=== PATIENT | female | born 1950 | race Caucasian/White ===

== ENCOUNTER → 2018-05-08 | Outpatient (CLI) | payer MEDICARE ==
[~2018-05-08] MED LIST: AMOX1TAB12 PO; ASPI-586 PO; CHOL4PAC3 PO; MELA3TAB PO; NYST1000 PO; VANC125S PO
--- NOTE | 2018-05-08 14:19 | Diagnostic Imaging Report ---
INDICATION: Right leg claudication. FINDINGS: Right common femoral artery is patent and does show biphasic waveforms. There are monophasic waveforms throughout the remainder of the right lower extremity including the entire SFA and popliteal artery as well as the posterior tibial artery. The anterior tibial as well as the dorsalis pedis are not visualized. No significant velocity elevation or high-grade stenosis is seen. IMPRESSION: Abnormal right lower extremity arterial Doppler demonstrating primarily monophasic flow. Only single vessel flow at the ankle is identified via the posterior tibial artery. No definite femoropopliteal high-grade stenosis or occlusion is seen. Dictated by: Dictated on workstation # [id number]
--- NOTE | 2018-05-08 14:37 | Diagnostic Imaging Report ---
PROCEDURE: US carotid duplex, bilateral. TECHNIQUE: Multiple real-time grayscale images were obtained over the carotid arteries in various projections, bilaterally. Additional spectral analysis and color Doppler duplex images were also obtained. INDICATION: Right carotid bruit. FINDINGS: There is plaquing identified in the right carotid bifurcation as well as the proximal left ICA. There is very mild velocity elevation in the proximal right ICA of 130 cm/s. All other velocities are unremarkable. Both vertebral arteries show antegrade flow. IMPRESSION: Bilateral carotid plaque. There is very mild velocity elevation in the proximal right ICA. No hemodynamically significant stenosis is detected. Parameters based on the consensus panel Min-Scale and Doppler ultrasound criteria published January 2003, Radiology, Volume 229. DOPPLER (peak systolic velocity M/S Right Left CCA 0.75 0.66 ICA Proximal 1.3 0.83 ICA Mid 1.0 0.94 ICA Distal 1.1 0.97 RATIO 1.7 1.5 ECA 1.3 1.0 VERT 0.57 0.27 Dictated by: Dictated on workstation # [id number]
== END ==
LOC: RAD 12:38
PROVIDERS: ATTEND Physician Assistant
DX: I65.23 Occlusion and stenosis of bilateral carotid arteries (principal); I73.9 Peripheral vascular disease, unspecified
CPT/HCPCS: 93880; 93926

== ENCOUNTER 2019-03-07 08:57 | Emergency (ER) | payer MEDICARE ==
[~2019-03-07] VITALS: Ht 165.1 cm; Wt 67.3 kg
[2019-03-07] MEDS ORDERED: CLIN150C17 PO (09:28)
--- NOTE | 2019-03-07 09:28 | ED Integumentary General ---
General Chief Complaint: Skin/Wound Problems Stated Complaint: SCALP REDNESS/PAIN History of Present Illness Date Seen by Provider: Mar 07, 2019 Time Seen by Provider: 09:23 Initial Comments Patient presenting to emergency department for evaluation of rash on the top of her head and forehead that has been present for 2 days but has been a long- standing issue for which she has seen dermatology and had a biopsy done. She said this is exactly the same condition she had in December of last year when she was seen in this emergency department. Quoting the prior physical exam "the entire crown of the patient's had almost half of her scalp is without hair has taken lichenoid tissue and numerous areas of eschar and skin color changes, cannot be certain these are not squamous cell carcinoma or basal cell carcinoma. Slight erythema noted to the entire region with a progressing to involve the entire forehead and bilateral periorbital areas," currently she does not have any periorbital involvement as it is just being crown of her head and her forehead and does not involve the back of her head or neck. She says she feels chills but no measured fevers. The rash is painful and she is on some special Selsun shampoo currently. 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 She is in no obvious distress with normal vital signs. Allergies and Home Medications Allergies Coded Allergies: No Known Drug Allergies (Unverified , 02/16/18) Home Medications Aspirin 81 Mg Tablet.dr, 81 MG PO HS, (Reported) Cholestyramine/Aspartame 4 Gm Powd.pack, 4 GM PO ACHS PRN for DIARRHEA Prescribed by: LUBA BOYLE on 02/15/18 0901 Melatonin 3 Mg Tablet, 3 MG PO HS, (Reported) Nystatin 100,000 Unit/1 Ml Oral.susp, 5 ML PO Q6HR Prescribed by: LUBA BOYLE on 02/21/18 0956 Vancomycin HCl 125 Mg/2.5 Ml Syringe, 125 MG PO QID Prescribed by: LUBA BOYLE on 02/21/18 1001 Patient Home Medication List Home Medication List Reviewed: Yes Review of Systems Review of Systems Constitutional: chills EENTM: no symptoms reported Respiratory: no symptoms reported Cardiovascular: no symptoms reported Gastrointestinal: no symptoms reported Musculoskeletal: no symptoms reported Skin: dryness, pruritus, rash Psychiatric/Neurological: No Symptoms Reported All Other Systems Reviewed Negative Unless Noted: Yes Past Thgkzse-Rmytce-Etunxs Hx Patient Social History Type Used: Cigarettes Former Smoker, Quit: Feb 07, 2018 Recent Foreign Travel: No Recent Hopitalizations: Yes (DC'D 02/15/18) Immunizations Up To Date PED Vaccines UTD: No Seasonal Allergies Seasonal Allergies: No Past Medical History Surgeries: Yes (Stents x 1) Respiratory: Yes Pneumonia, COPD Currently Using CPAP: No Currently Using BIPAP: No Cardiac: Yes Heart Attack Neurological: No Female Reproductive Disorders: Denies Sexually Transmitted Disease: No HIV/AIDS: No Genitourinary: No Bladder Infection Gastrointestinal: No Musculoskeletal: No Endocrine: No HEENT: No Cancer: No Did You Recieve Any Treatments: No Psychosocial: No Integumentary: No Blood Disorders: No Family Medical History No Pertinent Family Hx Physical Exam Vital Signs Capillary Refill : General Appearance: WD/WN, no apparent distress Neck: supple Cardiovascular: regular rate, rhythm Respiratory: no respiratory distress Extremities: normal capillary refill Neurologic/Psychiatric: alert, oriented x 3 Skin: rash (erythematous warm and tender rash involving top of her head and forehead that appears more cytolytic in nature but there is dry scabbed areas on the top of her head as well but no induration or purulence noted.) Skin Problem Location: face, scalp Progress/Results/Core Measures Progress Progress Note : Progress Note According to patient she was put on an antibiotic and a completely resolved the rash within several days and looking at the record appears that she was put on clindamycin. I will place patient on clindamycin again and this is what has helped her in a told to follow with her primary care provider within 2 days to ensure improvement and come back to the emergency Department sooner with worsening pain fevers drainage or other general concerns. Patient aware and agreeable with plan for discharge and verbalized understanding of the above instructions. Departure Impression Primary Impression: Dermatitis Additional Impression: Cellulitis Qualified Codes: L03.811 - Cellulitis of head [any part, except face] Disposition: 01 HOME, SELF-CARE Condition: Stable Departure-Patient Inst. Referrals: SELF,BECCA BRITTON (PCP/Family) Primary Care Physician Patient Instructions: Cellulitis (Skin Infection), Adult (DC) Scripts Clindamycin HCl (Clindamycin HCl) 150 Mg Capsule 450 MG PO TID for 7 Days, CAP Prov: GRACE BARILLAS DO 03/07/19 GRACE BARILLAS DO Mar 07, 2019 09:28 POS
[2019-03-07 09:36] VITALS: BP 158/75
== END 2019-03-07 09:36 | disposition home or self-care (01) ==
LOC: EDUNIT# 08:57 → ER FS 08:59
DX: L30.9 Dermatitis, unspecified (principal); L03.811 Cellulitis of head [any part, except face]; J44.9 Chronic obstructive pulmonary disease, unspecified; I25.2 Old myocardial infarction; Z79.82 Long term (current) use of aspirin
CPT/HCPCS: 99282

== ENCOUNTER 2020-08-31 10:17 | Inpatient (IN) | payer MEDICARE ==
[~2020-08-31] VITALS: Ht 165 cm; Wt 62.8 kg
[~2020-08-31 10:17] MED LIST changes: +CLIN150C18 PO; -MELA3TAB PO; +MELA3TAB39 PO
[2020-08-31] MEDS ORDERED: ASPIRIN 81 MG CHEW (CHILDREN'S ASA) PO STA (10:33)
[2020-08-31] MEDS ORDERED: hydrALAZINE (APESOLINE) 20 MG/ML VIAL IV STA (10:34)
[2020-08-31 10:37] LABS: BASOPHILS # (AUTO) 0.1 10^3/uL (0.0-0.1); BASOPHILS % (AUTO) 1 % (0-10); EOSINOPHILS # (AUTO) 0.2 10^3/uL (0.0-0.3); EOSINOPHILS % (AUTO) 2 % (0-10); HEMATOCRIT 46 % (35-52); HEMOGLOBIN 15.5 G/DL (11.5-16.0); LYMPHOCYTES # (AUTO) 3.3 X 10^3 (1.0-4.0); LYMPHOCYTES % (AUTO) 42 % (12-44); MEAN CORPUSCULAR HEMOGLOBIN 32 PG (25-34); MEAN CORPUSCULAR HGB CONC 34 G/DL (32-36); MEAN CORPUSCULAR VOLUME 96 FL (80-99); MEAN PLATELET VOLUME 9.7 FL (7.4-10.4); MONOCYTES # (AUTO) 0.6 X 10^3 (0.0-1.0); MONOCYTES % (AUTO) 7 % (0-12); NEUTROPHILS # (AUTO) 3.7 X 10^3 (1.8-7.8); NEUTROPHILS % (AUTO) 72 % (42-75); PLATELET COUNT 418 10^3/uL (130-400); WHITE BLOOD COUNT 7.9 10^3/uL (4.3-11.0)
--- NOTE | 2020-08-31 10:41 | ED Chest Pain ---
General Chief Complaint: Chest Pain Stated Complaint: CHEST PAIN/BURNING | LEFT SIDE ARM WEAKNESS Source: patient, spouse History of Present Illness Date Seen by Provider: Aug 31, 2020 Time Seen by Provider: 10:19 Initial Comments 70 yo female presenting with complaints of diffuse chest burning and radiation into neck/throat. this has been going on since night after she had overexerted herself and mowed the lawn and did a lot outdoors. She has had intermittent chest pains since then. She states his pain feels similar to when she had heart attack in the past about 6 years ago. She was in [place] at the time she had heart attack. She also has had some dizzy and light headed sensation at times but been about a week ago. She had been feeling bad all weekend but did not seek medical care as she 'does not like to go to the doctor". She does not take prescription medicines. She is supposed to be taking a blood pressure medicine but again has not followed up had any refills of the medication for over a year. She states it was bothering her stomach so she stopped taking it. She did take an extra baby aspirin Tuesday night and thought it helps with her pain so she has been taking a baby aspirin at night and in the morning the last several days. She denies any nausea or vomiting. She has had shortness of breath and cough but is a smoker. Since her symptoms started she has cut back from a pack a day to 6 to 10 cigarettes a day. She denies any allergies to medications. On the way to the emergency department she was having pain and left arm was heavy and numb. On arrival to the ED the symptoms have resolved. Timing/Duration: intermittent, gone now, 3-4 days Severity/Quality: severe, burning Location: central (across upper chest and into throat/neck) Radiation: neck (/throat) Activities at Onset: activity (mowed the lawn and overexerted herself) Prior CP/Workup: angina, cardiac cath, heart attack (6 years ago with stent) Modifying Factors: improves with rest, improves with other (aspirin) ASA po EMPLOYMENT CONSULTANT: Yes (last night 81 mg) NTG SL EMPLOYMENT CONSULTANT: No Associated Symptoms: No abdominal pain, No back pain, No diaphoresis; dizziness; No edema; fatigue; No fever/chills, No headache; heartburn; No nausea /vomiting, No rash; shortness of breath; No swelling/lump in chest, No syncope; weakness (general) Allergies and Home Medications Allergies Coded Allergies: No Known Drug Allergies (Unverified , 02/16/18) Home Medications Aspirin 81 Mg Tablet.dr, 81 MG PO HS, (Reported) Last Action: Reviewed Melatonin 3 Mg Tablet, 3 MG PO HS, (Reported) Last Action: Reviewed Patient Home Medication List Home Medication List Reviewed: Yes Review of Systems Review of Systems Constitutional: No chills; dizziness; No fever EENTM: No Blurred Vision, No Double Vision Respiratory: Cough, Shortness of Air Cardiovascular: See HPI Gastrointestinal: Denies Nausea, Denies Vomiting Genitourinary: No Symptoms Reported Musculoskeletal: no symptoms reported Skin: No rash Psychiatric/Neurological: Denies Headache; Tingling (left arm with heaviness when she was on her way to the ED) Hematologic/Lymphatic: Denies Blood Clots Past Iilyklq-Rwchep-Jwavuf Hx Past Med/Social Hx: Reviewed Nursing Past Med/Soc Hx Patient Social History Type Used: Cigarettes Former Smoker, Quit: Feb 07, 2018 2nd Hand Smoke Exposure: No Recent Hopitalizations: Yes (DC'D 02/15/18) Immunizations Up To Date PED Vaccines UTD: No Seasonal Allergies Seasonal Allergies: No Past Medical History Surgeries: Yes (Stents x 1) Respiratory: Yes Pneumonia, COPD Currently Using CPAP: No Currently Using BIPAP: No Cardiac: Yes Heart Attack, High Cholesterol, Hypertension Neurological: No Female Reproductive Disorders: Denies 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 3.0oz. 66.903186ms; 24.00 BMI Method:Stated General Appearance: No Apparent Distress, WD/WN HEENT: PERRL/EOMI, Pharynx Normal Neck: Full Range of Motion, Normal Inspection, Non Tender, Supple; No Carotid Bruit Respiratory: Chest Non Tender, Lungs Clear, Normal Breath Sounds, No Accessory Muscle Use, No Respiratory Distress Cardiovascular: Regular Rate, Rhythm, No Murmur, Normal Peripheral Pulses Gastrointestinal: Normal Bowel Sounds, No Pulsatile Mass, Non Tender, Soft Rectal: Deferred Extremity: Normal Capillary Refill, Normal Inspection, Normal Range of Motion, Non Tender, No Calf Tenderness, No Pedal Edema Neurologic/Psychiatric: Alert, Oriented x3, No Motor/Sensory Deficits, 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 resolved on arrival to ED Critical Care Note Critical Care Total Time (minutes) 45 minutes Progress 45 minutes of critical care time was spent with the patient. This time excludes separately billable procedures. Time was spent in obtaining history from the patient and family, ordering test and reviewing results, ordering interventions and reviewing response, discussion with consultants, documentation in the chart. Due to the patient's chest pain and risk of cardiovascular compromise she required my constant and immediate presence and care. Progress/Results/Core Measures Results/Orders Lab Results Laboratory Tests Test 08/31/20 10:24 Range/Units White Blood Count 7.9 4.3-11.0 10^3/uL Red Blood Count 4.85 4.35-5.85 10^6/uL Hemoglobin 15.5 11.5-16.0 G/DL Hematocrit 46 35-52 % Mean Corpuscular Volume 96 80-99 FL Mean Corpuscular Hemoglobin 32 25-34 PG Mean Corpuscular Hemoglobin Concent 34 32-36 G/DL Red Cell Distribution Width 13.9 10.0-14.5 % Platelet Count 418 H 130-400 10^3/uL Mean Platelet Volume 9.7 7.4-10.4 FL Immature Granulocyte % (Auto) 0 % Neutrophils (%) (Auto) 72 42-75 % Lymphocytes (%) (Auto) 42 12-44 % Monocytes (%) (Auto) 7 0-12 % Eosinophils (%) (Auto) 2 0-10 % Basophils (%) (Auto) 1 0-10 % Neutrophils # (Auto) 3.7 1.8-7.8 X 10^3 Lymphocytes # (Auto) 3.3 1.0-4.0 X 10^3 Monocytes # (Auto) 0.6 0.0-1.0 X 10^3 Eosinophils # (Auto) 0.2 0.0-0.3 10^3/uL Basophils # (Auto) 0.1 0.0-0.1 10^3/uL Immature Granulocyte # (Auto) 0.0 0.0-0.1 10^3/uL Prothrombin Time 12.7 12.2-14.7 SEC INR Comment 0.9 0.8-1.4 Activated Partial Thromboplast Time 27 24-35 SEC Sodium Level 139 135-145 MMOL/L Potassium Level 4.4 3.6-5.0 MMOL/L Chloride Level 102 98-107 MMOL/L Carbon Dioxide Level 25 21-32 MMOL/L Anion Gap 12 5-14 MMOL/L Blood Urea Nitrogen 12 7-18 MG/DL Creatinine 0.76 0.60-1.30 MG/DL Estimat Glomerular Filtration Rate > 60 BUN/Creatinine Ratio 16 Glucose Level 102 70-105 MG/DL Calcium Level 10.0 8.5-10.1 MG/DL Corrected Calcium 8.5-10.1 MG/DL Magnesium Level 2.2 1.6-2.4 MG/DL Total Bilirubin 0.3 0.1-1.0 MG/DL Aspartate Amino Transf (AST/SGOT) 21 5-34 U/L Alanine Aminotransferase (ALT/SGPT) 14 0-55 U/L Alkaline Phosphatase 133 40-136 U/L Troponin I 1.58 *H <0.30 NG/ML Pro-B-Type Natriuretic Peptide 1366.0 H <75.0 PG/ML Total Protein 8.7 H 6.4-8.2 GM/DL Albumin 4.6 H 3.2-4.5 GM/DL Lipase 59 8-78 U/L My Orders Orders - EMMY CARSON MD Cbc With Automated Diff (08/31/20 10:33) Magnesium (08/31/20 10:33) Chest 1 View Ap/Pa Only (08/31/20 10:33) Ekg Tracing (08/31/20 10:33) Comprehensive Metabolic Panel (08/31/20 10:33) Protime With Inr (08/31/20 10:33) Partial Thromboplastin Time (08/31/20 10:33) O2 (08/31/20 10:33) Monitor-Rhythm Ecg Trace Only (08/31/20 10:33) Aspirin Chewable Tablet (Baby Aspirin Ch (08/31/20 10:33) Ed Iv/Invasive Line Start (08/31/20 10:33) Lipase (08/31/20 10:33) Troponin I Fs (08/31/20 10:33) Probnp Fs (08/31/20 10:33) Hydralazine Injection (Apresoline Inject (08/31/20 10:34) Ct Head Wo (08/31/20 10:34) Ekg Tracing (08/31/20 11:04) Nitroglycerin 0.4 Mg Btl 25's (Nitrostat (08/31/20 11:15) O2 (08/31/20 11:08) Heparin Drip 77038 Unit/500ml (Heparin (08/31/20 11:15) Heparin (Bolus Per Protocol) (Heparin (B (08/31/20 11:08) Clopidogrel Tablet (Plavix Tablet) (08/31/20 11:08) Morphine Injection (Morphine Injection (08/31/20 11:08) Medications Given in ED Current Medications Medications Dose Ordered Sig/Scottie Route Start Time Stop Time Status Last Admin Dose Admin Nitroglycerin 1 TAB Q 5 MIN X 3 NEEDED PRN SL 08/31/20 11:15 08/31/20 11:12 0.4 MG Vital Signs/I&O 08/31/20 08/31/20 10:20 10:20 Temp 36.7 Pulse 85 Resp 18 B/P (MAP) 211/92 (131) Pulse Ox 97 O2 Delivery Room Air Room Air Progress Progress Note #1: Progress Note obtain ECG, labs, CXR, CT head for dizzy/light headed Initial ECG shows possible ischemic changes with ST depression and flipped t waves in lateral leads. Give aspirin 243 mg since she had 81 mg already at home. For her hypertension will give a dose of hydralazine [address] head and obtaining labs with cardiac enzymes and chest xray. Use Hydralazine instead of beta cezar since she had heart rate in low 60s currently and did not want to further slow her rate. Differential diagnosis includes myocardial infarction in the last few days with staggering chest pain symptoms, acute myocardial infarction, stroke, hypertensive crisis, GERD with esophageal spasm, COPD, pneumonia, lung mass Progress Note #2: Time: 10:58 Progress Note Lab called with troponin of 1.58. Chest x-ray does not show acute process. CT head is also without acute process. When discussing results of elevated troponin with the patient she states that she was having chest pain at 6 or 7 out of 10 that started when she was moving in radiology. Will obtain a repeat electrocardiogram now that she is having chest pain. Counseled that I needed to get her transferred to facility that had cardiology and likely going to [facility]. She was agreeable to go to [facility] in [place]. Ordered nitroglycerin sublingual for her chest pain and in the process of ordering heparin when Dr. Ward with cardiology returned my page. [phone] he accepted the patient and recommended she go straight to [facility] with her having ST elevation and chest pain. He suggested no further nitroglycerin as it could drop her blood pressure. He prefer morphine for pain. Heparin 4000 unit bolus and approximately 1000 units/h after that. He also requested Plavix 300 mg p.o. When I went back to discuss these plans with the patient and family her blood pressure had come down so a fluid bolus was ordered. Also her pain had resolved with a single nitroglycerin 0.4 mg sublingual. Repeat ECG showed now that her lateral lead changes of ischemia with flipped t waves was flattened and now she has ST elevation of 1-2 mm in II, III, aVF. 1128 with IVF bolus infusing and having pt lay flat she has blood pressure improving from 75 systolic up to 99 systolic. Her mental status improved as well. EMS transporting her [facility] to [facility] to go to [facility]. Initial ECG Impression Date: Aug 31, 2020 Initial ECG Impression Time: 10:19 Initial ECG Rate: 67 Initial ECG Rhythm: Normal Sinus Initial ECG Comparisson: No Previous ECG Available Comment Normal sinus rhythm with a heart rate of 67 bpm. IA interval [address] elevation. Repolarization changes in the lateral leads suggesting ischemia with ST depression in 1, aVL, V5, V6. QT intervals 400 ms with a QTc interval 423 ms. There is no prior tracing available for comparison. EKG : EKG Time: 10:59 Rate: 64 Rhythm: Normal Sinus ECG Comparisson: Changed Comment Normal sinus rhythm with a heart rate of 64 bpm. IA interval 170 ms. QT interval 374 ms with a QTc interval 386 ms. Now she has findings for an inferior infarct with ST elevation greater than 1 mm in lead III and greater than was present in lead II. She has flattening of the flipped T waves that were present in the previous electrocardiogram. There is [address] elevation in leads II, III, aVF Diagnostic Imaging Diagonstic Imaging: Xray Plain Films/CT/US/NM/MRI: chest Comments [facility], [place] NAME: BALDO MASSEY [facility] REC#: [id number] PT STATUS: REG ER : 1950 PHYSICIAN: EMMY CARSON MD ADMIT DATE: 08/31/20/ER FS Draft Date of Exam:08/31/20 CHEST 1 VIEW AP/PA ONLY INDICATION: Cough, pain. COMPARISON: 02/13/2020 TECHNIQUE: Single radiograph of the chest dated 08/31/2020 FINDINGS: The cardiac silhouette is within normal limits in size. No significant pulmonary vascular congestion. The lungs are clear. No pleural effusion. No pneumothorax. No acute osseous abnormality. IMPRESSION: Similar-appearing examination without acute cardiopulmonary abnormality. Dictated on workstation # [id number] Dict: 08/31/20 1056 Trans: 08/31/20 1104 [id number] Interpreted by: JAVI LONGO MD Electronically signed by: Reviewed: Reviewed by Nh Diagonstic Imaging: CT Plain Films/CT/US/NM/MRI: head Comments [facility] [place] NAME: BALDO MASSEY [facility] REC#: [id number] PT STATUS: REG ER : 1950 PHYSICIAN: EMMY CARSON MD ADMIT DATE: 08/31/20/ER FS Draft Date of Exam:08/31/20 CT HEAD WO PROCEDURE: CT head without contrast. TECHNIQUE: Multiple contiguous axial images were obtained through the brain without the use of intravenous contrast. Auto Exposure Controls were utilized during the CT exam to meet ALARA standards for radiation dose reduction. INDICATION: Dizziness, lightheadedness, high blood pressure. COMPARISON: None available. FINDINGS: Mild atrophy. No intra-cranial hemorrhage. No intracranial mass, mass effect, midline shift, herniation, hydrocephalus, or extra-axial fluid collection. No definite CT evidence of an acute ischemic infarction. The orbits are unremarkable. The paranasal sinuses are clear. The calvarium and extracalvarial soft tissues are unremarkable. IMPRESSION: No acute intracranial abnormality with mild atrophy present. Should symptoms persist, consideration for an MRI could be made. Dictated on workstation # [id number] Dict: 08/31/20 1057 Trans: 08/31/20 1103 [id number] Interpreted by: JAVI LONGO MD Electronically signed by: Reviewed: Reviewed by Me CP/AMI: Aspirin, B-Cezar (held due to low heart rate), ECG, Nitrates, Transfer (going to laborer/key man in [facility]) Departure Communication (Admissions) Time/Spoke to Admitting Phy: 11:14 d/w Dr. Ward for cardiology and will give pt Plavix 300 mg po, Heparin 4000 unit bolus, then 12 units/kg/hr for ACS heparin protocol. He requested morphine if needed for further pain instead of nitroglycerin. She will go straight to laborer/key man. Impression Primary Impression: Acute myocardial infarction Qualified Codes: I21.3 - ST elevation (STEMI) myocardial infarction of unspecified site Additional Impressions: Chest pain Qualified Codes: R07.89 - Other chest pain Hypertension Qualified Codes: I10 - Essential (primary) hypertension Disposition: 30 STILL A PATIENT Condition: Critical Admissions Decision to Admit Reason: Admit from ER (General) Decision to Admit/Date: Aug 31, 2020 Time/Decision to Admit Time: 11:14 Departure-Patient Inst. Referrals: BECCA SIMON MD (PCP/Family) Primary Care Physician EMMY CARSON MD Aug 31, 2020 10:41
[2020-08-31 10:50] LABS: INR 0.9 (0.8-1.4); PROTHROMBIN TIME PATIENT 12.7 SEC (12.2-14.7)
[2020-08-31 10:51] LABS: ALANINE AMINOTRANSFERASE 14 U/L (0-55); ALBUMIN 4.6 GM/DL (3.2-4.5); ALKALINE PHOSPHATASE 133 U/L (40-136); BILIRUBIN,TOTAL 0.3 MG/DL (0.1-1.0); BUN/CREATININE RATIO 16; CARBON DIOXIDE 25 MMOL/L (21-32); CHLORIDE 102 MMOL/L (98-107); CREATININE SERUM 0.76 MG/DL (0.60-1.30); GFR ESTIMATED > 60; GLUCOSE 102 MG/DL (70-105); POTASSIUM 4.4 MMOL/L (3.6-5.0); SODIUM 139 MMOL/L (135-145); TOTAL PROTEIN 8.7 GM/DL (6.4-8.2)
[2020-08-31 10:58] LABS: MAGNESIUM 2.2 MG/DL (1.6-2.4)
[2020-08-31 11:04] LABS: LIPASE 59 U/L (8-78)
--- NOTE | 2020-08-31 11:04 | Diagnostic Imaging Report ---
PROCEDURE: CT head without contrast. TECHNIQUE: Multiple contiguous axial images were obtained through the brain without the use of intravenous contrast. Auto Exposure Controls were utilized during the CT exam to meet ALARA standards for radiation dose reduction. INDICATION: Dizziness, lightheadedness, high blood pressure. COMPARISON: None available. FINDINGS: Mild atrophy. No intra-cranial hemorrhage. No intracranial mass, mass effect, midline shift, herniation, hydrocephalus, or extra-axial fluid collection. No definite CT evidence of an acute ischemic infarction. The orbits are unremarkable. The paranasal sinuses are clear. The calvarium and extracalvarial soft tissues are unremarkable. IMPRESSION: No acute intracranial abnormality with mild atrophy present. Should symptoms persist, consideration for an MRI could be made. Dictated by: Dictated on workstation # [id number]
--- NOTE | 2020-08-31 11:04 | Diagnostic Imaging Report ---
INDICATION: Cough, pain. COMPARISON: 02/13/2020 TECHNIQUE: Single radiograph of the chest dated 08/31/2020 FINDINGS: The cardiac silhouette is within normal limits in size. No significant pulmonary vascular congestion. The lungs are clear. No pleural effusion. No pneumothorax. No acute osseous abnormality. IMPRESSION: Similar-appearing examination without acute cardiopulmonary abnormality. Dictated by: Dictated on workstation # [id number]
[2020-08-31] MEDS ORDERED: CLOPIDOGREL 300 MG (PLAVIX) TABLET PO STA (11:08)
[2020-08-31] MEDS ORDERED: HEParin 1000 UNIT/ML (10ML VIAL) FOR BOLUS IV ONE (11:08)
[2020-08-31] MEDS ORDERED: morphine INJ 10 MG/ML 1ML (SYR OR VIAL) IVP STA (11:08)
[2020-08-31] MEDS ORDERED: NITROGLYCERIN 0.4 MG SL TABS BTL 25'S SL PRN (11:15)
[2020-08-31] MEDS ORDERED: HEParin DRIP 25000 UNIT/500ML 500 ML IV ONE (11:15)
[2020-08-31] MEDS ORDERED: MIDAZOLAM 5 MG/5 ML (VERSED) VIAL ONE (11:25)
[2020-08-31] MEDS ORDERED: HEParin 1000 UNIT/ML (10ML VIAL) FOR BOLUS ONE (11:25)
[2020-08-31] MEDS ORDERED: NS IV 1000 ML 1,000 ML ONE ×2 (11:25→11:29)
[2020-08-31] MEDS ORDERED: NITRO DRIP 25000 MCG/D5W 250 ML IV ONE (11:25)
[2020-08-31] MEDS ORDERED: LIDOCAINE 1% INJ 20 ML 20 ML VIAL ONE ×3 (11:25→12:27)
[2020-08-31] MEDS ORDERED: HEParin (CATH LAB) 2,000 ML IV ONE (11:25)
[2020-08-31] MEDS ORDERED: fentaNYL INJ 100 MCG/2 ML AMP ONE (11:25)
[2020-08-31] MEDS ORDERED: NS IV 1000 ML 1,000 ML IV STA (11:27)
[2020-08-31] MEDS ORDERED: EPTIFIBATIDE BOLUS 20 ML IV ONE (12:43)
[2020-08-31] MEDS ORDERED: ATROPINE INJECTION 1 MG/10 ML SYR (ABBOTT) ONE (12:51)
[2020-08-31] MEDS ORDERED: CLOPIDOGREL 300 MG (PLAVIX) TABLET PO ONE (12:56)
[2020-08-31] MEDS ORDERED: PATIENT MAY USE OWN MEDS, ALL PO SCH (13:45)
--- NOTE | 2020-08-31 13:58 | Cardiology History & Physical ---
HPI-Cardiology Cardiology H&P Date of Admission 08/31/20 Primary Care Physician Javid Melgar MD Attending Physician Will Ward MD, MA FACP [facility] CCDS Consulting Physician JEAN-PIERRE CC: Chest discomfort HPI: 70 woman who presented to [facility] ER with one day of waxing and waning chest discomfort, worse today, mid sternal, radiating to shoulders, w/o any associated symptoms, mild to moderately severe, w/o aggravating or relieving factors, not experience before. Initially, ECG showed T wave changes and later there was mild ST elevation in inferior lead noted by the ER physician at [facility] who then called us and the patient was transferred to the laboratory coordinator here after her consent for card cath and possible ad hoc cor intervention. No n/v/d. Urgent card cath and cor intervention undertaken (see below) and she is currently feeling well. Review of Systems-Cardiology Review of Systems Constitutional: malaise, tiredness; No weight loss; weight gain Eyes: No vision change Ears/Nose/Throat: No ear discharge, No nasal drainage, No recent hearing loss, No ulcerations Respiratory: SOB with excertion (chronic, slowly progressive) Cardiovascular: As described under HPI Gastrointestinal: As described under HPI Genitourinary: No dysuria, No hematuria, No urine frequency changes Musculoskeletal: No back pain, No joint pain Skin: No rash, No ulcerations Psychiatric/Neurological: No seizure Hematologic: No bleeding abnormalities [id number] Hx Patient Social History Smoking Status: Current Everyday Smoker 2nd Hand Smoke Exposure: No Immunizations Up To Date Tetanus Booster (TDap): Unknown Past Medical History PMH As described under Assessment. Family Medical History Family Medical History: Mother had [place] at age 65 Father had CHF in his late 40s Allergies and Home Medications Allergies Coded Allergies: No Known Drug Allergies (Unverified , 02/16/18) Home Medications Aspirin 81 Mg Tablet.dr, 81 MG PO HS, (Reported) Last Action: Reviewed Melatonin 3 Mg Tablet, 3 MG PO HS, (Reported) Last Action: Reviewed Patient Home Medication List Home Medication List Reviewed: Yes Physical Exam-Cardiology Physical Exam Vital Signs/I&O 08/31/20 08/31/20 08/31/20 10:20 10:20 11:29 Temp 36.7 36.7 Pulse 85 Resp 18 B/P (MAP) 211/92 (131) Pulse Ox 97 O2 Delivery Room Air Room Air Capillary Refill : Less Than 3 Seconds Constitutional: AAO x 3, well-developed, well-nourished HEENT: EOMI, hearing is well preserved; No xanthelasmas are seen Neck: carotid pulses are 2 + bilaterally, with good upstrokes Respiratory: No accessory muscle use; other (Fair air entry, prolonged exp) Cardiovascular: regular rate-rhythm, S1 and S2, systolic murmur (soft NOE at card base) Gastrointestinal: No tender; soft; No guarding, No rebound; audible bowel sounds Extremities: No clubbing, No cyanosis, No significant edema Neurologic/Psychiatric: oriented x 3, other (moves all limbs equally) Skin: normal color, warm/dry; No rash on exposed areas, No ulcerations on expos ed areas Data Review Labs Laboratory Tests 08/31/20 10:24: White Blood Count 7.9, Red Blood Count 4.85, Hemoglobin 15.5, Hematocrit 46, Mean Corpuscular Volume 96, Mean Corpuscular Hemoglobin 32, Mean Corpuscular Hemoglobin Concent 34, Red Cell Distribution Width 13.9, Platelet Count 418H, Mean Platelet Volume 9.7, Immature Granulocyte % (Auto) 0, Neutrophils (%) (Auto) 72, Lymphocytes (%) (Auto) 42, Monocytes (%) (Auto) 7, Eosinophils (%) (Auto) 2, Basophils (%) (Auto) 1, Neutrophils # (Auto) 3.7, Lymphocytes # (Auto) 3.3, Monocytes # (Auto) 0.6, Eosinophils # (Auto) 0.2, Basophils # (Auto) 0.1, Immature Granulocyte # (Auto) 0.0, Prothrombin Time 12.7, INR Comment 0.9, Activated Partial Thromboplast Time 27, Sodium Level 139, Potassium Level 4.4, Chloride Level 102, Carbon Dioxide Level 25, Anion Gap 12, Blood Urea Nitrogen 12, Creatinine 0.76, Estimat Glomerular Filtration Rate > 60, BUN/Creatinine Ratio 16, Glucose Level 102, Calcium Level 10.0, Corrected Calcium , Magnesium Level 2.2, Total Bilirubin 0.3, Aspartate Amino Transf (AST/SGOT) 21, Alanine Aminotransferase (ALT/SGPT) 14, Alkaline Phosphatase 133, Troponin I 1.58*H, Pro-B-Type Natriuretic Peptide 1366.0H, Total Protein 8.7H, Albumin 4.6H, Lipase 59 A/P-Cardiology Assessment/Admission Diagnosis Ac inf wall STEMI, treated with primary PCI on 08/31/20 (see below) CAD - h/o cor stent in [place] several years ago (she does not know details) - card cath of 08/31/20: cor calcium present, 60-70% mid-LAD, patent stents in prox portion of a dominant RCA, distal occlusion of RCA treated with Zuri 2.75 x 18 stent on 08/31/20, posterobasal & diaphragmatic akinesis, LVEF 40% PAD of which she does not know any details - observations at time of card cath of 08/31/20: kissing stents of ostial common iliacs, stent in R common and sup femoral (prevented sheat insertion) Chronic tobacco use (1 ppd) Vague h/o COPD Admission Status: Inpatient Order (span 2 midnights) Reason for Inpatient Admission: Acute ST elevation [place] Discussion and Recomendations * BB * Statin * DAPT * CHRISTOPHE-inhib * Monitor labs * Advised to quit smoking immediately and completely Clinical Quality Measures AMI/AHF: ASA po Prior to arrival: Yes (last night 81 mg) WILL WARD MD FACP FACC CCDS Aug 31, 2020 13:58
[2020-08-31] MEDS ORDERED: ACETAMINOPHEN 325 MG TABLET PO PRN (14:00)
[2020-08-31] MEDS ORDERED: NS IV 500 ML 500 ML IV SCH (15:45)
[2020-08-31] MEDS ORDERED: HEParin DRIP 25000 UNIT/500ML 500 ML IV SCH (16:00)
[2020-08-31] MEDS ORDERED: HEParin 1000 UNIT/ML (10ML VIAL) FOR BOLUS IV PRN (16:00)
[2020-08-31 17:16] LABS: BASOPHILS # (AUTO) 0.1 10^3/uL (0.0-0.1); BASOPHILS % (AUTO) 1 % (0-10); EOSINOPHILS # (AUTO) 0.1 10^3/uL (0.0-0.3); EOSINOPHILS % (AUTO) 1 % (0-10); HEMATOCRIT 38 % (35-52); HEMOGLOBIN 12.6 g/dL (11.5-16.0); LYMPHOCYTES # (AUTO) 2.2 10^3/uL (1.0-4.0); LYMPHOCYTES % (AUTO) 27 % (12-44); MEAN CORPUSCULAR HEMOGLOBIN 32 pg (25-34); MEAN CORPUSCULAR HGB CONC 33 g/dL (32-36); MEAN CORPUSCULAR VOLUME 97 fL (80-99); MEAN PLATELET VOLUME 9.9 fL (9.0-12.2); MONOCYTES # (AUTO) 0.5 10^3/uL (0.0-1.0); MONOCYTES % (AUTO) 6 % (0-12); NEUTROPHILS # (AUTO) 5.3 10^3/uL (1.8-7.8); NEUTROPHILS % (AUTO) 66 % (42-75); PLATELET COUNT 308 10^3/uL (130-400); WHITE BLOOD COUNT 8.1 10^3/uL (4.3-11.0)
[2020-08-31 17:50] LABS: NEUTROPHILS % (MANUAL) 65 %
[2020-08-31 17:51] LABS: BAND NEUTROPHILS 1 %; BASOPHILS % (MANUAL) 1 %; BLAST CELLS 1 %; LYMPHOCYTES % (MANUAL) 27 %; METAMYELOCYTES % 1 %; MONOCYTES % (MANUAL) 4 %
[2020-08-31 17:52] LABS: ANISOCYTOSIS SLIGHT; HYPOCHROMASIA SLIGHT
[2020-08-31] MEDS: NS IV 1000 ML 1,000 ML IV SCH (18:12)
--- NOTE | 2020-08-31 18:20 | CARDIAC CATHETERIZATION ---
DATE OF SERVICE: 08/31/2020 CARDIAC CATHETERIZATION AND CORONARY INTERVENTION REPORT The patient is a 70-year-old lady who presented to the [place] [facility] with chest pain for more than 12 hours. Initial electrocardiogram did not show ST elevation. Subsequent electrocardiogram showed mild ST elevation in the inferior leads. She was transferred to this hospital for further evaluation and treatment. Informed consent for cardiac catheterization and ad hoc coronary intervention was obtained. DESCRIPTION OF PROCEDURE: She was brought to the cardiac catheterization laboratory. Right groin was prepared and draped in the usual sterile fashion. Lidocaine 1% was used for local anesthesia. We were able to advance a guidewire into the right femoral artery, but were not able to advance the sheath. This was because the patient has a femoral stent in place, which was not allowing passage of a sheath. Wire was removed and pressure was held, meanwhile, we used the left groin approach, which had been prepared and draped in the usual sterile fashion again, we used 1% lidocaine and we used a modified Seldinger technique to advance a 6-Georgian sheath into the right femoral artery. We then carried out right and left coronary angiography using 6-Georgian JL4 catheter for left coronary angiography and 6-Georgian JR4 catheter was used for right coronary angiography. We then carried out percutaneous intervention of the right coronary artery that is described below. Following the completion of the interventional procedure, we carried out left heart catheterization with a 6-Georgian pigtail catheter. Left ventricular angiography was performed and the pigtail was then pulled back and removed. The left groin sheath was sutured in place. There was good hemostasis at the site of attempted access in the right groin. Overall, the patient tolerated the procedure well. PERCUTANEOUS INTERVENTION OF THE RIGHT CORONARY ARTERY: The right coronary artery was found to be occluded in its distal portion, prior to the origin of the posterior descending branch. We used a 6-Georgian JR4 guide catheter to engage the right coronary artery and a ChoICE floppy wire to cross the lesion and the tip of the wire was placed in the distal, terminal portion of the right coronary artery. We carried out balloon angioplasty with a 2.0 x 30 mm balloon and then stented the lesion with a Zuri 2.75 x 18 mm stent that was deployed at 14 atmospheres. This stent slightly overlaps the distal end of a previously stented segment. The articulation was again ballooned with the stent balloon that was deployed at 20 atmospheres. Subsequent angiography revealed 0% residual stenosis at the previous site of 99% to 100% occlusion and flow throughout the vessel is KANDI 3. Prior to the procedure, flow in the distal vessel was KANDI 0-1. The very distal right coronary artery has a 50 to 60% stenoses that were not intervened on. HEMODYNAMICS: Left ventricular end-diastolic pressure following coronary angiography was 8 mmHg. There is no significant pressure gradient on pullback across the aortic valve. Ascending aortic pressure was 128/50 with a mean of 81 mmHg. CORONARY ANGIOGRAPHY: Coronary calcification is present. Left main coronary artery does not exhibit significant disease. Left anterior descending artery has a fairly long 60% to 70% stenosis in its mid portion. Left circumflex artery is nondominant and has mild plaques. Right coronary artery is stented in its proximal and mid portions and there was occluded in its distal portion. Following deployment of Zuri 2.75 x 18 mm stent in the distal right coronary, there is no significant residual stenosis and flow throughout the vessel has improved from KANDI 0 to KANDI 3. The very distal right coronary artery has 50% to 60% stenosis that were not intervened on. LEFT VENTRICULAR ANGIOGRAPHY: Left ventricular angiography was carried out in the right anterior oblique projection. There is posterobasal and diaphragmatic akinesis. Left ventricular ejection fraction approximately 40%. CONCLUSIONS: 1. Coronary artery disease consisting primarily of distal vessel occlusion of the right coronary to which successful stenting was carried out with Zuri 2.75 x 18 mm stent. The proximal and mid right coronary artery has patent stents. The distal right coronary artery has 50% to 60% stenosis that were not intervened on. The left anterior descending artery has long 60% to 70% stenosis in its mid portion that was not intervened on at this time. 2. Impairment of global left ventricular systolic function with ejection fraction of 40%. 3. Posterobasal and diaphragmatic akinesis. DISCUSSION AND RECOMMENDATIONS: We have advised her to quit smoking immediately and completely. Dual antiplatelet therapy has been initiated and is being continued. Beta michael therapy will be given as tolerated. CHRISTOPHE inhibitor therapy will be given as tolerated by blood pressure. Statin therapy is also being initiated. She remains hospitalized at the time of this dictation. Job ID: [id number] DocumentID: [id number] Dictated Date: 08/31/2020 13:30:[address] Date: 08/31/2020 18:19:58 Dictated By: MARCELLA SUBRAMANIAN MD, MA, FACP, FACC, MTDD
[2020-09-01 02:49] LABS: BASOPHILS # (AUTO) 0.1 10^3/uL (0.0-0.1); BASOPHILS % (AUTO) 1 % (0-10); EOSINOPHILS # (AUTO) 0.2 10^3/uL (0.0-0.3); EOSINOPHILS % (AUTO) 2 % (0-10); HEMATOCRIT 34 % (35-52); HEMOGLOBIN 11.2 g/dL (11.5-16.0); LYMPHOCYTES # (AUTO) 1.7 10^3/uL (1.0-4.0); LYMPHOCYTES % (AUTO) 24 % (12-44); MEAN CORPUSCULAR HEMOGLOBIN 31 pg (25-34); MEAN CORPUSCULAR HGB CONC 33 g/dL (32-36); MEAN CORPUSCULAR VOLUME 95 fL (80-99); MEAN PLATELET VOLUME 10.1 fL (9.0-12.2); MONOCYTES # (AUTO) 0.6 10^3/uL (0.0-1.0); MONOCYTES % (AUTO) 8 % (0-12); NEUTROPHILS # (AUTO) 4.7 10^3/uL (1.8-7.8); NEUTROPHILS % (AUTO) 65 % (42-75); PLATELET COUNT 299 10^3/uL (130-400); WHITE BLOOD COUNT 7.3 10^3/uL (4.3-11.0)
[2020-09-01 03:02] LABS: ALBUMIN 3.3 GM/DL (3.2-4.5); CHLORIDE 112 MMOL/L (98-107); POTASSIUM 3.9 MMOL/L (3.6-5.0); SODIUM 141 MMOL/L (135-145)
[2020-09-01 03:03] LABS: CALCIUM 8.6 MG/DL (8.5-10.1)
[2020-09-01 03:04] LABS: TRIGLYCERIDES 148 MG/DL (<150); VLDL CHOLESTEROL 30 MG/DL (5-40)
[2020-09-01 03:05] LABS: GLUCOSE 89 MG/DL (70-105); TOTAL PROTEIN 6.3 GM/DL (6.4-8.2)
[2020-09-01 03:06] LABS: BILIRUBIN,TOTAL 0.4 MG/DL (0.1-1.0); CARBON DIOXIDE 18 MMOL/L (21-32)
[2020-09-01 03:08] LABS: ALKALINE PHOSPHATASE 78 U/L (40-136); CREATININE SERUM 0.77 MG/DL (0.60-1.30); GFR ESTIMATED > 60; PHOSPHORUS 3.7 MG/DL (2.3-4.7)
[2020-09-01 03:09] LABS: BUN/CREATININE RATIO 17; CHOLESTEROL 232 MG/DL (< 200)
[2020-09-01 03:10] LABS: HDL CHOLESTEROL 44 MG/DL (40-60)
[2020-09-01 03:11] LABS: ALANINE AMINOTRANSFERASE 12 U/L (0-55)
--- NOTE | 2020-09-01 08:07 | Progress Note - Cardiology ---
Cardiology SOAP Progress Note Subjective: Sitting up in bed C/O right groin discomfort No c/o CP, palpitations or SOB States she feels much better this morning Objective: I&O/Vital Signs 08/31/20 08/31/20 08/31/20 09/01/20 22:00 23:00 23:30 00:00 Pulse 82 111 84 81 Resp 27 38 23 20 B/P (MAP) 171/74 (102) 182/88 (119) 148/54 (85) 118/55 (76) Pulse Ox 94 95 94 93 O2 Delivery Room Air Room Air Room Air Room Air 09/01/20 09/01/20 09/01/20 09/01/20 00:00 00:12 01:00 01:00 Temp 37.0 Pulse 86 86 Resp 14 B/P (MAP) 141/79 (99) Pulse Ox 95 O2 Delivery Room Air Room Air 09/01/20 09/01/20 09/01/20 09/01/20 02:00 03:00 04:00 04:02 Pulse 68 64 63 Resp 21 21 20 B/P (MAP) 137/62 (91) 141/62 (95) 118/56 (80) Pulse Ox 94 95 94 O2 Delivery Room Air Room Air Room Air Room Air 09/01/20 09/01/20 09/01/20 09/01/20 04:03 05:00 06:00 06:47 Temp 36.9 Pulse 61 64 79 Resp 9 23 B/P (MAP) 146/64 (94) 145/58 (86) Pulse Ox 96 96 O2 Delivery Room Air Room Air 09/01/20 09/01/20 09/01/20 09/01/20 07:00 07:59 08:00 08:27 Temp 36.9 Pulse 71 85 Resp 19 20 B/P (MAP) 128/56 (80) 138/68 (91) Pulse Ox 96 95 O2 Delivery Room Air Room Air Room Air 09/01/20 00:00 Intake Total 1600 ml Output Total 1000 ml Balance 600 ml Weight (Pounds): 146 Weight (Ounces): 3.0 Weight (Calculated Kilograms): 66.465319 Side: left (right groin with brusing into the thigh; DP/PT pulses palpable;w/d/p) Groin site without hematoma: Yes Condition: DP/PT pulses palpable, extremity w/d/p Bruising: mild bruising Constitutional: AAO x 3, well-developed, well-nourished Respiratory: No accessory muscle use; other (Fair air entry, prolonged exp) Cardiovascular: regular rate-rhythm, S1 and S2, systolic murmur (soft NOE at card base) Gastrointestional: No tender; soft; No guarding, No rebound; audible bowel sounds Extremities: No clubbing, No cyanosis, No significant edema Neurologic/Psychiatric: oriented x 3, other (moves all limbs equally) Skin: normal color, warm/dry; No rash on exposed areas, No ulcerations on exposed areas Results/Procedures: Labs Laboratory Tests 08/31/20 10:24: White Blood Count 7.9, Red Blood Count 4.85, Hemoglobin 15.5, Hematocrit 46, Mean Corpuscular Volume 96, Mean Corpuscular Hemoglobin 32, Mean Corpuscular Hemoglobin Concent 34, Red Cell Distribution Width 13.9, Platelet Count 418H, Mean Platelet Volume 9.7, Immature Granulocyte % (Auto) 0, Neutrophils (%) (Auto) 72, Lymphocytes (%) (Auto) 42, Monocytes (%) (Auto) 7, Eosinophils (%) (Auto) 2, Basophils (%) (Auto) 1, Neutrophils # (Auto) 3.7, Lymphocytes # (Auto) 3.3, Monocytes # (Auto) 0.6, Eosinophils # (Auto) 0.2, Basophils # (Auto) 0.1, Immature Granulocyte # (Auto) 0.0, Prothrombin Time 12.7, INR Comment 0.9, Activated Partial Thromboplast Time 27, Sodium Level 139, Potassium Level 4.4, Chloride Level 102, Carbon Dioxide Level 25, Anion Gap 12, Blood Urea Nitrogen 12, Creatinine 0.76, Estimat Glomerular Filtration Rate > 60, BUN/Creatinine Ratio 16, Glucose Level 102, Calcium Level 10.0, Corrected Calcium , Magnesium Level 2.2, Total Bilirubin 0.3, Aspartate Amino Transf (AST/SGOT) 21, Alanine Aminotransferase (ALT/SGPT) 14, Alkaline Phosphatase 133, Troponin I 1.58*H, Pro-B-Type Natriuretic Peptide 1366.0H, Total Protein 8.7H, Albumin 4.6H, Lipase 59 08/31/20 16:22: White Blood Count 8.1, Red Blood Count 3.98, Hemoglobin 12.6, Hematocrit 38, Mean Corpuscular Volume 97, Mean Corpuscular Hemoglobin 32, Mean Corpuscular Hemoglobin Concent 33, Red Cell Distribution Width 14.1, Platelet Count 308, Mean Platelet Volume 9.9, Immature Granulocyte % (Auto) 0, Neutrophils (%) (Auto) 66, Lymphocytes (%) (Auto) 27, Monocytes (%) (Auto) 6, Eosinophils (%) (Auto) 1, Basophils (%) (Auto) 1, Neutrophils # (Auto) 5.3, Lymphocytes # (Auto) 2.2, Monocytes # (Auto) 0.5, Eosinophils # (Auto) 0.1, Basophils # (Auto) 0.1, Immature Granulocyte # (Auto) 0.0, Neutrophils % (Manual) 65, Lymphocytes % (Manual) 27, Monocytes % (Manual) 4, Eosinophils % (Manual) , Basophils % (Manual) 1, Metamyelocytes % 1, Band Neutrophils 1, Blast Cells 1, Hypochromasia SLIGHT, Anisocytosis SLIGHT 09/01/20 02:25: White Blood Count 7.3, Red Blood Count 3.58L, Hemoglobin 11.2L, Hematocrit 34L, Mean Corpuscular Volume 95, Mean Corpuscular Hemoglobin 31, Mean Corpuscular Hemoglobin Concent 33, Red Cell Distribution Width 14.1, Platelet Count 299, Mean Platelet Volume 10.1, Immature Granulocyte % (Auto) 0, Neutrophils (%) (Auto) 65, Lymphocytes (%) (Auto) 24, Monocytes (%) (Auto) 8, Eosinophils (%) (Auto) 2, Basophils (%) (Auto) 1, Neutrophils # (Auto) 4.7, Lymphocytes # (Auto) 1.7, Monocytes # (Auto) 0.6, Eosinophils # (Auto) 0.2, Basophils # (Auto) 0.1, Immature Granulocyte # (Auto) 0.0, Sodium Level 141, Potassium Level 3.9, Chloride Level 112#H, Carbon Dioxide Level 18L, Anion Gap 11, Blood Urea Nitrogen 13, Creatinine 0.77, Estimat Glomerular Filtration Rate > 60, BUN/Creatinine Ratio 17, Glucose Level 89, Calcium Level 8.6, Corrected Calcium 9.2, Magnesium Level 2.0, Total Bilirubin 0.4, Aspartate Amino Transf (AST/SGOT) 19, Alanine Aminotransferase (ALT/SGPT) 12, Alkaline Phosphatase 78, Total Protein 6.3L, Albumin 3.3, Phosphorus Level 3.7, Triglycerides Level 148, Cholesterol Level 232H, LDL Cholesterol Direct 178H, VLDL Cholesterol 30, HDL Cholesterol 44, Thyroid Stimulating Hormone (TSH) 3.93 Laboratory Tests 08/31/20 10:24 08/31/20 16:22 09/01/20 02:25 A/P: Assessment: Ac inf wall STEMI, treated with primary PCI on 08/31/20 (see below) CAD - h/o cor stent in [place] several years ago (she does not know details) - card cath of 08/31/20: cor calcium present, 60-70% mid-LAD, patent stents in prox portion of a dominant RCA, distal occlusion of RCA treated with Zuri 2.75 x 18 stent on 08/31/20, posterobasal & diaphragmatic akinesis, LVEF 40% PAD of which she does not know any details - observations at time of card cath of 08/31/20: kissing stents of ostial common iliacs, stent in R common and sup femoral (prevented sheath insertion) Chronic tobacco use (1 ppd) Vague h/o COPD Plan: * BB * Statin * DAPT * CHRISTOPHE-inhib * Monitor labs * Advised to quit smoking immediately and completely * Ambulate in halls today Clinical Quality Measures AMI/AHF: ASA po Prior to arrival: Yes (last night 81 mg) CHARLES SINGH Sep 01, 2020 08:07
[2020-09-01] MEDS: lisINopril 5 MG (PRINIVIL) TABLET PO SCH (08:21)
[2020-09-01] MEDS: CLOPIDOGREL 75 MG (PLAVIX) TABLET PO SCH (08:21)
[2020-09-01] MEDS: ASPIRIN 81 MG CHEW (CHILDREN'S ASA) PO SCH (08:21)
[2020-09-01] MEDS ORDERED: ATOR40TA PO (09:10)
[2020-09-01] MEDS ORDERED: MTP25TSR PO (09:10)
[2020-09-01] MEDS ORDERED: ASPI81TA64 PO (09:10)
[2020-09-01] MEDS ORDERED: LISI-729 PO (09:10)
[2020-09-01] MEDS ORDERED: CLOP75TA28 PO (09:10)
[2020-09-01] MEDS: NS IV 1000 ML 1,000 ML IV SCH (11:34)
--- NOTE | 2020-09-01 12:48 | Progress Note - Cardiology ---
Cardiology SOAP Progress Note Subjective: No cp or palp or syncope or leg discomfort Chronic, exertional shortness of breath, unchanged No focal weakness No n/v/d No swelling Objective: I&O/Vital Signs 09/01/20 09/01/20 09/01/20 09/01/20 01:00 01:00 02:00 03:00 Pulse 86 86 68 64 Resp 14 21 21 B/P (MAP) 141/79 (99) 137/62 (91) 141/62 (95) Pulse Ox 95 94 95 O2 Delivery Room Air Room Air Room Air 09/01/20 09/01/20 09/01/20 09/01/20 04:00 04:02 04:03 05:00 Temp 36.9 Pulse 63 61 Resp 20 9 B/P (MAP) 118/56 (80) 146/64 (94) Pulse Ox 94 96 O2 Delivery Room Air Room Air Room Air 09/01/20 09/01/20 09/01/20 09/01/20 06:00 06:47 07:00 07:59 Temp 36.9 Pulse 64 79 71 Resp 23 19 B/P (MAP) 145/58 (86) 128/56 (80) Pulse Ox 96 96 O2 Delivery Room Air Room Air 09/01/20 09/01/20 09/01/20 09/01/20 08:00 08:27 09:00 10:00 Pulse 85 85 82 Resp 20 11 24 B/P (MAP) 138/68 (91) 137/104 (115) 141/64 (89) Pulse Ox 95 97 O2 Delivery Room Air Room Air Room Air Room Air 09/01/20 09/01/20 12:00 12:18 Pulse 80 65 Resp 23 B/P (MAP) 131/46 (74) 131/46 (74) Pulse Ox 95 O2 Delivery Room Air Room Air 09/01/20 00:00 Intake Total 1600 ml Output Total 1000 ml Balance 600 ml Weight (Pounds): 146 Weight (Ounces): 3.0 Weight (Calculated Kilograms): 66.653110 Side: left (right groin with brusing into the thigh; DP/PT pulses palpable;w/d/p) Groin site without hematoma: Yes Condition: DP/PT pulses palpable, extremity w/d/p Bruising: mild bruising, moderated bruising (There is moderate bruisnt and swelling int he R groin, nothing significant on the right) Constitutional: AAO x 3, well-developed, well-nourished Respiratory: No accessory muscle use; other (Fair air entry, prolonged exp) Cardiovascular: regular rate-rhythm, S1 and S2, systolic murmur (soft NOE at card base) Gastrointestional: No tender; soft; No guarding, No rebound; audible bowel sounds Extremities: No clubbing, No cyanosis, No significant edema Neurologic/Psychiatric: oriented x 3, other (moves all limbs equally) Skin: normal color, warm/dry; No rash on exposed areas, No ulcerations on exposed areas Results/Procedures: Labs Laboratory Tests 08/31/20 16:22: White Blood Count 8.1, Red Blood Count 3.98, Hemoglobin 12.6, Hematocrit 38, Mean Corpuscular Volume 97, Mean Corpuscular Hemoglobin 32, Mean Corpuscular Hemoglobin Concent 33, Red Cell Distribution Width 14.1, Platelet Count 308, Mean Platelet Volume 9.9, Immature Granulocyte % (Auto) 0, Neutrophils (%) (Auto) 66, Lymphocytes (%) (Auto) 27, Monocytes (%) (Auto) 6, Eosinophils (%) (Auto) 1, Basophils (%) (Auto) 1, Neutrophils # (Auto) 5.3, Lymphocytes # (Auto) 2.2, Monocytes # (Auto) 0.5, Eosinophils # (Auto) 0.1, Basophils # (Auto) 0.1, Immature Granulocyte # (Auto) 0.0, Neutrophils % (Manual) 65, Lymphocytes % (Manual) 27, Monocytes % (Manual) 4, Eosinophils % (Manual) , Basophils % (Manual) 1, Metamyelocytes % 1, Band Neutrophils 1, Blast Cells 1, Hypochromasia SLIGHT, Anisocytosis SLIGHT 09/01/20 02:25: White Blood Count 7.3, Red Blood Count 3.58L, Hemoglobin 11.2L, Hematocrit 34L, Mean Corpuscular Volume 95, Mean Corpuscular Hemoglobin 31, Mean Corpuscular Hemoglobin Concent 33, Red Cell Distribution Width 14.1, Platelet Count 299, Mean Platelet Volume 10.1, Immature Granulocyte % (Auto) 0, Neutrophils (%) (Auto) 65, Lymphocytes (%) (Auto) 24, Monocytes (%) (Auto) 8, Eosinophils (%) (Auto) 2, Basophils (%) (Auto) 1, Neutrophils # (Auto) 4.7, Lymphocytes # (Auto) 1.7, Monocytes # (Auto) 0.6, Eosinophils # (Auto) 0.2, Basophils # (Auto) 0.1, Immature Granulocyte # (Auto) 0.0, Sodium Level 141, Potassium Level 3.9, Chloride Level 112#H, Carbon Dioxide Level 18L, Anion Gap 11, Blood Urea Nitrogen 13, Creatinine 0.77, Estimat Glomerular Filtration Rate > 60, BUN/Creatinine Ratio 17, Glucose Level 89, Calcium Level 8.6, Corrected Calcium 9.2, Phosphorus Level 3.7, Magnesium Level 2.0, Total Bilirubin 0.4, Aspartate Amino Transf (AST/SGOT) 19, Alanine Aminotransferase (ALT/SGPT) 12, Alkaline Phosphatase 78, Total Protein 6.3L, Albumin 3.3, Triglycerides Level 148, Cholesterol Level 232H, LDL Cholesterol Direct 178H, VLDL Cholesterol 30, HDL Cholesterol 44, Thyroid Stimulating Hormone (TSH) 3.93 Laboratory Tests 08/31/20 10:24 08/31/20 16:22 09/01/20 02:25 A/P: Assessment: R groin hematoma after failed sheath attempt on 08/31/20 Ac inf wall STEMI, treated with primary PCI on 08/31/20 (see below) CAD - h/o cor stent in [place] several years ago (she does not know details) - card cath of 08/31/20: cor calcium present, 60-70% mid-LAD, patent stents in prox portion of a dominant RCA, distal occlusion of RCA treated with Zuri 2.75 x 18 stent on 08/31/20, posterobasal & diaphragmatic akinesis, LVEF 40% PAD of which she does not know any details - observations at time of card cath of 08/31/20: kissing stents of ostial common iliacs, stent in R common and sup femoral (prevented sheath insertion) Chronic tobacco use (1 ppd) Vague h/o COPD Plan: * BB * Statin * DAPT * CHRISTOPHE-inhib * Monitor labs * Advised to quit smoking immediately and completely * Ambulate in halls today * Echo Clinical Quality Measures AMI/AHF: ASA po Prior to arrival: Yes (last night 81 mg) MARCELLA SUBRAMANIAN MD FACP FAC CCDS Sep 01, 2020 12:48
[2020-09-01] MEDS ORDERED: LORazepam 0.5 MG (ATIVAN) TABLET PO ONE (21:00)
[2020-09-02 04:50] LABS: BASOPHILS # (AUTO) 0.1 10^3/uL (0.0-0.1); BASOPHILS % (AUTO) 1 % (0-10); EOSINOPHILS # (AUTO) 0.3 10^3/uL (0.0-0.3); EOSINOPHILS % (AUTO) 4 % (0-10); HEMATOCRIT 30 % (35-52); HEMOGLOBIN 10.2 g/dL (11.5-16.0); LYMPHOCYTES % (AUTO) 28 % (12-44); MEAN CORPUSCULAR HEMOGLOBIN 32 pg (25-34); MEAN CORPUSCULAR HGB CONC 34 g/dL (32-36); MEAN CORPUSCULAR VOLUME 95 fL (80-99); MEAN PLATELET VOLUME 9.9 fL (9.0-12.2); MONOCYTES # (AUTO) 0.6 10^3/uL (0.0-1.0); MONOCYTES % (AUTO) 8 % (0-12); NEUTROPHILS # (AUTO) 4.2 10^3/uL (1.8-7.8); NEUTROPHILS % (AUTO) 60 % (42-75); PLATELET COUNT 260 10^3/uL (130-400); WHITE BLOOD COUNT 7.1 10^3/uL (4.3-11.0)
[2020-09-02 05:19] LABS: BUN/CREATININE RATIO 16; CALCIUM 8.6 MG/DL (8.5-10.1); CARBON DIOXIDE 21 MMOL/L (21-32); CHLORIDE 111 MMOL/L (98-107); CREATININE SERUM 0.76 MG/DL (0.60-1.30); GFR ESTIMATED > 60; GLUCOSE 86 MG/DL (70-105); PHOSPHORUS 3.4 MG/DL (2.3-4.7); POTASSIUM 3.7 MMOL/L (3.6-5.0); SODIUM 141 MMOL/L (135-145)
--- NOTE | 2020-09-02 08:23 | Progress Note - Cardiology ---
Cardiology SOAP Progress Note Subjective: Sitting up in bed eating morning meal States she feels back to normal today C/O mild to mod groin tenderness with ambulation, but states it is better No c/o CP, SOB, palpitations Objective: I&O/Vital Signs 09/01/20 09/01/20 09/02/20 09/02/20 21:00 23:50 01:00 04:36 Temp 37.0 37.0 Pulse 74 67 65 Resp 16 16 B/P (MAP) 143/73 (96) 136/65 (88) Pulse Ox 96 96 O2 Delivery Room Air Room Air Room Air 09/02/20 09/02/20 06:42 07:55 Temp 36.9 Pulse 70 84 Resp 16 B/P (MAP) 132/69 (90) Pulse Ox 98 O2 Delivery Room Air 09/02/20 00:00 Intake Total 490 ml Output Total 300 ml Balance 190 ml Weight (Pounds): 146 Weight (Ounces): 3.0 Weight (Calculated Kilograms): 66.411270 Side: left (right groin with brusing into the thigh; DP/PT pulses pa lpable;w/d/p) Groin site without hematoma: Yes Condition: DP/PT pulses palpable, extremity w/d/p Bruising: mild bruising, moderated bruising (There is moderate bruisnt and swelling int he R groin, nothing significant on the right) Constitutional: AAO x 3, well-developed, well-nourished Respiratory: No accessory muscle use; other (Fair air entry, prolonged exp) Cardiovascular: regular rate-rhythm, S1 and S2, systolic murmur (soft NOE at card base) Gastrointestional: No tender; soft; No guarding, No rebound; audible bowel sounds Extremities: No clubbing, No cyanosis, No significant edema Neurologic/Psychiatric: oriented x 3, other (moves all limbs equally) Skin: normal color, warm/dry; No rash on exposed areas, No ulcerations on exposed areas Results/Procedures: Labs Laboratory Tests 09/02/20 04:21: White Blood Count 7.1, Red Blood Count 3.21L, Hemoglobin 10.2L, Hematocrit 30L, Mean Corpuscular Volume 95, Mean Corpuscular Hemoglobin 32, Mean Corpuscular Hemoglobin Concent 34, Red Cell Distribution Width 13.9, Platelet Count 260, Mean Platelet Volume 9.9, Immature Granulocyte % (Auto) 0, Neutrophils (%) (Auto) 60, Lymphocytes (%) (Auto) 28, Monocytes (%) (Auto) 8, Eosinophils (%) (Auto) 4, Basophils (%) (Auto) 1, Neutrophils # (Auto) 4.2, Lymphocytes # (Auto) 2.0, Monocytes # (Auto) 0.6, Eosinophils # (Auto) 0.3, Basophils # (Auto) 0.1, Immature Granulocyte # (Auto) 0.0, Sodium Level 141, Potassium Level 3.7, Chloride Level 111H, Carbon Dioxide Level 21, Anion Gap 9, Blood Urea Nitrogen 12, Creatinine 0.76, Estimat Glomerular Filtration Rate > 60, BUN/Creatinine Ratio 16, Glucose Level 86, Calcium Level 8.6, Phosphorus Level 3.4, Magnesium Level 2.0 Microbiology 08/31/20 MRSA Screen - Final, Complete MRSA not isolated Laboratory Tests 08/31/20 10:24 08/31/20 16:22 09/01/20 02:25 09/02/20 04:21 A/P: Assessment: R groin hematoma after failed sheath attempt on 08/31/20 - resolved Ac inf wall STEMI, treated with primary PCI on 08/31/20 (see below) CAD - h/o cor stent in [place] several years ago (she does not know details) - card cath of 08/31/20: cor calcium present, 60-70% mid-LAD, patent stents in prox portion of a dominant RCA, distal occlusion of RCA treated with Zuri 2.75 x 18 stent on 08/31/20, posterobasal & diaphragmatic akinesis, LVEF 40% PAD of which she does not know any details - observations at time of card cath of 08/31/20: kissing stents of ostial common iliacs, stent in R common and sup femoral (prevented sheath insertion) Chronic tobacco use (1 ppd) Vague h/o COPD Plan: * Continue current dose of BB, Statin, DAPT, CHRISTOPHE-inhib * Monitor labs * Advised to quit smoking immediately and completely * Has been ambulating without difficulty * Echo - pending * Probable d/c home today with out pt f/u in 1-2 weeks Clinical Quality Measures AMI/AHF: ASA po Prior to arrival: Yes (last night 81 mg) BAIMA,CHARLES L WASHING MACHINE ASSEMBLER Sep 02, 2020 08:23
--- NOTE | 2020-09-02 08:24 | Discharge Inst-Cardiology ---
Discharge Inst-Cardiac Discharge Medications New Medications: Aspirin (Children's Aspirin) 81 Mg Tab.chew 81 MG PO DAILY, #60 TAB 3 Refills Atorvastatin Calcium (Lipitor) 40 Mg Tablet 40 MG PO HS, #90 TAB 3 Refills Clopidogrel Bisulfate (Clopidogrel) 75 Mg Tablet 75 MG PO DAILY, #90 TAB 3 Refills Lisinopril (Lisinopril) 5 Mg Tablet 5 MG PO DAILY, #90 TAB 3 Refills Metoprolol Succinate (Metoprolol Succinate) 25 Mg Tab.er.24h 25 MG PO DAILY, #90 TAB 3 Refills Continued Medications: Melatonin (Melatonin) 3 Mg Tablet 3 MG PO HS, TAB Discontinued Medications: Aspirin (Aspir 81) 81 Mg Tablet. 81 MG PO HS, TAB New, Converted or Re-Newed RX: Transmitted to Pharmacy Patient Instructions Patient Instructions: Martin schedule follow up appointment to see Dr. Ward in 1-2 weeks CHARLES SINGH Sep 02, 2020 08:24
[2020-09-02] MEDS: lisINopril 5 MG (PRINIVIL) TABLET PO SCH (08:51)
[2020-09-02] MEDS: ASPIRIN 81 MG CHEW (CHILDREN'S ASA) PO SCH (08:51)
[2020-09-02] MEDS: CLOPIDOGREL 75 MG (PLAVIX) TABLET PO SCH (08:51)
[2020-09-02 11:31] VITALS: BP 132/69
--- NOTE | 2020-09-02 11:31 | Progress Note - Cardiology ---
Cardiology SOAP Progress Note Subjective: No cp or palp or syncope or shortness of breath No leg or groin discomfort No difficulty walking No n/v/d Objective: I&O/Vital Signs 09/01/20 09/02/20 09/02/20 09/02/20 23:50 01:00 04:36 06:42 Temp 37.0 37.0 Pulse 74 67 65 70 Resp 16 16 B/P (MAP) 143/73 (96) 136/65 (88) Pulse Ox 96 96 O2 Delivery Room Air Room Air 09/02/20 09/02/20 07:55 09:14 Temp 36.9 Pulse 84 Resp 16 B/P (MAP) 132/69 (90) Pulse Ox 98 O2 Delivery Room Air Room Air 09/02/20 00:00 Intake Total 490 ml Output Total 300 ml Balance 190 ml Weight (Pounds): 146 Weight (Ounces): 3.0 Weight (Calculated Kilograms): 66.602732 Side: left (right groin with brusing into the thigh; DP/PT pulses palpable;w/d/p) Groin site without hematoma: Yes Condition: DP/PT pulses palpable, extremity w/d/p Bruising: moderated bruising (There is moderate bruisnt and swelling int he R groin, nothing significant on the right) Constitutional: AAO x 3, well-developed, well-nourished Respiratory: No accessory muscle use; other (Fair air entry, prolonged exp) Cardiovascular: regular rate-rhythm, S1 and S2, systolic murmur (soft NOE at card base) Gastrointestional: No tender; soft; No guarding, No rebound; audible bowel sounds Extremities: No clubbing, No cyanosis, No significant edema Neurologic/Psychiatric: oriented x 3, other (moves all limbs equally) Skin: normal color, warm/dry; No rash on exposed areas, No ulcerations on exposed areas Results/Procedures: Labs Laboratory Tests 09/02/20 04:21: White Blood Count 7.1, Red Blood Count 3.21L, Hemoglobin 10.2L, Hematocrit 30L, Mean Corpuscular Volume 95, Mean Corpuscular Hemoglobin 32, Mean Corpuscular Hemoglobin Concent 34, Red Cell Distribution Width 13.9, Platelet Count 260, Mean Platelet Volume 9.9, Immature Granulocyte % (Auto) 0, Neutrophils (%) (Auto) 60, Lymphocytes (%) (Auto) 28, Monocytes (%) (Auto) 8, Eosinophils (%) (Auto) 4, Basophils (%) (Auto) 1, Neutrophils # (Auto) 4.2, Lymphocytes # (Auto) 2.0, Monocytes # (Auto) 0.6, Eosinophils # (Auto) 0.3, Basophils # (Auto) 0.1, Immature Granulocyte # (Auto) 0.0, Sodium Level 141, Potassium Level 3.7, Chloride Level 111H, Carbon Dioxide Level 21, Anion Gap 9, Blood Urea Nitrogen 12, Creatinine 0.76, Estimat Glomerular Filtration Rate > 60, BUN/Creatinine Ratio 16, Glucose Level 86, Calcium Level 8.6, Phosphorus Level 3.4, Magnesium Level 2.0 Microbiology 08/31/20 MRSA Screen - Final, Complete MRSA not isolated Laboratory Tests 08/31/20 16:22 09/01/20 02:25 09/02/20 04:21 A/P: Assessment: R groin hematoma after failed sheath attempt on 08/31/20 - resolved Ac inf wall STEMI, treated with primary PCI on 08/31/20 (see below) CAD - h/o cor stent in [place] several years ago (she does not know details) - card cath of 08/31/20: cor calcium present, 60-70% mid-LAD, patent stents in prox portion of a dominant RCA, distal occlusion of RCA treated with Zuri 2.75 x 18 stent on 08/31/20, posterobasal & diaphragmatic akinesis, LVEF 40% - echo of 09/01/20 (to f/u on ischemic cardiomyopathy seen at card cath): LVEF 50- 55%, improved motion of inf wall, PASP 20-25% PAD of which she does not know any details - observations at time of card cath of 08/31/20: kissing stents of ostial common iliacs, stent in R common and sup femoral (prevented sheath insertion) Chronic tobacco use (1 ppd) Vague h/o COPD Plan: * Continue current dose of BB, Statin, DAPT, CHRISTOPHE-inhib * Advised compliance with meds, in particular her antiplatelet therapy * Advised to quit smoking immediately and completely * Has been ambulating without difficulty * Echo - pending * Probable d/c home today with out pt f/u in 1-2 weeks Clinical Quality Measures AMI/AHF: ASA po Prior to arrival: Yes (last night 81 mg) MARCELLA SUBRAMANIAN MD FACP FAC CCDS Sep 02, 2020 11:31
--- NOTE | 2020-09-02 11:32 | Cardiology Discharge Summary ---
Diagnosis/Chief Complaint Date of Admission Aug 31, 2020 at 13:41 Date of Discharge Admission Diagnosis 09/02/20 Final/Discharge Diagnosis R groin hematoma after failed sheath attempt on 08/31/20 - resolved Ac inf wall STEMI, treated with primary PCI on 08/31/20 (see below) CAD - h/o cor stent in [place] several years ago (she does not know details) - card cath of 08/31/20: cor calcium present, 60-70% mid-LAD, patent stents in prox portion of a dominant RCA, distal occlusion of RCA treated with Zuri 2.75 x 18 stent on 08/31/20, posterobasal & diaphragmatic akinesis, LVEF 40% - echo of 09/01/20 (to f/u on ischemic cardiomyopathy seen at card cath): LVEF 50- 55%, improved motion of inf wall, PASP 20-25% PAD of which she does not know any details - observations at time of card cath of 08/31/20: kissing stents of ostial common iliacs, stent in R common and sup femoral (prevented sheath insertion) Chronic tobacco use (1 ppd) Vague h/o COPD Chief Complaint/HPI Chief Complaint/HPI CC: Chest discomfort HPI: 70 woman who presented to [facility] ER with one day of waxing and waning chest discomfort, worse today, mid sternal, radiating to shoulders, w/o any associated symptoms, mild to moderately severe, w/o aggravating or relieving factors, not experience before. Initially, ECG showed T wave changes and later there was mild ST elevation in inferior lead noted by the ER physician at [facility] who then called us and the patient was transferred to the label folder here after her consent for card cath and possible ad hoc cor intervention. No n/v/d. Urgent card cath and cor intervention undertaken (see below) and she is currently feeling well. For condition at discharge, please today's progress note. Discharge Summary Hospital Course Pending Labs Laboratory Tests 09/02/20 04:21: White Blood Count 7.1, Red Blood Count 3.21, Hemoglobin 10.2, Hematocrit 30, Mean Corpuscular Volume 95, Mean Corpuscular Hemoglobin 32, Mean Corpuscular Hemoglobin Concent 34, Red Cell Distribution Width 13.9, Platelet Count 260, Mean Platelet Volume 9.9, Immature Granulocyte % (Auto) 0, Neutrophils (%) (Auto) 60, Lymphocytes (%) (Auto) 28, Monocytes (%) (Auto) 8, Eosinophils (%) (Auto) 4, Basophils (%) (Auto) 1, Neutrophils # (Auto) 4.2, Lymphocytes # (Auto) 2.0, Monocytes # (Auto) 0.6, Eosinophils # (Auto) 0.3, Basophils # (Auto) 0.1, Immature Granulocyte # (Auto) 0.0, Sodium Level 141, Potassium Level 3.7, Chloride Level 111, Carbon Dioxide Level 21, Anion Gap 9, Blood Urea Nitrogen 12, Creatinine 0.76, Estimat Glomerular Filtration Rate > 60, BUN/Creatinine Ratio 16, Glucose Level 86, Calcium Level 8.6, Phosphorus Level 3.4, Magnesium Level 2.0 Discussion & Recommendations Home Medications Reviewed patient Home Medication Reconciliation performed by pharmacy medication reconciliations missile and missile checkout technician and/or nursing. Patients Allergies have been reviewed. Discharge Home Medications: Reviewed and agree with Discharge Medication list on patient's Discharge Instruction sheet Clinical Quality Measures AMI/AHF: ASA po Prior to arrival: Yes (last night 81 mg) MARCELLA SUBRAMANIAN MD FACP FACC CCDS Sep 02, 2020 11:32
--- NOTE | 2020-09-02 14:12 | Physician Query Clarification ---
Physician Query-General Query to Physician: The medical record reflects the following clinical evidence: Clinical Indicators: Pro BNP 1366, Echo report showing Grade I diastolic dysfunction, with "normal" systolic function Risk Factor(s): HTN, CAD Treatment: Heart cath with Stent placement, Lisinopril, NTG, Metoprolol 1. Acute diastolic (congestive) heart failure 2. Unspecified diastolic (congestive) heart failure 3. Other explanation of clinical findings 4. Unable to determine (no explanation for clinical findings) Please clarify and document your clinical opinion in the progress notes and discharge summary including the definitive and/or presumptive diagnosis, (suspected or probable), related to the above clinical findings. Please include clinical findings supporting your diagnosis. Josseline Gonzalez MSN, RN [phone] [email or web address] PHYSICIAN RESPONSE: Based on the clinical findings in the record, please respond to the query above on this document as an addendum. Physician Response: Physician Response Acute systolic and diastolic CHF. LVEF 40% at time of card cath and cor intervention, improved subsequently If you have questions please contact: Orthotist: Ext: Thank you for your time and cooperation. Clinical Abrasive Wheel Molder/Orthotist This is a permanent part of the medical record JOSSELINE GONZALEZ Sep 02, 2020 14:12 MARCELLA SUBRAMANIAN MD [facility] Sep 05, 2020 16:15
== END 2020-09-02 11:30 | disposition home or self-care (01) | DRG 246 ==
LOC: EDUNIT# 10:17 → ER FS 10:19 → CATH 11:29 → ICU 13:41 → OBSVTOIN 13:41 → CSD 09-01 16:18
PROVIDERS: ADMIT Internal Medicine Cardiovascular Disease; ATTEND Internal Medicine Cardiovascular Disease
PROC: 027034Z Dilation of Coronary Artery, One Artery with Drug-eluting Intraluminal Device, Percutaneous Approach (ICD-10-PCS; principal; 2020-08-31)
PROC: 4A023N7 Measurement of Cardiac Sampling and Pressure, Left Heart, Percutaneous Approach (ICD-10-PCS; 2020-08-31)
PROC: B2111ZZ Fluoroscopy of Multiple Coronary Arteries using Low Osmolar Contrast (ICD-10-PCS; 2020-08-31)
PROC: B2151ZZ Fluoroscopy of Left Heart using Low Osmolar Contrast (ICD-10-PCS; 2020-08-31)
DX: I21.19 ST elevation (STEMI) myocardial infarction involving other coronary artery of inferior wall (principal); I50.41 Acute combined systolic (congestive) and diastolic (congestive) heart failure; I97.630 Postprocedural hematoma of a circulatory system organ or structure following a cardiac catheterization; I11.0 Hypertensive heart disease with heart failure; I25.10 Atherosclerotic heart disease of native coronary artery without angina pectoris; J44.9 Chronic obstructive pulmonary disease, unspecified; F17.210 Nicotine dependence, cigarettes, uncomplicated; E78.00 Pure hypercholesterolemia, unspecified; I73.9 Peripheral vascular disease, unspecified; I25.2 Old myocardial infarction; Z95.820 Peripheral vascular angioplasty status with implants and grafts; Z95.5 Presence of coronary angioplasty implant and graft; Z87.01 Personal history of pneumonia (recurrent); Z79.82 Long term (current) use of aspirin
CPT/HCPCS: 36415; 70450; 71045; 80048; 80053; 80061; 83690; 83735; 83880; 84100; 84443; 84484; 85007; 85025; 85027; 85610; 85730; 86850; 86900; 86901; 86920; 87081; 93005; 93041; 93306; 93458

== ENCOUNTER 2020-09-23 08:00 | Day surgery (SDC) | payer MEDICARE ==
[~2020-09-23] VITALS: Ht 165 cm; Wt 62.0 kg
[2020-09-23] VITALS (11 sets, daily range): BP systolic 109–172; BP diastolic 50–71
[2020-09-23 07:48] LABS: HEMATOCRIT 39 % (35-52); HEMOGLOBIN 12.7 g/dL (11.5-16.0); MEAN CORPUSCULAR HEMOGLOBIN 32 pg (25-34); MEAN CORPUSCULAR HGB CONC 33 g/dL (32-36); MEAN CORPUSCULAR VOLUME 99 fL (80-99); MEAN PLATELET VOLUME 9.7 fL (9.0-12.2); PLATELET COUNT 379 10^3/uL (130-400); WHITE BLOOD COUNT 7.1 10^3/uL (4.3-11.0)
[~2020-09-23 08:00] MED LIST changes: +ASPI81TA64 PO; +ATOR40TA PO; +CLOP75TA28 PO; +LISI-729 PO; +MTP25TSR PO; +NS IV 1000 ML 1,000 ML IV SCH
[2020-09-23] MEDS ORDERED: fentaNYL INJ 100 MCG/2 ML AMP ONE (08:05)
[2020-09-23] MEDS ORDERED: MIDAZOLAM 5 MG/5 ML (VERSED) VIAL ONE (08:05)
[2020-09-23 08:07] LABS: INR 1.1 (0.8-1.4); PROTHROMBIN TIME PATIENT 14.2 SEC (12.2-14.7)
[2020-09-23 08:12] LABS: BILIRUBIN,TOTAL 0.5 MG/DL (0.1-1.0); BUN/CREATININE RATIO 14; CALCIUM 9.5 MG/DL (8.5-10.1); CARBON DIOXIDE 23 MMOL/L (21-32); CHLORIDE 107 MMOL/L (98-107); CREATININE SERUM 0.84 MG/DL (0.60-1.30); GFR ESTIMATED > 60; GLUCOSE 87 MG/DL (70-105); POTASSIUM 4.2 MMOL/L (3.6-5.0); SODIUM 140 MMOL/L (135-145)
[2020-09-23 08:13] LABS: ALANINE AMINOTRANSFERASE 18 U/L (0-55); ALKALINE PHOSPHATASE 121 U/L (40-136); CHOLESTEROL 209 MG/DL (< 200); HDL CHOLESTEROL 48 MG/DL (40-60); TOTAL PROTEIN 7.7 GM/DL (6.4-8.2); TRIGLYCERIDES 150 MG/DL (<150); VLDL CHOLESTEROL 30 MG/DL (5-40)
[2020-09-23] MEDS ORDERED: HEParin 1000 UNIT/ML (10ML VIAL) FOR BOLUS ONE (09:06)
[2020-09-23] MEDS ORDERED: CLOPIDOGREL 300 MG (PLAVIX) TABLET PO ONE (09:44)
--- NOTE | 2020-09-23 10:30 | Cardiac Procedure Note-CS/ASA ---
Pre-Procedure Note Pre-Op Procedure Note H&P Reviewed The H&P was reviewed, patient examined and no changes noted. Date H&P Reviewed: Sep 23, 2020 Time H&P Reviewed: 08:45 Conscious Sedation Pre-Proced Time 08:45 ASA Score 3 For ASA 3 and 4: Consider anesthesia and medical clearance. Also, for patients with a history of failed moderate sedation consider anesthesia. Airway Lungs Heart ASA score ASA 1: a normal healthy patient ASA 2: a patient with a mild systemic disease (mid diabetes, controlled hypertension, obesity ASA 3: a patient with a severe systemic disease that limits activity (angina, COPD, prior Myocardial infarction) ASA 4: a patient with an incapacitating disease that is a constant threat to life (CHF, renal failure) ASA 5: a moribund patient not expected to survive 24 hrs. (ruptured aneurysm) ASA 6: a declared brain- patient whose organs are being harvested. For emergent operations, add the letter E after the classification Mallampati Classification Grade 1 Sedation Plan Analgesia, Amnesia, Plan communicated to team members, Discussed options with patient/fam, Discussed risks with patient/fam The patient is an appropriate candidate to undergo the planned procedure, sedation, and anesthesia. The patient immediately re-assessed prior to indication. MARCELLA SUBRAMANIAN MD FACP FAC CCDS Sep 23, 2020 10:29
--- NOTE | 2020-09-23 10:36 | Discharge Inst-Cardiology ---
Discharge Inst-Cardiac Discharge Medications Continued Medications: Aspirin (Children's Aspirin) 81 Mg Tab.chew 81 MG PO DAILY, #60 TAB 3 Refills Atorvastatin Calcium (Lipitor) 40 Mg Tablet 40 MG PO HS, #90 TAB 3 Refills Clopidogrel Bisulfate (Clopidogrel) 75 Mg Tablet 75 MG PO DAILY, #90 TAB 3 Refills Lisinopril (Lisinopril) 5 Mg Tablet 5 MG PO DAILY, #90 TAB 3 Refills Melatonin (Melatonin) 3 Mg Tablet 3 MG PO HS, TAB Metoprolol Succinate (Metoprolol Succinate) 25 Mg Tab.er.24h 25 MG PO DAILY, #90 TAB 3 Refills MARCELLA SUBRAMANIAN MD FACP [facility]S Sep 23, 2020 10:36
--- NOTE | 2020-09-23 10:37 | Discharge Inst-Post CATH ---
Discharge Inst-CATH/EP Post Cardiac Cath/EP D/C Inst Follow Up/[facility] F/u with Dr Ward in 3-4 weeks No smoking Please be compliant with all medications ACTIVITY * Go Home directly and rest. * Limit activity of the leg (or wrist if it was used) for 7 days including aerobics, swimming, jogging, bicycling, etc. * Restrict stair-climbing for 7 days if possible, if not, climb up with your non-cath leg, then bring together on the same step. * Avoid lifting, pushing, pulling or excessive movement of the affected extremity for 7 days. * Customary sexual activity may be resumed after 2 days-use caution not to use a position that strains or causes pain to the affected extremity. * No driving for 24 hours. * NO SMOKING. * Avoid straining for bowel movements for 7 days. * Gentle walking on level ground is allowed. * Returning to work will depend on the type of procedure and the results. Your doctor will discuss this with you. CALL YOUR DOCTOR FOR ANY OF THE FOLLOWING: *If bleeding from the puncture site occurs- Apply gentle pressure to site with clean cloth and call your doctor or EMS. * If a knot or lump forms under the skin, increases in size, or causes pain. * If bruising appears to be worsening or moving further down your leg instead of disappearing. * Temperature above 101 F. CARE OF YOUR GROIN INCISION; * Bruising or purple discoloration of the skin near the puncture site is common. * You may shower only, no bathtub bathing for 5 days. Be careful to avoid slipping as your leg may feel stiff. * If a closure device was used on your femoral artery, please see the attached guide regarding care of the device and your leg. * Leave dressing on FOR 24 hours. CARE OF YOUR WRIST INCISION; * Bruising or purple discoloration of the skin near the puncture site is common. * You may shower. * DO NOT submerge wrist. * Leave dressing on FOR 24 hours. MARCELLA WARD MD [facility] CCDS Sep 23, 2020 10:37
[2020-09-23] MEDS ORDERED: NS IV 1000 ML 1,000 ML IV SCH (10:45)
[2020-09-23] MEDS ORDERED: PATIENT MAY USE OWN MEDS, ALL PO SCH (10:45)
--- NOTE | 2020-09-23 13:44 | OPERATIVE REPORT ---
DATE OF SERVICE: PERIPHERAL ANGIOGRAPHY The patient is a 70-year-old lady who is known to have peripheral vascular disease and has previously had stenting of the common iliac arteries on both sides and stenting of the right superficial femoral artery by Dr. Qureshi at the [facility] in [place], [place]. She has recently been experiencing claudication of the right leg. Informed consent was obtained for peripheral angiography and possible ad hoc intervention. DESCRIPTION OF PROCEDURE: She was brought to the cardiac catheterization laboratory. The left groin was prepared and draped in the usual sterile fashion. Lidocaine 1% was used as local anesthesia. Modified Seldinger technique was used to advance a 5-Azerbaijani sheath in right femoral artery. A 5-Azerbaijani pigtail catheter was used to carry out abdominal aortic angiography with the catheter placed at the level of L1. The pigtail catheter was then pulled back to the level just above aortoiliac bifurcation and bilateral leg artery angiography was performed with runoff down to the level of the ankles. Subsequently, we also performed selective angiography of the right common femoral artery. We used a crossover catheter to advance a Storq wire into the right common femoral artery and then exchanged the catheter for a straight catheter and angiography was performed. We tried various wires to try and get across the complete occlusion in the right superficial femoral artery (which extends from the ostium down to the distal part of this vessel). We were not able to cross the complete occlusion. The wires were removed and the catheter was also removed. We performed angiography of the left femoral artery through the sheath and Mynx was used to achieve hemostasis. She tolerated the procedure well. ABDOMINAL AORTIC ANGIOGRAPHY: Abdominal aortic angiography indicated considerable atherosclerotic disease of the infrarenal abdominal aorta with stenosis of up to approximately 50%. There is considerable plaque formation. There does not appear to be any aneurysm. Renal arteries identified and no significant stenosis seen. BILATERAL LEG ARTERY ANGIOGRAPHY: There are patent kissing stents in the common iliac arteries on both sides. The right iliofemoral system exhibits moderate plaque. The right superficial femoral artery is occluded at its ostium. A stent is seen in the right superficial femoral artery extending from the ostium to the mid vessel but is occluded. The occlusion extends beyond the distal edge of the stent. The distal part of the right superficial femoral artery reconstitutes via collaterals from the deep femoral system. There appears to be a 3-vessel runoff. On the left side, there appears to be a 70% stenosis in the left external iliac artery. The left common femoral, superficial femoral, deep femoral are intact. There is a 3-vessel runoff in the left leg. CONCLUSIONS: 1. Moderate atherosclerosis and stenosis of the infrarenal abdominal aorta. 2. Patent kissing stents in the common iliac arteries. 3. 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 3. A 70% stenosis of the left external iliac artery. DISCUSSION AND RECOMMENDATIONS: We attempted intervention to the occlusion in the right superficial femoral artery, but we were unsuccessful. We are making a referral to Dr. Oscar Qureshi of cardiovascular surgery at [place], [place] for further evaluation and treatment. We advised the patient to quit smoking immediately and completely and to be compliant with medications, including antiplatelet therapy. Job ID: [id number] DocumentID: [id number] Dictated Date: 09/23/2020 11:14:04 Cardiac Cath Lab Technologist Date: 09/23/2020 13:43:37 Dictated By: MARCELLA SUBRAMANIAN MD, MA, FACP, FACC, MTDD
== END 2020-09-23 13:35 | disposition home or self-care (01) ==
LOC: CATH 08:00
PROVIDERS: ATTEND Internal Medicine Cardiovascular Disease
DX: I70.211 Atherosclerosis of native arteries of extremities with intermittent claudication, right leg (principal); I70.0 Atherosclerosis of aorta; I25.10 Atherosclerotic heart disease of native coronary artery without angina pectoris; I25.2 Old myocardial infarction; J44.9 Chronic obstructive pulmonary disease, unspecified; E78.2 Mixed hyperlipidemia; F17.210 Nicotine dependence, cigarettes, uncomplicated; Z95.820 Peripheral vascular angioplasty status with implants and grafts; Z79.82 Long term (current) use of aspirin; Z79.899 Other long term (current) drug therapy; Z79.02 Long term (current) use of antithrombotics/antiplatelets
CPT/HCPCS: 36247; 75625; 75716; 80053; 80061; 85027; 85610; 85730; 87081; C1760; C1769 ×4; C1887 ×3; C1894; 36415

== ENCOUNTER 2021-03-10 10:57 | Observation (INO) | payer MEDICARE ==
[~2021-03-10] VITALS: Ht 165.1 cm; Wt 36.3 kg
[~2021-03-10 10:57] MED LIST changes: -CLIN150C18 PO; +CLIN150C20 PO; -LISI-729 PO; +LISI5TAB20 PO; -NS IV 1000 ML 1,000 ML IV SCH
--- NOTE | 2021-03-10 11:20 | ED Chest Pain ---
General Stated Complaint: CP, Source: patient Exam Limitations: no limitations History of Present Illness Date Seen by Provider: Mar 10, 2021 Time Seen by Provider: 11:06 Initial Comments This is a well-appearing 71-year-old female who presented to the ER via POV with complaints of intermittent burning chest pain for the past week. States that she was seen at [facility] yesterday and kept overnight due to inability of hospital to secure transfer. States that while she was there she was given aspirin, Nitropaste which did relieve her symptoms. However, she was "tired of waiting" for facility to secure transfer and decided to drive POV to this emergency department. She does have significant cardiac history which includes coronary artery disease, hypertension, and prior [place]. In August 2020 she had a coronary stent placed by Dr. Ward to her distal right coronary artery, proximal and mid right coronary artery had patent stents. Her left anterior descending artery has 60-70% stenosis in its mid portion that was not intervened at that time. States that [facility] removed her nitro paste prior to her leaving AGAINST MEDICAL ADVICE. She currently denies any pain at this time. Denies fever, chills, cough, shortness of breath, nausea, vomiting, abdominal pain. Did not receive COVID vaccine. Allergies and Home Medications Allergies Coded Allergies: No Known Drug Allergies (Unverified , 02/16/18) Patient Home Medication List Home Medication List Reviewed: Yes Aspirin (Children's Aspirin) 81 Mg Tab.chew, 81 MG PO DAILY Prescribed by: CHARLES SINGH on 09/01/20909 Atorvastatin Calcium (Lipitor) 40 Mg Tablet, 40 MG PO HS Prescribed by: CHARLES SINGH on 09/01/20909 Clopidogrel Bisulfate (Clopidogrel) 75 Mg Tablet, 75 MG PO DAILY Prescribed by: CHARLES SINGH on 09/01/20909 Lisinopril (Lisinopril) 5 Mg Tablet, 5 MG PO DAILY Prescribed by: CHARLES SINGH on 09/01/20909 Melatonin (Melatonin) 3 Mg Tablet, 3 MG PO HS, (Reported) Entered as Reported by: YESI MCGREGOR on 02/13/18 0855 Metoprolol Succinate (Metoprolol Succinate) 25 Mg Tab.er.24h, 25 MG PO DAILY Prescribed by: CHARLES SINGH on 09/01/20909 Review of Systems Review of Systems Constitutional: no symptoms reported EENTM: No Symptoms Reported Respiratory: No Symptoms Reported Cardiovascular: See HPI Gastrointestinal: No Symptoms Reported Genitourinary: No Symptoms Reported Musculoskeletal: no symptoms reported Skin: no symptoms reported Psychiatric/Neurological: No Symptoms Reported Endocrine: No Symptoms Reported Hematologic/Lymphatic: No Symptoms Reported Past Npzgzsh-Bycmdp-Rgmkin Hx Immunizations Up To Date Tetanus Booster (TDap): Unknown PED Vaccines UTD: No Seasonal Allergies Seasonal Allergies: No Past Medical History Surgeries: Yes (Stents x 1) Coronary Stent Respiratory: Yes Pneumonia, COPD Currently Using CPAP: No Currently Using BIPAP: No Cardiac: Yes Heart Attack, High Cholesterol, Hypertension Neurological: No Female Reproductive Disorders: Denies [employer]OUND [employer] History: Menopausal Sexually Transmitted Disease: No HIV/AIDS: No Genitourinary: No Bladder Infection Gastrointestinal: No Musculoskeletal: No Endocrine: No HEENT: No Cancer: No Did You Recieve Any Treatments: No Psychosocial: No Integumentary: Yes (Compulsive skin picking, cellulitis) Blood Disorders: No Family Medical History No Pertinent Family Hx Physical Exam Vital Signs Vital Signs - First Documented 03/10/21 11:02 Pulse 60 Resp 19 B/P (MAP) 157/73 (101) Pulse Ox 96 O2 Delivery Room Air Capillary Refill : Height, Weight, BMI Height: 5'6.00" Weight: 146lbs. 3.0oz. 66.320509cr; 22.77 BMI Method:Stated General Appearance: No Apparent Distress, WD/WN HEENT: TMs Normal, Pharynx Normal, Moist Mucous Membranes Neck: Full Range of Motion, Normal Inspection, Non Tender, Supple Respiratory: Lungs Clear, Normal Breath Sounds, No Accessory Muscle Use, No Respiratory Distress Cardiovascular: Regular Rate, Rhythm, No Edema, No Murmur Gastrointestinal: Normal Bowel Sounds, No Organomegaly, Non Tender, Soft Rectal: Deferred Extremity: Normal Inspection, Normal Range of Motion Neurologic/Psychiatric: Alert, Oriented x3, No Motor/Sensory Deficits, Normal Mood/Affect Skin: Normal Color, Warm/Dry Progress/Results/Core Measures Results/Orders Lab Results Laboratory Tests Test 03/10/21 11:12 Range/Units White Blood Count 7.9 4.3-11.0 10^3/uL Red Blood Count 3.94 3.80-5.11 10^6/uL Hemoglobin 12.4 11.5-16.0 g/dL Hematocrit 38 35-52 % Mean Corpuscular Volume 96 80-99 fL Mean Corpuscular Hemoglobin 32 25-34 pg Mean Corpuscular Hemoglobin Concent 33 32-36 g/dL Red Cell Distribution Width 13.7 10.0-14.5 % Platelet Count 383 130-400 10^3/uL Mean Platelet Volume 9.9 9.0-12.2 fL Immature Granulocyte % (Auto) 0 % Neutrophils (%) (Auto) 60 42-75 % Lymphocytes (%) (Auto) 29 12-44 % Monocytes (%) (Auto) 6 0-12 % Eosinophils (%) (Auto) 3 0-10 % Basophils (%) (Auto) 1 0-10 % Neutrophils # (Auto) 4.8 1.8-7.8 10^3/uL Lymphocytes # (Auto) 2.3 1.0-4.0 10^3/uL Monocytes # (Auto) 0.5 0.0-1.0 10^3/uL Eosinophils # (Auto) 0.2 0.0-0.3 10^3/uL Basophils # (Auto) 0.1 0.0-0.1 10^3/uL Immature Granulocyte # (Auto) 0.0 0.0-0.1 10^3/uL Prothrombin Time 14.4 12.2-14.7 SEC INR Comment 1.1 0.8-1.4 Activated Partial Thromboplast Time 42 H 24-35 SEC D-Dimer 1.49 H 0.00-0.49 UG/ML Sodium Level 141 135-145 MMOL/L Potassium Level 3.6 3.6-5.0 MMOL/L Chloride Level 107 98-107 MMOL/L Carbon Dioxide Level 25 21-32 MMOL/L Anion Gap 9 5-14 MMOL/L Blood Urea Nitrogen 15 7-18 MG/DL Creatinine 0.98 0.60-1.30 MG/DL Estimat Glomerular Filtration Rate 56 BUN/Creatinine Ratio 15 Glucose Level 103 70-105 MG/DL Calcium Level 9.4 8.5-10.1 MG/DL Corrected Calcium 9.5 8.5-10.1 MG/DL Magnesium Level 2.2 1.6-2.4 MG/DL Total Bilirubin 0.6 0.1-1.0 MG/DL Aspartate Amino Transf (AST/SGOT) 17 5-34 U/L Alanine Aminotransferase (ALT/SGPT) 17 0-55 U/L Alkaline Phosphatase 134 40-136 U/L Creatine Kinase MB 3.4 <6.6 NG/ML Myoglobin 58.1 10.0-92.0 NG/ML Troponin I 0.169 H <0.028 NG/ML B-Type Natriuretic Peptide 254.1 H <100.0 PG/ML Total Protein 7.3 6.4-8.2 GM/DL Albumin 3.9 3.2-4.5 GM/DL Lipase 55 8-78 U/L My Orders Orders - USHA HENLEY GRAPPLE SKIDDER OPERATOR Cbc With Automated Diff (03/10/21 11:14) Magnesium (03/10/21 11:14) Chest 1 View, Ap/Pa Only (03/10/21 11:14) Ekg Tracing (03/10/21 11:14) Comprehensive Metabolic Panel (03/10/21 11:14) Myoglobin Serum (03/10/21 11:14) Protime With Inr (03/10/21 11:14) Partial Thromboplastin Time (03/10/21 11:14) O2 (03/10/21 11:14) Monitor-Rhythm Ecg Trace Only (03/10/21 11:14) Ed Iv/Invasive Line Start (03/10/21 11:14) Creatine Kinase Mb (03/10/21 11:14) Lipase (03/10/21 11:14) Bnp Hussein (03/10/21 11:14) Fibrin Degradation Products (03/10/21 11:14) Troponin I [place] (03/10/21 11:14) Vital Signs/I&O 03/10/21 11:02 Pulse 60 Resp 19 B/P (MAP) 157/73 (101) Pulse Ox 96 O2 Delivery Room Air Progress Progress Note #1: Progress Note Patient examined and in no acute distress. Initiated cardiac work-up. 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 Ward after obtaining labs and imaging. Progress Note #2: Time: 12:07 Progress Note Reviewed case with Dr. Ward, requested patient be admitted to hospitalist with cardiology consult. Would like patient to continue home medications. Plan of care discussed with patient and spouse they are agreeable with plan. Continues to have no chest pain at this time. Initial ECG Impression Date: Mar 10, 2021 Initial ECG Impression Time: 11:15 Initial ECG Rate: 51 Initial ECG Rhythm: S.Mendez Initial ECG Intervals: Normal Initial ECG Impression: Nonspecific Changes Diagnostic Imaging Diagonstic Imaging: Xray Plain Films/CT/US/NM/MRI: chest Comments [facility] [place] NAME: BALDO MASSEY [facility] REC#: [id number] PT STATUS: REG ER : 1950 PHYSICIAN: USHA HENLEY GRAPPLE SKIDDER OPERATOR ADMIT DATE: 03/10/21/ER Draft Date of Exam:03/10/21 CHEST 1 VIEW, AP/PA ONLY INDICATION: Chest pain. Reported diagnosed with NST BRYN yesterday. COMPARISON: 08/31/2020. Portable chest. The lungs are well-aerated. There is no infiltrate or air-trapping. There is cardiomegaly. Aorta is atherosclerotic without aneurysm. No pneumothorax or pleural effusion. IMPRESSION: Cardiomegaly with no acute changes. Dictated on workstation # [id number] Dict: 03/10/21 1138 Trans: 03/10/21 1147 [id number] Interpreted by: JAYJAY LAGUNAS MD Electronically signed by: Departure Communication (Admissions) Time/Spoke to Admitting Phy: 12:58 Dr. Wood Time/Spoke to Consulting Phy: 12:[address] Ward at this time. Impression Primary Impression: Chest pain Disposition: ADMITTED INPATIENT Condition: Stable Admissions Decision to Admit Reason: Admit from ER (General) Decision to Admit/Date: Mar 10, 2021 Time/Decision to Admit Time: 12:00 Departure-Patient Inst. Referrals: BECCA SIMON MD (PCP/Family) Primary Care Physician USHA HENLEY GRAPPLE SKIDDER OPERATOR Mar 10, 2021 11:20
[2021-03-10 11:22] LABS: BASOPHILS # (AUTO) 0.1 10^3/uL (0.0-0.1); BASOPHILS % (AUTO) 1 % (0-10); EOSINOPHILS # (AUTO) 0.2 10^3/uL (0.0-0.3); EOSINOPHILS % (AUTO) 3 % (0-10); HEMATOCRIT 38 % (35-52); HEMOGLOBIN 12.4 g/dL (11.5-16.0); LYMPHOCYTES # (AUTO) 2.3 10^3/uL (1.0-4.0); LYMPHOCYTES % (AUTO) 29 % (12-44); MEAN CORPUSCULAR HEMOGLOBIN 32 pg (25-34); MEAN CORPUSCULAR HGB CONC 33 g/dL (32-36); MEAN CORPUSCULAR VOLUME 96 fL (80-99); MEAN PLATELET VOLUME 9.9 fL (9.0-12.2); MONOCYTES # (AUTO) 0.5 10^3/uL (0.0-1.0); MONOCYTES % (AUTO) 6 % (0-12); NEUTROPHILS # (AUTO) 4.8 10^3/uL (1.8-7.8); NEUTROPHILS % (AUTO) 60 % (42-75); PLATELET COUNT 383 10^3/uL (130-400); WHITE BLOOD COUNT 7.9 10^3/uL (4.3-11.0)
[2021-03-10 11:36] LABS: INR 1.1 (0.8-1.4); PROTHROMBIN TIME PATIENT 14.4 SEC (12.2-14.7)
--- NOTE | 2021-03-10 11:47 | Diagnostic Imaging Report ---
INDICATION: Chest pain. Reported diagnosed with NST BRYN yesterday. COMPARISON: 08/31/2020. Portable chest. The lungs are well-aerated. There is no infiltrate or air-trapping. There is cardiomegaly. Aorta is atherosclerotic without aneurysm. No pneumothorax or pleural effusion. IMPRESSION: Cardiomegaly with no acute changes. Dictated by: Dictated on workstation # [id number]
[2021-03-10 11:52] LABS: ALBUMIN 3.9 GM/DL (3.2-4.5); BILIRUBIN,TOTAL 0.6 MG/DL (0.1-1.0); CALCIUM 9.4 MG/DL (8.5-10.1); CREATINE KINASE MB 3.4 NG/ML (<6.6); CREATININE SERUM 0.98 MG/DL (0.60-1.30); MAGNESIUM 2.2 MG/DL (1.6-2.4); POTASSIUM 3.6 MMOL/L (3.6-5.0); TOTAL PROTEIN 7.3 GM/DL (6.4-8.2)
--- NOTE | 2021-03-10 13:09 | Consultation-Cardiology ---
HPI-Cardiology Cardiology Consultation: Date of Consultation 03/10/21 Time Seen by a Provider: 13:40 Date of Admission 03-10-21 Attending Physician Admitting Physician Javid Melgar MD Consulting Physician Will Ward MD HPI: Chief Complaint: Chest pain Ms. Ohara is a 71yr old female admitted to [facility] from the ED with c/o chest discomfort. She reports approx a week ago she began to have heartburn, pressure which radiates up into her neck with any exertional activity. She reports she felt it was heartburn so she bought an OTC heartburn medicine which did help somewhat, but did not completely resolve her symptoms. She states the discomfort is brought on with exertion, but has woken her up from sleep at night. It can last from several minutes to hours. She reports the discomfort has been progressively worse and more frequent limiting her ability to carry out daily activities. She reports occ palpitations with the chest discomfort. She reports mild exertional SOB. Last episode of chest discomfort was last night while she was in the ED in [place]. She had gotten out of bed to ambulate to the bathroom when she developed chest pressure which she describes as mod to severe. She reports she required help back to bed at that time. No c/o LE swelling. No syncope or near syncope. She reports she had a recent right leg bypass procedure in December by Dr. Qureshi at [facility] in [place], [place]. She continues to smoke cigs. She herself is concerned that her symptoms are d/t a coronary artery blockage. Review of Systems-Cardiology Review of Systems Constitutional: No chills; malaise Eyes: No vision change Ears/Nose/Throat: No epistaxis, No recent hearing loss Respiratory: As described under HPI Cardiovascular: As described under HPI Gastrointestinal: No constipation, No diarrhea, No nausea, No vomiting Genitourinary: No dysuria, No hematuria Musculoskeletal: no symptoms reported Skin: No rash on exposed areas, No ulcerations on exposed areas Psychiatric/Neurological: No anxiety, No depression, No seizure, No focal weakness, No syncope Hematologic: No bleeding abnormalities JAJ-Wlucdp-Hkatro Hx Patient Social History Smoking Status: Current Everyday Smoker 2nd Hand Smoke Exposure: No Have you traveled recently?: No Alcohol Use?: No Pt feels they are or have been: No Tobacco type used: Cigarettes Immunizations Up To Date Tetanus Booster (TDap): Unknown Past Medical History PMH As described under Assessment. Family Medical History Family Medical History: Mother had UT at age 65 Father had CHF in his late 40s Allergies and Home Medications Allergies Coded Allergies: No Known Drug Allergies (Unverified , 02/16/18) Patient Home Medication List Aspirin (Children's Aspirin) 81 Mg Tab.chew, 81 MG PO DAILY Prescribed by: CHARLES SINGH on 09/01/20909 Atorvastatin Calcium (Lipitor) 40 Mg Tablet, 40 MG PO HS Prescribed by: CHARLES SINGH on 09/01/20909 Clopidogrel Bisulfate (Clopidogrel) 75 Mg Tablet, 75 MG PO DAILY Prescribed by: CHARLES SINGH on 09/01/20 09 Lisinopril (Lisinopril) 5 Mg Tablet, 5 MG PO DAILY Prescribed by: CHARLES SINGH on 09/01/20909 Melatonin (Melatonin) 3 Mg Tablet, 3 MG PO HS, (Reported) Entered as Reported by: YESI MCGREGOR on 02/13/18 0855 Metoprolol Succinate (Metoprolol Succinate) 25 Mg Tab.er.24h, 25 MG PO DAILY Prescribed by: CHARLES SINGH on 09/01/20 0910 Physical Exam-Cardiology Physical Exam Vital Signs/I&O 03/10/21 03/10/21 03/10/21 03/10/21 21:00 22:00 23:00 23:11 Temp 37.1 Pulse 52 70 74 84 Resp 15 8 16 15 B/P (MAP) 175/69 175/63 170/58 170/58 Pulse Ox 95 96 96 92 O2 Delivery Room Air Room Air Room Air Room Air 03/11/21 03/11/21 03/11/21 03/11/21 01:00 04:01 07:36 08:18 Temp 36.8 36.2 Pulse 76 60 73 Resp 12 16 B/P (MAP) 147/49 151/65 Pulse Ox 95 96 95 O2 Delivery Room Air Room Air Room Air 03/11/21 08:22 O2 Delivery Room Air 03/11/21 00:00 Intake Total 150 ml Output Total 500 ml Balance -350 ml Capillary Refill : Less Than 3 Seconds Constitutional: AAO x 3, well-developed, well-nourished HEENT: PERRL, hearing is well preserved, oral hygience is good Neck: carotid pulses are 2 + bilaterally Respiratory: No accessory muscle use, No respiratory distress; chest expansion is symmetric, chest is bilaterally symmetric, other (prolonged exp phase) Cardiovascular: regular rate-rhythm; No JVD; S1 and S2 Gastrointestinal: No tender; soft, round, audible bowel sounds Extremities: no lower extremity edema bilateral Neurologic/Psychiatric: grossly intact (moves all extremities) Skin: No rash on exposed areas, No ulcerations on exposed areas Data Review Labs Laboratory Tests 03/10/21 11:12: White Blood Count 7.9, Red Blood Count 3.94, Hemoglobin 12.4, Hematocrit 38, Mean Corpuscular Volume 96, Mean Corpuscular Hemoglobin 32, Mean Corpuscular Hemoglobin Concent 33, Red Cell Distribution Width 13.7, Platelet Count 383, Mean Platelet Volume 9.9, Immature Granulocyte % (Auto) 0, Neutrophils (%) (Auto) 60, Lymphocytes (%) (Auto) 29, Monocytes (%) (Auto) 6, Eosinophils (%) (Auto) 3, Basophils (%) (Auto) 1, Neutrophils # (Auto) 4.8, Lymphocytes # (Auto) 2.3, Monocytes # (Auto) 0.5, Eosinophils # (Auto) 0.2, Basophils # (Auto) 0.1, Immature Granulocyte # (Auto) 0.0, Prothrombin Time 14.4, INR Comment 1.1, Activated Partial Thromboplast Time 42H, D-Dimer 1.49H, Sodium Level 141, Potassium Level 3.6, Chloride Level 107, Carbon Dioxide Level 25, Anion Gap 9, Blood Urea Nitrogen 15, Creatinine 0.98, Estimat Glomerular Filtration Rate 56, BUN/Creatinine Ratio 15, Glucose Level 103, Calcium Level 9.4, Corrected Calcium 9.5, Magnesium Level 2.2, Total Bilirubin 0.6, Aspartate Amino Transf (AST/SGOT) 17, Alanine Aminotransferase (ALT/SGPT) 17, Alkaline Phosphatase 134, Creatine Kinase MB 3.4, Myoglobin 58.1, Troponin I 0.169H, B-Type Natriuretic Peptide 254.1H, Total Protein 7.3, Albumin 3.9, Lipase 55 03/10/21 17:15: Troponin I 0.151H 03/10/21 22:59: Troponin I 0.200H 03/11/21 04:37: White Blood Count 7.5, Red Blood Count 3.43L, Hemoglobin 10.6L, Hematocrit 33L, Mean Corpuscular Volume 97, Mean Corpuscular Hemoglobin 31, Mean Corpuscular Hemoglobin Concent 32, Red Cell Distribution Width 13.7, Platelet Count 333, Mean Platelet Volume 10.3, Immature Granulocyte % (Auto) 0, Neutrophils (%) (Auto) 62, Lymphocytes (%) (Auto) 26, Monocytes (%) (Auto) 8, Eosinophils (%) (Auto) 3, Basophils (%) (Auto) 1, Neutrophils # (Auto) 4.6, Lymphocytes # (Auto) 1.9, Monocytes # (Auto) 0.6, Eosinophils # (Auto) 0.3, Basophils # (Auto) 0.1, Immature Granulocyte # (Auto) 0.0, Sodium Level 141, Potassium Level 3.8, Chloride Level 110H, Carbon Dioxide Level 20L, Anion Gap 11, Blood Urea Nitrogen 15, Creatinine 0.80, Estimat Glomerular Filtration Rate 71, BUN/Creatinine Ratio 19, Glucose Level 99, Calcium Level 8.7, Triglycerides Level 146, Cholesterol Level 141, LDL Cholesterol Direct 87, VLDL Cholesterol 29, HDL Cholesterol 36L Radiology NAME: BALDO OHARA [facility] REC#: [id number] PT STATUS: REG ER : 1950 PHYSICIAN: USHA HENLEY APRN ADMIT DATE: 03/10/21/ER Draft Date of Exam:03/10/21 CHEST 1 VIEW, AP/PA ONLY INDICATION: Chest pain. Reported diagnosed with NST BRYN yesterday. COMPARISON: 08/31/2020. Portable chest. The lungs are well-aerated. There is no infiltrate or air-trapping. There is cardiomegaly. Aorta is atherosclerotic without aneurysm. No pneumothorax or pleural effusion. IMPRESSION: Cardiomegaly with no acute changes. Dictated on workstation # [id number] Dict: 03/10/21 1138 Trans: 03/10/21 1147 [id number] Interpreted by: JAYJAY LAGUNAS MD Electronically signed by: ECG Impression ECG Initial ECG Rhythm: Normal Sinus A/P-Cardiology Assessment/Admission Diagnosis NSTEMI - with angina H/O Ac inf wall STEMI, treated with primary PCI on 08/31/20 (see below) CAD - h/o cor stent in [place] several years ago (she does not know details) - card cath of 08/31/20: cor calcium present, 60-70% mid-LAD, patent stents in prox portion of a dominant RCA, distal occlusion of RCA treated with Zuri 2.75 x 18 stent on 08/31/20, posterobasal & diaphragmatic akinesis, LVEF 40% - echo of 09/01/20 (to f/u on ischemic cardiomyopathy seen at card cath): LVEF 50- 55%, improved motion of inf wall, PASP 20-25% PAD of which she does not know any details - observations at time of card cath of 08/31/20: kissing stents of ostial common iliacs, stent in R common and sup femoral (prevented sheath insertion) - right fem-pop in Dec [address] Qureshi at [facility] in [place], [place] Chronic tobacco use (1 ppd) Vague h/o COPD Discussion and Recomendations Based on continuing chest discomfort, h/o, risk factors and her own concern that her symptoms are d/t coronary artery blockage we advise cardiac cath. We have discussed the procedure, risks, benefits and potential complications of cardiac cath with possible ad hoc coronary intervention. She provides informed consent. Continue ASA and Plavix Montior lab Further recs will be based on her hospital course Request records from [facility] Clinical Quality Measures AMI/AHF: ASA po Prior to arrival: Yes CHARLES SINGH Mar 10, 2021 13:09
[2021-03-10] MEDS ORDERED: LIDOCAINE 1% INJ 20 ML 20 ML VIAL ONE (14:20)
[2021-03-10] MEDS ORDERED: NS IV 1000 ML 1,000 ML ONE (14:20)
[2021-03-10] MEDS ORDERED: HEParin (CATH LAB) 2,000 ML IV ONE (14:20)
[2021-03-10 14:21] VITALS: BP 156/78
[2021-03-10] MEDS ORDERED: fentaNYL INJ 100 MCG/2 ML AMP ONE ×2 (14:22→19:05)
[2021-03-10] MEDS ORDERED: MIDAZOLAM 5 MG/5 ML (VERSED) VIAL ONE (14:22)
[2021-03-10] MEDS ORDERED: NS IV 1000 ML 1,000 ML IV SCH (14:30)
[2021-03-10] MEDS ORDERED: ENOXAPARIN 60 MG/0.6 ML (LOVENOX) SYR SC SCH ×2 (15:00→21:00)
[2021-03-10] MEDS ORDERED: ACETAMINOPHEN 325 MG TABLET PO PRN (15:00)
[2021-03-10] MEDS ORDERED: ONDANSETRON 4 MG/2 ML (SDV) Z0FRAN IVP PRN (15:00)
[2021-03-10] MEDS ORDERED: NITROGLYCERIN 0.4 MG SL TABS BTL 25'S SL PRN (15:00)
[2021-03-10] MEDS ORDERED: CATHETER FLUSH 10 ML SYR IV PRN (15:00)
[2021-03-10] MEDS ORDERED: morphine INJ 4 MG/ML 1 ML (VIAL/SYRINGE) IV PRN (15:00)
[2021-03-10] MEDS ORDERED: HEParin 1000 UNIT/ML (10ML VIAL) FOR BOLUS ONE (15:12)
[2021-03-10] MEDS ORDERED: EPTIFIBATIDE BOLUS 20 ML IV ONE (15:13)
[2021-03-10] MEDS ORDERED: NITRO DRIP 25000 MCG/D5W 250 ML IV ONE (15:13)
[2021-03-10] MEDS ORDERED: CLOPIDOGREL 75 MG (PLAVIX) TABLET ONE (15:46)
[2021-03-10] MEDS ORDERED: ASPIRIN 81 MG CHEW (CHILDREN'S ASA) ONE (15:46)
[2021-03-10 16:02] VITALS: BP 157/73
--- NOTE | 2021-03-10 16:06 | Consultation-Cardiology ---
HPI-Cardiology Cardiology Consultation: Date of Consultation 03/10/21 Time Seen by a Provider: 15:00 Date of Admission Attending Physician Miriam Wood MD Admitting Physician Javid Melgar MD Consulting Physician MARCELLA SUBRAMANIAN MD, MA, FACP, FACC, FSCAI, CCDS HPI: Chief Complaint: Chest pain Ms. Ohara is a 71yr old female admitted to [facility] from the ED with c/o chest discomfort. She reports approx a week ago she began to have heartburn, pressure which radiates up into her neck with any exertional activity. She reports she felt it was heartburn so she bought an OTC heartburn medicine which did help somewhat, but did not completely resolve her symptoms. She states the discomfort is brought on with exertion, but has woken her up from sleep at night. It can last from several minutes to hours. She reports the discomfort has been progressively worse and more frequent limiting her ability to carry out daily activities. She reports occ palpitations with the chest discomfort. She reports mild exertional SOB. Last episode of chest discomfort was last night while she was in the ED in [place]. She had gotten out of bed to ambulate to the bathroom when she developed chest pressure which she describes as mod to severe. She reports she required help back to bed at that time. No c/o LE swelling. No syncope or near syncope. She reports she had a recent right leg bypass procedure in December by Dr. Qureshi at [facility] in [place], [place]. She continues to smoke cigs. She herself is concerned that her symptoms are d/t a coronary artery blockage. Review of Systems-Cardiology Review of Systems Constitutional: No chills; malaise Eyes: No vision change Ears/Nose/Throat: No epistaxis, No recent hearing loss Respiratory: As described under HPI Cardiovascular: As described under HPI Gastrointestinal: No constipation, No diarrhea, No nausea, No vomiting Genitourinary: No dysuria, No hematuria Musculoskeletal: no symptoms reported Skin: No rash on exposed areas, No ulcerations on exposed areas Psychiatric/Neurological: No anxiety, No depression, No seizure, No focal weakness, No syncope Hematologic: No bleeding abnormalities ZCI-[id number]-Kqsyio Hx Patient Social History Smoking Status: Current Everyday Smoker 2nd Hand Smoke Exposure: No Have you traveled recently?: No Alcohol Use?: No Pt feels they are or have been: No Tobacco type used: Cigarettes Immunizations Up To Date Tetanus Booster (TDap): Unknown Past Medical History PMH As described under Assessment. Family Medical History Family Medical History: Mother had MS at age 65 Father had CHF in his late 40s Allergies and Home Medications Allergies Coded Allergies: No Known Drug Allergies (Unverified , 02/16/18) Patient Home Medication List Home Medication List Reviewed: Yes Aspirin (Children's Aspirin) 81 Mg Tab.chew, 81 MG PO DAILY Prescribed by: CHARLES SINGH on 09/01/20 09 Atorvastatin Calcium (Lipitor) 40 Mg Tablet, 40 MG PO HS Prescribed by: CHARLES SINGH on 09/01/20 0910 Clopidogrel Bisulfate (Clopidogrel) 75 Mg Tablet, 75 MG PO DAILY Prescribed by: CHARLES SINGH on 09/01/20 09 Lisinopril (Lisinopril) 5 Mg Tablet, 5 MG PO DAILY Prescribed by: CHARLES SINGH on 09/01/20 09 Melatonin (Melatonin) 3 Mg Tablet, 3 MG PO HS, (Reported) Entered as Reported by: YESI MCGREGOR on 02/13/18 0855 Metoprolol Succinate (Metoprolol Succinate) 25 Mg Tab.er.24h, 25 MG PO DAILY Prescribed by: CHARLES SINGH on 09/01/20 0910 Physical Exam-Cardiology Physical Exam Vital Signs/I&O 03/10/21 03/10/21 03/10/21 11:02 13:51 14:21 Temp 36.8 Pulse 60 58 62 Resp 19 19 15 B/P (MAP) 157/73 (101) 150/56 156/78 (104) Pulse Ox 96 98 97 O2 Delivery Room Air Room Air Room Air Capillary Refill : Less Than 3 Seconds Constitutional: AAO x 3, well-developed, well-nourished HEENT: PERRL, hearing is well preserved, oral hygience is good Neck: carotid pulses are 2 + bilaterally Respiratory: No accessory muscle use, No respiratory distress; chest expansion is symmetric, chest is bilaterally symmetric, other (prolonged exp phase) Cardiovascular: regular rate-rhythm; No JVD; S1 and S2 Gastrointestinal: No tender; soft, round, audible bowel sounds Extremities: no lower extremity edema bilateral Neurologic/Psychiatric: grossly intact (moves all extremities) Skin: No rash on exposed areas, No ulcerations on exposed areas Data Review Labs Laboratory Tests 03/10/21 11:12: White Blood Count 7.9, Red Blood Count 3.94, Hemoglobin 12.4, Hematocrit 38, Mean Corpuscular Volume 96, Mean Corpuscular Hemoglobin 32, Mean Corpuscular Hemoglobin Concent 33, Red Cell Distribution Width 13.7, Platelet Count 383, Mean Platelet Volume 9.9, Immature Granulocyte % (Auto) 0, Neutrophils (%) (Auto) 60, Lymphocytes (%) (Auto) 29, Monocytes (%) (Auto) 6, Eosinophils (%) (Auto) 3, Basophils (%) (Auto) 1, Neutrophils # (Auto) 4.8, Lymphocytes # (Auto) 2.3, Monocytes # (Auto) 0.5, Eosinophils # (Auto) 0.2, Basophils # (Auto) 0.1, Immature Granulocyte # (Auto) 0.0, Prothrombin Time 14.4, INR Comment 1.1, Activated Partial Thromboplast Time 42H, D-Dimer 1.49H, Sodium Level 141, Potassium Level 3.6, Chloride Level 107, Carbon Dioxide Level 25, Anion Gap 9, Blood Urea Nitrogen 15, Creatinine 0.98, Estimat Glomerular Filtration Rate 56, BUN/Creatinine Ratio 15, Glucose Level 103, Calcium Level 9.4, Corrected Calcium 9.5, Magnesium Level 2.2, Total Bilirubin 0.6, Aspartate Amino Transf (AST/SGOT) 17, Alanine Aminotransferase (ALT/SGPT) 17, Alkaline Phosphatase 134, Creatine Kinase MB 3.4, Myoglobin 58.1, Troponin I 0.169H, B-Type Natriuretic Peptide 254.1H, Total Protein 7.3, Albumin 3.9, Lipase 55 A/P-Cardiology Assessment/Admission Diagnosis NSTEMI and unstable angina - treated with PCI to distal RCA today (see under CAD below) CAD - h/o cor stent in [place] several years ago (she does not know details) - h/o ac inf wall STEMI, treated with primary PCI on 08/31/20 (see below) - card cath of 08/31/20: cor calcium present, 60-70% mid-LAD, patent stents in prox portion of a dominant RCA, distal occlusion of RCA treated with Zuri 2.75 x 18 stent on 08/31/20, posterobasal & diaphragmatic akinesis, LVEF 40% - echo of 09/01/20 (to f/u on ischemic cardiomyopathy seen at card cath): LVEF 50- 55%, improved motion of inf wall, PASP 20-25% - card cath on 03/10/21: 60% mid LAD, mild to mod LCX, 99% RCA just distal to the distal edge of mid RCA stent (treated with 2.5x18 Skypoint stent, post- dilated with NC 3.0 x12 at the overlap with previous stent), distal RCA has 70% stenosis but vessel is of small caliber, LVEDP 10 mmHg, LVEF 55-60% PAD - observations at time of card cath of 08/31/20: kissing stents of ostial common iliacs, stent in R common and sup femoral (prevented sheath insertion) - right fem-pop in Dec [address] Qureshi at [facility] in [place], [place] Chronic tobacco use (1 ppd) Vague h/o COPD Discussion and Recomendations We discussed the procedure, risks, benefits and potential complications of cardiac cath with possible ad hoc coronary intervention. She provided informed consent. Continue ASA and Plavix Monitor labs Advised to quit smoking immediately and completely Further recs will be based on her hospital course Request records from [facility] (PAD intervention) Clinical Quality Measures AMI/AHF: ASA po Prior to arrival: Yes MARCELLA SUBRAMANIAN MD FACP FAC CCDS Mar 10, 2021 16:06
[2021-03-10] MEDS ORDERED: TEMAZEPAM 7.5 MG CAP (RESTORIL) PO PRN (16:30)
[2021-03-10] MEDS ORDERED: PATIENT MAY USE OWN MEDS, ALL PO SCH (16:30)
[2021-03-10] MEDS ORDERED: RT-ALBUTEROL/IPRATROPIUM 3 ML (DUONEB) VIAL INH PRN (17:00)
[2021-03-10] MEDS: NS IV 1000 ML 1,000 ML IV SCH (18:25)
[2021-03-10] MEDS ORDERED: ATROPINE INJECTION 1 MG/10 ML SYR (ABBOTT) ONE (19:05)
[2021-03-10] MEDS: RT-ALBUTEROL/IPRATROPIUM 3 ML (DUONEB) VIAL INH SCH (20:17)
[2021-03-10] MEDS ORDERED: MELATONIN 10 MG TABLET PO SCH (21:00)
--- NOTE | 2021-03-10 21:25 | CARDIAC CATHETERIZATION ---
DATE OF SERVICE: 03/10/2021 CARDIAC CATHETERIZATION AND CORONARY INTERVENTION REPORT The patient is a 71-year-old lady, who is known to have coronary artery disease. Several years ago, she had stenting done in [place], the details of which are not known. In 08/2020, she presented with acute inferior wall myocardial infarction and underwent a cardiac catheterization at this hospital and was found to have occlusion of the mid right coronary artery past patent stents in the proximal portion. This was successfully stented with Zuri 2.75 x 18 mm stent. She now presents with acute non-ST elevation myocardial infarction and unstable angina. Cardiac catheterization was recommended. Informed consent was obtained for cardiac catheterization and possible ad hoc coronary intervention. DESCRIPTION OF PROCEDURE: She was brought to the cardiac catheterization laboratory. The left groin was prepared and draped in the usual sterile fashion. Lidocaine 1% was used for local anesthesia. Modified Seldinger technique was used to advance a 5-Ivorian sheath into the left femoral artery. We used 5-Ivorian JL4 catheter for left coronary angiography and 5-Ivorian JR4 catheter was used for right coronary angiography. We used a 5-Ivorian pigtail catheter for left heart catheterization and left ventricular angiography. Subsequently, percutaneous intervention was carried out to the right coronary artery that is described below. PERCUTANEOUS INTERVENTION TO THE RIGHT CORONARY ARTERY: We exchanged the sheath over a wire for a 6-Ivorian sheath. We gave 4000 units of intravenous heparin and double bolus of Integrilin. We used a 6-Ivorian JR4 guide catheter to engage the right coronary artery. We advanced. We advanced a BMW wire across the 99% stenosis in the distal right coronary artery, just distal to the distal edge of the mid vessel stent. The tip of the wire was placed in the terminal posterolateral. We carried out balloon angioplasty with a 2.0 x 20 mm balloon. This reduced the stenosis from 90% to about 70%. We then advanced a Skypoint 2.5 x 18 mm stent. This was carefully positioned to cover the lesion. It slightly overlaps the previous stent. The stent was deployed at 14 atmospheres. Subsequently, we carried out balloon angioplasty at the site of overlap with a 3.0 x 12 mm noncompliant balloon. Subsequent angiography reveals no significant residual stenosis and flow throughout the vessel is normal. There is distal stenosis in the right coronary, just proximal to the terminal posterolateral branch, but the vessel here is of a small caliber and does not appear amenable to intervention. The patient tolerated the procedure well. The sheath was sutured in place and the patient was transferred to the floor for manual sheath removal. HEMODYNAMICS: Left ventricular end-diastolic pressure following coronary angiography was 10 mmHg. There was no significant pressure gradient on pullback across the aortic valve. LEFT VENTRICULAR ANGIOGRAPHY: Left ventricular angiography was carried out in the right anterior oblique projection. Global left ventricular systolic function is well preserved. Left ventricular ejection fraction is approximately 55% to 60%. CORONARY ANGIOGRAPHY: Left main coronary artery is free of significant disease. Left anterior descending artery had approximately 60% proximal to mid vessel stenosis. Also, there is a 50% to 60% stenosis in the mid to distal left anterior descending. The rest of the left anterior descending has diffuse mild to moderate disease. The left circumflex artery has mild to moderate disease. Right coronary artery is dominant. It was exhibiting a 99% stenosis just distal to the distal edge of the stented proximal and mid right coronary artery. This lesion was successfully treated with balloon angioplasty followed by stenting with Alpine Xience 2.5 x 18 mm stent and the overlapping portion of the stent with the previous stent was postdilated with a 3.0 x 12 mm balloon. Subsequently, there is no significant residual stenosis. There is very distal stenosis in the right coronary where the vessel does not appear amenable to intervention. CONCLUSIONS: 1. The culprit lesion was a 99% stenosis in the distal right coronary artery, just distal to the distal edge of the standard segment of the right coronary. This was treated successfully stenting with Skypoint 2.5 x 18 mm stent and the overlap of the stent with the previous stent was postdilated with a 3.0 x 12 mm balloon. The very distal right coronary artery has 70% stenosis, but is of small caliber and is not amenable to intervention and does not appear amenable to intervention. The left anterior descending artery has a 50% to 60% proximal to mid vessel and 50% to 60% mid to distal vessel stenoses. The left circumflex artery has diffuse mild to moderate disease. 2. Normal global left ventricular systolic function with ejection fraction of 55% to 60%. 3. Normal left ventricular end-diastolic pressure (10 mmHg). DISCUSSION AND RECOMMENDATIONS: She is being treated with dual-antiplatelet therapy, beta-blockers, statins. She has been advised to quit smoking immediately and completely. Job ID: [id number] DocumentID: [id number] Dictated Date: 03/10/2021 16:47:36 Sleeping Bag Filler Date: 03/10/2021 21:24:49 Dictated By: MARCELLA SUBRAMANIAN MD, MA, FACP, FACC,
[2021-03-10] MEDS: CATHETER FLUSH 10 ML SYR IV SCH (22:04)
[2021-03-11] MEDS: NS IV 1000 ML 1,000 ML IV SCH (02:38)
[2021-03-11 05:00] LABS: BASOPHILS # (AUTO) 0.1 10^3/uL (0.0-0.1); BASOPHILS % (AUTO) 1 % (0-10); EOSINOPHILS # (AUTO) 0.3 10^3/uL (0.0-0.3); EOSINOPHILS % (AUTO) 3 % (0-10); HEMATOCRIT 33 % (35-52); HEMOGLOBIN 10.6 g/dL (11.5-16.0); LYMPHOCYTES # (AUTO) 1.9 10^3/uL (1.0-4.0); LYMPHOCYTES % (AUTO) 26 % (12-44); MEAN CORPUSCULAR HEMOGLOBIN 31 pg (25-34); MEAN CORPUSCULAR HGB CONC 32 g/dL (32-36); MEAN CORPUSCULAR VOLUME 97 fL (80-99); MEAN PLATELET VOLUME 10.3 fL (9.0-12.2); MONOCYTES # (AUTO) 0.6 10^3/uL (0.0-1.0); MONOCYTES % (AUTO) 8 % (0-12); NEUTROPHILS # (AUTO) 4.6 10^3/uL (1.8-7.8); NEUTROPHILS % (AUTO) 62 % (42-75); PLATELET COUNT 333 10^3/uL (130-400); WHITE BLOOD COUNT 7.5 10^3/uL (4.3-11.0)
[2021-03-11] MEDS: CATHETER FLUSH 10 ML SYR IV SCH (05:12)
[2021-03-11 05:18] LABS: POTASSIUM 3.8 MMOL/L (3.6-5.0)
[2021-03-11 05:20] LABS: CALCIUM 8.7 MG/DL (8.5-10.1)
[2021-03-11 05:24] LABS: CREATININE SERUM 0.8 MG/DL (0.60-1.30)
[2021-03-11] MEDS: RT-ALBUTEROL/IPRATROPIUM 3 ML (DUONEB) VIAL INH SCH (07:35)
--- NOTE | 2021-03-11 07:57 | Discharge Inst-Cardiology ---
Discharge Inst-Cardiac Discharge Medications Continued Medications: Aspirin (Children's Aspirin) 81 Mg Tab.chew 81 MG PO DAILY, #60 TAB 3 Refills Atorvastatin Calcium (Lipitor) 40 Mg Tablet 40 MG PO HS, #90 TAB 3 Refills Clopidogrel Bisulfate (Clopidogrel) 75 Mg Tablet 75 MG PO DAILY, #90 TAB 3 Refills Lisinopril (Lisinopril) 5 Mg Tablet 5 MG PO DAILY, #90 TAB 3 Refills Melatonin (Melatonin) 3 Mg Tablet 3 MG PO HS, TAB Metoprolol Succinate (Metoprolol Succinate) 25 Mg Tab.er.24h 25 MG PO DAILY, #90 TAB 3 Refills Patient Instructions Patient Instructions: Please schedule follow up appointment to see Dr. Ward in one week CHARLES SINGH Mar 11, 2021 07:57
--- NOTE | 2021-03-11 08:36 | Progress Note - Cardiology ---
Cardiology SOAP Progress Note Subjective: Lying in bed States she feels great this morning No c/o CP, SOB, palpitations or heartburn Objective: I&O/Vital Signs 03/10/21 03/10/21 03/10/21 03/10/21 21:00 22:00 23:00 23:11 Temp 37.1 Pulse 52 70 74 84 Resp 15 8 16 15 B/P (MAP) 175/69 175/63 170/58 170/58 Pulse Ox 95 96 96 92 O2 Delivery Room Air Room Air Room Air Room Air 03/11/21 03/11/21 03/11/21 03/11/21 01:00 04:01 07:36 08:18 Temp 36.8 36.2 Pulse 76 60 73 Resp 12 16 B/P (MAP) 147/49 151/65 Pulse Ox 95 96 95 O2 Delivery Room Air Room Air Room Air 03/11/21 08:22 O2 Delivery Room Air 03/11/21 00:00 Intake Total 150 ml Output Total 500 ml Balance -350 ml Weight (Pounds): 146 Weight (Ounces): 3.0 Weight (Calculated Kilograms): 66.813097 Side: left Groin site without hematoma: Yes Condition: DP/PT pulses palpable Bruising: mild bruising Constitutional: AAO x 3, well-developed, well-nourished Respiratory: No accessory muscle use, No respiratory distress; chest expansion is symmetric, chest is bilaterally symmetric, other (prolonged exp phase) Cardiovascular: regular rate-rhythm; No JVD; S1 and S2 Gastrointestional: No tender; soft, round, audible bowel sounds Extremities: no lower extremity edema bilateral Neurologic/Psychiatric: grossly intact (moves all extremities) Skin: No rash on exposed areas, No ulcerations on exposed areas Results/Procedures: Labs Laboratory Tests 03/10/21 11:12: White Blood Count 7.9, Red Blood Count 3.94, Hemoglobin 12.4, Hematocrit 38, Mean Corpuscular Volume 96, Mean Corpuscular Hemoglobin 32, Mean Corpuscular Hemoglobin Concent 33, Red Cell Distribution Width 13.7, Platelet Count 383, Mean Platelet Volume 9.9, Immature Granulocyte % (Auto) 0, Neutrophils (%) (Auto) 60, Lymphocytes (%) (Auto) 29, Monocytes (%) (Auto) 6, Eosinophils (%) (Auto) 3, Basophils (%) (Auto) 1, Neutrophils # (Auto) 4.8, Lymphocytes # (Auto) 2.3, Monocytes # (Auto) 0.5, Eosinophils # (Auto) 0.2, Basophils # (Auto) 0.1, Immature Granulocyte # (Auto) 0.0, Prothrombin Time 14.4, INR Comment 1.1, Activated Partial Thromboplast Time 42H, D-Dimer 1.49H, Sodium Level 141, Potassium Level 3.6, Chloride Level 107, Carbon Dioxide Level 25, Anion Gap 9, Blood Urea Nitrogen 15, Creatinine 0.98, Estimat Glomerular Filtration Rate 56, BUN/Creatinine Ratio 15, Glucose Level 103, Calcium Level 9.4, Corrected Calcium 9.5, Magnesium Level 2.2, Total Bilirubin 0.6, Aspartate Amino Transf (AST/SGOT) 17, Alanine Aminotransferase (ALT/SGPT) 17, Alkaline Phosphatase 134, Creatine Kinase MB 3.4, Myoglobin 58.1, Troponin I 0.169H, B-Type Natriuretic Peptide 254.1H, Total Protein 7.3, Albumin 3.9, Lipase 55 03/10/21 17:15: Troponin I 0.151H 03/10/21 22:59: Troponin I 0.200H 03/11/21 04:37: White Blood Count 7.5, Red Blood Count 3.43L, Hemoglobin 10.6L, Hematocrit 33L, Mean Corpuscular Volume 97, Mean Corpuscular Hemoglobin 31, Mean Corpuscular Hemoglobin Concent 32, Red Cell Distribution Width 13.7, Platelet Count 333, Mean Platelet Volume 10.3, Immature Granulocyte % (Auto) 0, Neutrophils (%) (Auto) 62, Lymphocytes (%) (Auto) 26, Monocytes (%) (Auto) 8, Eosinophils (%) (Auto) 3, Basophils (%) (Auto) 1, Neutrophils # (Auto) 4.6, Lymphocytes # (Auto) 1.9, Monocytes # (Auto) 0.6, Eosinophils # (Auto) 0.3, Basophils # (Auto) 0.1, Immature Granulocyte # (Auto) 0.0, Sodium Level 141, Potassium Level 3.8, Chloride Level 110H, Carbon Dioxide Level 20L, Anion Gap 11, Blood Urea Nitrogen 15, Creatinine 0.80, Estimat Glomerular Filtration Rate 71, BUN/Creatinine Ratio 19, Glucose Level 99, Calcium Level 8.7, Triglycerides Level 146, Cholesterol Level 141, LDL Cholesterol Direct 87, VLDL Cholesterol 29, HDL Cholesterol 36L Laboratory Tests 03/10/21 11:12 03/11/21 04:37 Procedures S/P cardiac cath with successful coronary intervention on 03-10-21 A/P: Assessment: NSTEMI and unstable angina - treated with PCI to distal RCA today (see under CAD below) CAD - h/o cor stent in [place] several years ago (she does not know details) - h/o ac inf wall STEMI, treated with primary PCI on 08/31/20 (see below) - card cath of 08/31/20: cor calcium present, 60-70% mid-LAD, patent stents in pr ox portion of a dominant RCA, distal occlusion of RCA treated with Zuri 2.75 x 18 stent on 08/31/20, posterobasal & diaphragmatic akinesis, LVEF 40% - echo of 09/01/20 (to f/u on ischemic cardiomyopathy seen at card cath): LVEF 50- 55%, improved motion of inf wall, PASP 20-25% - card cath on 03/10/21: 60% mid LAD, mild to mod LCX, 99% RCA just distal to the distal edge of mid RCA stent (treated with 2.5x18 Skypoint stent, post- dilated with NC 3.0 x12 at the overlap with previous stent), distal RCA has 70% stenosis but vessel is of small caliber, LVEDP 10 mmHg, LVEF 55-60% PAD - observations at time of card cath of 08/31/20: kissing stents of ostial common iliacs, stent in R common and sup femoral (prevented sheath insertion) - right fem-pop in Dec [address] Qureshi at [facility] in [place], [place] Chronic tobacco use (1 ppd) Vague h/o COPD Plan: S/P cardiac cath with successful coronary intervention on 03-10-21 Continue DAPT, statin and BB Monitor labs Again advised to quit smoking immediately and completely Ambulate in the halls this morning Clinical Quality Measures AMI/AHF: ASA po Prior to arrival: Yes CHARLES SINGH Mar 11, 2021 08:36
[2021-03-11] MEDS ORDERED: ASPIRIN E.C. 81 MG (ECOTRIN) TAB PO SCH (09:00)
[2021-03-11] MEDS ORDERED: CLOPIDOGREL 75 MG (PLAVIX) TABLET PO SCH (09:00)
--- NOTE | 2021-03-11 09:12 | Short Stay Summary ---
History of Present Illness History of Present Illness Reason for visit/HPI Went to [place] [facility] due to chest pain, she thought it was indigestion had been going on for a week, but that day was the worst, she was there through the night because they were having trouble finding a place to send her for cardiac cath. She ended up leaving the ER against medical advice, and came here to our ER. Found to have troponin elevated and has history of CAD with stenting in the p ast. Date of Admission Mar 10, 2021 at 12:15 Date of Discharge Mar 11, 2021 Time Seen by Provider: 09:09 Attending Physician Israel,Nikki Mason MD Admitting Physician Javid Melgar MD Consult Allergies and Home Medications Allergies Coded Allergies: No Known Drug Allergies (Unverified , 02/16/18) Patient Home Medication List Home Medication List Reviewed: Yes Aspirin (Children's Aspirin) 81 Mg Tab.chew, 81 MG PO DAILY Prescribed by: CHARLES SINGH on 09/01/20 0910 Last Action: Reviewed Atorvastatin Calcium (Lipitor) 40 Mg Tablet, 40 MG PO HS Prescribed by: NIKKI BONILLA on 03/11/21912 Clopidogrel Bisulfate (Clopidogrel) 75 Mg Tablet, 75 MG PO DAILY Prescribed by: NIKKI BONILLA on 03/11/21912 Lisinopril (Lisinopril) 5 Mg Tablet, 5 MG PO DAILY Prescribed by: NIKKI BONILLA on 03/11/21912 Melatonin (Melatonin) 3 Mg Tablet, 3 MG PO HS, (Reported) Entered as Reported by: YESI MCGREGOR on 02/13/18 0855 Last Action: Reviewed Metoprolol Succinate (Metoprolol Succinate) 25 Mg Tab.er.24h, 25 MG PO DAILY Prescribed by: NIKKI BONILLA on 03/11/21 09 Past Eikuroo-Vypesa-Xarefv Hx Patient Social History Smoking Status: Current Everyday Smoker Former Smoker, Quit: Feb 07, 2018 2nd Hand Smoke Exposure: No Recent Hopitalizations: No Have you traveled recently?: No Alcohol Use?: No Pt feels they are or have been: No Tobacco type used: Cigarettes Immunizations Up To Date Tetanus Booster (TDap): Unknown Pediatric: No Seasonal Allergies Seasonal Allergies: No Surgeries Yes (Stents x 1) Coronary Stent, Vascular Surgery (stents in legs) Respiratory Yes Currently Using CPAP: No Currently Using BIPAP: No Cardiovascular Yes Heart Attack, High Cholesterol, Hypertension Neurological No Reproductive System Sexually Transmitted Disease: No HIV/AIDS: No Female Reproductive Disorders: 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 Genitourinary No Gastrointestinal No Musculoskeletal No Endocrine History of Endocrine Disorders: No HEENT History of HEENT Disorders: No Cancer No Did You Recieve Any Treatments: No Psychosocial History of Psychiatric Problem: No Integumentary History of Skin or Integumenta: Yes (Compulsive skin picking, cellulitis) Blood Transfusions History of Blood Disorders: No Family Medical History Significant Family History: No Pertinent Family Hx Review of Systems Constitutional: No fever EENTM: nose congestion (cold symtpoms for about a month, reports negative covid testing); No throat pain Respiratory: cough (attributes to smoking), short of breath (chronic) Gastrointestinal: No abdominal pain, No constipation; diarrhea (chronic); No nausea, No vomiting Genitourinary: No dysuria Musculoskeletal: No joint pain, No muscle pain Skin: No rash Psychiatric/Neurological: Denies Anxiety, Denies Depressed Physical Exam Vital Signs Vital Signs - First Documented 03/10/21 03/10/21 03/10/21 11:02 14:21 16:02 Temp 36.8 Pulse 60 Resp 19 B/P (MAP) 157/73 (101) Pulse Ox 96 O2 Delivery Room Air FiO2 21 Capillary Refill : Less Than 3 Seconds Height, Weight, BMI Height: 5'6.00" Weight: 146lbs. 3.0oz. [id number]; 22.78 BMI Method:Stated General Appearance: No Apparent Distress, WD/WN Respiratory: Lungs Clear, Normal Breath Sounds Cardiovascular: Regular Rate, Rhythm, No Murmur Gastrointestinal: Normal Bowel Sounds, Non Tender, Soft Extremity: No Pedal Edema Neurologic/Psychiatric: Alert, Normal Mood/Affect Skin: Normal Color, Warm/Dry Clinical Quality Measures AMI/AHF: ASA po Prior to arrival: Yes Short Stay Diagnosis Discharge Diagnosis-Short Stay Admission Diagnosis: Chest pain NSTEMI Coronary artery disease Tobacco use Hypertension Hyperlipidemia Final Discharge Diagnosis: Chest pain NSTEMI requiring stenting to distal RCA Coronary artery disease Tobacco use Hypertension Hyperlipidemia Conclusion Labs Laboratory Tests 03/10/21 11:12: White Blood Count 7.9, Red Blood Count 3.94, Hemoglobin 12.4, Hematocrit 38, Mean Corpuscular Volume 96, Mean Corpuscular Hemoglobin 32, Mean Corpuscular Hemoglobin Concent 33, Red Cell Distribution Width 13.7, Platelet Count 383, Mean Platelet Volume 9.9, Immature Granulocyte % (Auto) 0, Neutrophils (%) (Auto) 60, Lymphocytes (%) (Auto) 29, Monocytes (%) (Auto) 6, Eosinophils (%) (Auto) 3, Basophils (%) (Auto) 1, Neutrophils # (Auto) 4.8, Lymphocytes # (Auto) 2.3, Monocytes # (Auto) 0.5, Eosinophils # (Auto) 0.2, Basophils # (Auto) 0.1, Immature Granulocyte # (Auto) 0.0, Prothrombin Time 14.4, INR Comment 1.1, Activated Partial Thromboplast Time 42H, D-Dimer 1.49H, Sodium Level 141, Potassium Level 3.6, Chloride Level 107, Carbon Dioxide Level 25, Anion Gap 9, Blood Urea Nitrogen 15, Creatinine 0.98, Estimat Glomerular Filtration Rate 56, BUN/Creatinine Ratio 15, Glucose Level 103, Calcium Level 9.4, Corrected Calcium 9.5, Magnesium Level 2.2, Total Bilirubin 0.6, Aspartate Amino Transf (AST/SGOT) 17, Alanine Aminotransferase (ALT/SGPT) 17, Alkaline Phosphatase 134, Creatine Kinase MB 3.4, Myoglobin 58.1, Troponin I 0.169H, B-Type Natriuretic Peptide 254.1H, Total Protein 7.3, Albumin 3.9, Lipase 55 03/10/21 17:15: Troponin I 0.151H 03/10/21 22:59: Troponin I 0.200H 03/11/21 04:37: White Blood Count 7.5, Red Blood Count 3.43L, Hemoglobin 10.6L, Hematocrit 33L, Mean Corpuscular Volume 97, Mean Corpuscular Hemoglobin 31, Mean Corpuscular Hemoglobin Concent 32, Red Cell Distribution Width 13.7, Platelet Count 333, Mean Platelet Volume 10.3, Immature Granulocyte % (Auto) 0, Neutrophils (%) (Auto) 62, Lymphocytes (%) (Auto) 26, Monocytes (%) (Auto) 8, Eosinophils (%) (Auto) 3, Basophils (%) (Auto) 1, Neutrophils # (Auto) 4.6, Lymphocytes # (Auto) 1.9, Monocytes # (Auto) 0.6, Eosinophils # (Auto) 0.3, Basophils # (Auto) 0.1, Immature Granulocyte # (Auto) 0.0, Sodium Level 141, Potassium Level 3.8, Chloride Level 110H, Carbon Dioxide Level 20L, Anion Gap 11, Blood Urea Nitrogen 15, Creatinine 0.80, Estimat Glomerular Filtration Rate 71, BUN/Creatinine Ratio 19, Glucose Level 99, Calcium Level 8.7, Triglycerides Level 146, Cholesterol Level 141, LDL Cholesterol Direct 87, VLDL Cholesterol 29, HDL Cholesterol 36L Conclusion/Plan Patient admitted and had catheterization done with stenting to RCA, strongly encouraged to quit smoking. Continued on home aspirin, plavix, ACEI and beta michael. NIKKI BONILLA MD Mar 11, 2021 09:12
[2021-03-11] MEDS ORDERED: MTP25TSR PO (09:13)
[2021-03-11] MEDS ORDERED: CLOP75TA28 PO (09:13)
[2021-03-11] MEDS ORDERED: LISI5TAB20 PO (09:13)
[2021-03-11] MEDS ORDERED: ATOR40TA PO (09:13)
--- NOTE | 2021-03-11 16:57 | Progress Note - Cardiology ---
Cardiology SOAP Progress Note Subjective: No cp or palp or syncope or shortness of breath No n/v/d No weakness or focal weakness No groin or leg discomfort or discoloration Objective: I&O/Vital Signs 03/11/21 03/11/21 03/11/21 03/11/21 07:00 07:36 08:18 08:22 Temp 36.2 Pulse 59 73 Resp 16 B/P (MAP) 151/65 Pulse Ox 96 95 O2 Delivery Room Air Room Air Room Air 03/11/21 00:00 Intake Total 150 ml Output Total 500 ml Balance -350 ml Weight (Pounds): 146 Weight (Ounces): 3.0 Weight (Calculated Kilograms): 66.281565 Side: left Groin site without hematoma: Yes Condition: DP/PT pulses palpable Bruising: mild bruising Constitutional: AAO x 3, well-developed, well-nourished Respiratory: No accessory muscle use, No respiratory distress; chest expansion is symmetric, chest is bilaterally symmetric, other (prolonged exp phase) Cardiovascular: regular rate-rhythm; No JVD; S1 and S2 Gastrointestional: No tender; soft, round, audible bowel sounds Extremities: no lower extremity edema bilateral Neurologic/Psychiatric: grossly intact (moves all extremities) Skin: No rash on exposed areas, No ulcerations on exposed areas Results/Procedures: Labs Laboratory Tests 03/10/21 17:15: Troponin I 0.151H 03/10/21 22:59: Troponin I 0.200H 03/11/21 04:37: White Blood Count 7.5, Red Blood Count 3.43L, Hemoglobin 10.6L, Hematocrit 33L, Mean Corpuscular Volume 97, Mean Corpuscular Hemoglobin 31, Mean Corpuscular Hemoglobin Concent 32, Red Cell Distribution Width 13.7, Platelet Count 333, Loyda n Platelet Volume 10.3, Immature Granulocyte % (Auto) 0, Neutrophils (%) (Auto) 62, Lymphocytes (%) (Auto) 26, Monocytes (%) (Auto) 8, Eosinophils (%) (Auto) 3, Basophils (%) (Auto) 1, Neutrophils # (Auto) 4.6, Lymphocytes # (Auto) 1.9, Monocytes # (Auto) 0.6, Eosinophils # (Auto) 0.3, Basophils # (Auto) 0.1, Immature Granulocyte # (Auto) 0.0, Sodium Level 141, Potassium Level 3.8, Chlo ride Level 110H, Carbon Dioxide Level 20L, Anion Gap 11, Blood Urea Nitrogen 15, Creatinine 0.80, Estimat Glomerular Filtration Rate 71, BUN/Creatinine Ratio 19, Glucose Level 99, Calcium Level 8.7, Triglycerides Level 146, Cholesterol Level 141, LDL Cholesterol Direct 87, VLDL Cholesterol 29, HDL Cholesterol 36L Laboratory Tests 03/10/21 11:12 03/11/21 04:37 A/P: Assessment: NSTEMI and unstable angina - treated with PCI to distal RCA today (see under CAD below) CAD - h/o cor stent in [place] several years ago (she does not know details) - h/o ac inf wall STEMI, treated with primary PCI on 08/31/20 (see below) - card cath of 08/31/20: cor calcium present, 60-70% mid-LAD, patent stents in pro x portion of a dominant RCA, distal occlusion of RCA treated with Zuri 2.75 x 18 stent on 08/31/20, posterobasal & diaphragmatic akinesis, LVEF 40% - echo of 09/01/20 (to f/u on ischemic cardiomyopathy seen at card cath): LVEF 50- 55%, improved motion of inf wall, PASP 20-25% - card cath on 03/10/21: 60% mid LAD, mild to mod LCX, 99% RCA just distal to the distal edge of mid RCA stent (treated with 2.5x18 Skypoint stent, post- dilated with NC 3.0 x12 at the overlap with previous stent), distal RCA has 70% stenosis but vessel is of small caliber, LVEDP 10 mmHg, LVEF 55-60% PAD - observations at time of card cath of 08/31/20: kissing stents of ostial common iliacs, stent in R common and sup femoral (prevented sheath insertion) - right fem-pop in Dec [address] Qureshi at [facility] in [place], [place] Chronic tobacco use (1 ppd) Vague h/o COPD Plan: S/P cardiac cath with successful coronary intervention on 03-10-21 Continue DAPT, statin and BB Monitor labs Again advised to quit smoking immediately and completely Ambulate in the halls this morning and then d/c Clinical Quality Measures AMI/AHF: ASA po Prior to arrival: Yes MARCELLA SUBRAMANIAN MD FACP FAC CCDS Mar 11, 2021 16:57
--- NOTE | 2021-03-17 14:34 | Conscious Sedation/ASA ---
03/17/21 1434: Conscious Sedation Pre-Proced ASA Score For ASA 3 and 4: Consider anesthesia and medical clearance. Also, for patients with a history of failed moderate sedation consider anesthesia. Airway Lungs Heart ASA score ASA 1: a normal healthy patient ASA 2: a patient with a mild systemic disease (mid diabetes, controlled hypertension, obesity ASA 3: a patient with a severe systemic disease that limits activity (angina, COPD, prior Myocardial infarction) ASA 4: a patient with an incapacitating disease that is a constant threat to life (CHF, renal failure) ASA 5: a moribund patient not expected to survive 24 hrs. (ruptured aneurysm) ASA 6: a declared brain- patient whose organs are being harvested. For emergent operations, add the letter E after the classification Sedation Plan The patient is an appropriate candidate to undergo the planned procedure, sedation, and anesthesia. The patient immediately re-assessed prior to indication. MARCELLA SUBRAMANIAN MD [facility] 03/17/21 1623: Conscious Sedation Pre-Proced Time 14:00 ASA Score 3 Mallampati Classification Grade 2 Sedation Plan Analgesia, Amnesia, Plan communicated to team members, Discussed options with patient/fam, Discussed risks with patient/fam Mar 17, 2021 14:34 MARCELLA SUBRAMANIAN MD [facility] Mar 17, 2021 16:23
== END 2021-03-11 10:05 | disposition home or self-care (01) ==
LOC: EDUNIT# 10:57 → ER 10:59 → CSD 12:15
PROVIDERS: ADMIT Family Medicine; ATTEND Family Medicine
DX: I25.110 Atherosclerotic heart disease of native coronary artery with unstable angina pectoris (principal); I10 Essential (primary) hypertension; E78.00 Pure hypercholesterolemia, unspecified; I21.4 Non-ST elevation (NSTEMI) myocardial infarction; E78.5 Hyperlipidemia, unspecified; I73.9 Peripheral vascular disease, unspecified; I25.2 Old myocardial infarction; J44.9 Chronic obstructive pulmonary disease, unspecified; J18.9 Pneumonia, unspecified organism; F17.210 Nicotine dependence, cigarettes, uncomplicated; Z79.82 Long term (current) use of aspirin; Z79.899 Other long term (current) drug therapy; Z79.02 Long term (current) use of antithrombotics/antiplatelets; Z95.5 Presence of coronary angioplasty implant and graft
CPT/HCPCS: 71045; 80048; 80053; 80061; 82553; 83690; 83735; 83874; 83880; 84484; 85025 ×2; 85379; 85610; 85730; 93005; 93041; 93458; 94640; 94760; 99284; C1725 ×2; C1769; C1874; C1887; C1894 ×2; C9600; 36415

== ENCOUNTER 2021-08-28 15:51 | Emergency (ER) | payer MEDICARE ==
[~2021-08-28] VITALS: Ht 165.1 cm; Wt 36.3 kg
[2021-08-28] MEDS ORDERED: ASPIRIN 81 MG CHEW (CHILDREN'S ASA) PO ONE (16:00)
--- NOTE | 2021-08-28 16:01 | ED Chest Pain ---
General Chief Complaint: Chest Pain Stated Complaint: CP History of Present Illness Date Seen by Provider: Aug 28, 2021 Time Seen by Provider: 16:00 Initial Comments 71-year-old female with PMH of CAD with history of 4 stents, last 1 being in March 2021/hypertension, is here with complaints of indigestion, heartburn, and chest pain which began today morning around 7:30 AM. Patient states that she has been having acid reflux, heartburn and indigestion for this past week but did not have chest pain until today. Patient states she eats quite a bit of fried foods, chocolate, coffee. Today the pain was causing discomfort and she would rate the pain about a 7/10 at the time of pain. In the ER her chest pain and acid reflux had completely resolved. Denies shortness of breath, fever, cough, abdominal pain, nausea and vomiting, jaw pain, radiation to her jaw or left arm, dysuria, diarrhea. Allergies and Home Medications Allergies Coded Allergies: No Known Drug Allergies (Unverified , 02/16/18) Patient Home Medication List Home Medication List Reviewed: Yes Aspirin (Children's Aspirin) 81 Mg Tab.chew, 81 MG PO DAILY Prescribed by: CHARLES SINGH on 09/01/20 09 Atorvastatin Calcium (Lipitor) 40 Mg Tablet, 40 MG PO HS Prescribed by: NIKKI BONILLA on 03/11/21 09 Clopidogrel Bisulfate (Clopidogrel) 75 Mg Tablet, 75 MG PO DAILY Prescribed by: NIKKI BONILLA on 03/11/21912 Lisinopril (Lisinopril) 5 Mg Tablet, 5 MG PO DAILY Prescribed by: NIKKI BONILLA on 03/11/21912 Melatonin (Melatonin) 3 Mg Tablet, 3 MG PO HS, (Reported) Entered as Reported by: YESI MCGREGOR on 02/13/18 0855 Metoprolol Succinate (Metoprolol Succinate) 25 Mg Tab.er.24h, 25 MG PO DAILY Prescribed by: NIKKI BONILLA on 03/11/21 09 Review of Systems Review of Systems Constitutional: no symptoms reported EENTM: No Symptoms Reported Respiratory: No Symptoms Reported Cardiovascular: Chest Pain Gastrointestinal: Other (heartburn, indigestion) Genitourinary: No Symptoms Reported Musculoskeletal: no symptoms reported Skin: no symptoms reported Psychiatric/Neurological: No Symptoms Reported Endocrine: No Symptoms Reported Hematologic/Lymphatic: No Symptoms Reported Past Uyqbuzm-Ecktxv-Izqwmp Hx Immunizations Up To Date Tetanus Booster (TDap): Unknown PED Vaccines UTD: No Seasonal Allergies Seasonal Allergies: No Past Medical History Surgeries: Yes (Stents x 1) Coronary Stent, Vascular Surgery Respiratory: Yes Pneumonia, COPD Currently Using CPAP: No Currently Using BIPAP: No Cardiac: Yes Heart Attack, High Cholesterol, Hypertension Neurological: No 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 3.0oz. 66.491946cf; 22.78 BMI Method:Stated General Appearance: No Apparent Distress HEENT: PERRL/EOMI Neck: Full Range of Motion, Normal Inspection, Non Tender, Supple Respiratory: Chest Non Tender, Lungs Clear, Normal Breath Sounds Cardiovascular: Regular Rate, Rhythm, No Edema, Normal Peripheral Pulses Gastrointestinal: Normal Bowel Sounds, Non Tender, Soft Extremity: Normal Range of Motion Neurologic/Psychiatric: Alert, Oriented x3, No Motor/Sensory Deficits, Normal Mood/Affect Skin: Normal Color Progress/Results/Core Measures Results/Orders Lab Results Laboratory Tests Test 08/28/21 16:06 08/28/21 16:55 08/28/21 17:30 Range/Units White Blood Count 9.3 4.3-11.0 10^3/uL Red Blood Count 4.32 3.80-5.11 10^6/uL Hemoglobin 13.5 11.5-16.0 g/dL Hematocrit 40 35-52 % Mean Corpuscular Volume 92 80-99 fL Mean Corpuscular Hemoglobin 31 25-34 pg Mean Corpuscular Hemoglobin Concent 34 32-36 g/dL Red Cell Distribution Width 14.0 10.0-14.5 % Platelet Count 335 130-400 10^3/uL Mean Platelet Volume 9.7 9.0-12.2 fL Immature Granulocyte % (Auto) 0 % Neutrophils (%) (Auto) 61 42-75 % Lymphocytes (%) (Auto) 30 12-44 % Monocytes (%) (Auto) 7 0-12 % Eosinophils (%) (Auto) 2 0-10 % Basophils (%) (Auto) 1 0-10 % Neutrophils # (Auto) 5.6 1.8-7.8 10^3/uL Lymphocytes # (Auto) 2.8 1.0-4.0 10^3/uL Monocytes # (Auto) 0.7 0.0-1.0 10^3/uL Eosinophils # (Auto) 0.2 0.0-0.3 10^3/uL Basophils # (Auto) 0.1 0.0-0.1 10^3/uL Immature Granulocyte # (Auto) 0.0 0.0-0.1 10^3/uL Prothrombin Time 13.8 12.2-14.7 SEC INR Comment 1.0 0.8-1.4 Activated Partial Thromboplast Time 26 24-35 SEC D-Dimer 2.04 H 0.00-0.49 UG/ML Sodium Level 138 135-145 MMOL/L Potassium Level 3.7 3.6-5.0 MMOL/L Chloride Level 101 98-107 MMOL/L Carbon Dioxide Level 23 21-32 MMOL/L Anion Gap 14 5-14 MMOL/L Blood Urea Nitrogen 17 7-18 MG/DL Creatinine 0.93 0.60-1.30 MG/DL Estimat Glomerular Filtration Rate 66 BUN/Creatinine Ratio 18 Glucose Level 148 H 70-105 MG/DL Calcium Level 9.6 8.5-10.1 MG/DL Corrected Calcium 9.2 8.5-10.1 MG/DL Magnesium Level 2.1 1.6-2.4 MG/DL Total Bilirubin 0.4 0.1-1.0 MG/DL Aspartate Amino Transf (AST/SGOT) 18 5-34 U/L Alanine Aminotransferase (ALT/SGPT) 19 0-55 U/L Alkaline Phosphatase 151 H 40-136 U/L Troponin I < 0.30 < 0.30 <0.30 NG/ML Pro-B-Type Natriuretic Peptide 415.4 H <75.0 PG/ML Total Protein 8.0 6.4-8.2 GM/DL Albumin 4.5 3.2-4.5 GM/DL Lipase 49 8-78 U/L Urine Color YELLOW Urine Clarity CLEAR Urine pH 6.5 5-9 Urine Specific Edison 1.010 L 1.016-1.022 Urine Protein NEGATIVE NEGATIVE Urine Glucose (UA) NEGATIVE NEGATIVE Urine Ketones NEGATIVE NEGATIVE Urine Nitrite NEGATIVE NEGATIVE Urine Bilirubin NEGATIVE NEGATIVE Urine Urobilinogen 0.2 < = 1.0 MG/DL Urine Leukocyte Esterase NEGATIVE NEGATIVE Urine RBC (Auto) NEGATIVE NEGATIVE Urine RBC 2-5 H /HPF Urine WBC NONE /HPF Urine Squamous Epithelial Cells 2-5 /HPF Urine Crystals NONE /LPF Urine Bacteria TRACE /HPF Urine Casts NONE /LPF Urine Mucus NEGATIVE /LPF Urine Culture Indicated NO Urine Opiates Screen NEGATIVE NEGATIVE Urine Oxycodone Screen NEGATIVE NEGATIVE Urine Methadone Screen NEGATIVE NEGATIVE Urine Propoxyphene Screen NEGATIVE NEGATIVE Urine Barbiturates Screen NEGATIVE NEGATIVE Ur Tricyclic Antidepressants Screen NEGATIVE NEGATIVE Urine Phencyclidine Screen NEGATIVE NEGATIVE Urine Amphetamines Screen NEGATIVE NEGATIVE Urine Methamphetamines Screen NEGATIVE NEGATIVE Urine Benzodiazepines Screen NEGATIVE NEGATIVE Urine Cocaine Screen NEGATIVE NEGATIVE Urine Cannabinoids Screen NEGATIVE NEGATIVE My Orders Orders - ANEL RHOADES MD Cbc With Automated Diff (08/28/21 15:59) Magnesium (08/28/21 15:59) Chest 1 View Ap/Pa Only (08/28/21 15:59) Ekg Tracing (08/28/21 15:59) Comprehensive Metabolic Panel (08/28/21 15:59) Protime With Inr (08/28/21 15:59) Partial Thromboplastin Time (08/28/21 15:59) O2 (08/28/21 15:59) Monitor-Rhythm Ecg Trace Only (08/28/21 15:59) Aspirin Chewable Tablet (Baby Aspirin Ch (08/28/21 16:00) Ed Iv/Invasive Line Start (08/28/21 15:59) Lipase (08/28/21 15:59) Fibrin Degradation Products (08/28/21 15:59) Troponin I Fs (08/28/21 15:59) Probnp Fs (08/28/21 15:59) Drug Screen Stat (Urine) (08/28/21 15:59) Ua Culture If Indicated (08/28/21 15:59) Ct Angio Chest W (08/28/21 16:44) Iohexol Injection (Omnipaque 350 Mg/Ml 1 (08/28/21 17:00) Received Contrast (Hold Metformin- Contr (08/28/21 17:00) Ns (Ivpb) (Sodium Chloride 0.9% Ivpb Bag (08/28/21 17:00) Antacid Suspension (Mylanta Suspension (08/28/21 17:15) Famotidine Injection (Pepcid Injection) (08/28/21 17:15) Ekg Tracing (08/28/21 17:17) Troponin I Fs (08/28/21 17:17) Medications Given in ED Current Medications Medications Dose Ordered Sig/Scottie Route Start Time Stop Time Status Last Admin Dose Admin Al Hydrox/Mg Hydrox/Simethicone 30 ml ONCE ONCE PO 08/28/21 17:15 08/28/21 17:16 DC 08/28/21 17:21 30 ML Aspirin 324 mg ONCE ONCE PO 08/28/21 16:00 08/28/21 16:01 DC 08/28/21 16:34 324 MG Famotidine 20 mg ONCE ONCE IVP 08/28/21 17:15 08/28/21 17:16 DC 08/28/21 17:20 20 MG Iohexol 100 ml ONCE ONCE IV 08/28/21 17:00 08/28/21 17:01 DC 08/28/21 17:11 80 ML Sodium Chloride 100 ml ONCE ONCE IV 08/28/21 17:00 08/28/21 17:01 DC 08/28/21 17:11 100 ML Vital Signs/I&O 08/28/21 16:02 Temp 36.6 Pulse 85 Resp 18 B/P (MAP) 168/71 (103) Pulse Ox 97 O2 Delivery Room Air Progress Progress Note : Progress Note 1. CHEST PAIN: GERD - ACS RULE OUT - CXR: - EKG/ Troponin - UA/ UDS negative - ASA 324mg - Lisinopril 10mg - One episode of chest pain in ER, gave Pepcid 20mg iv and Maalox and pain resolved. - Pt took nitro before coming to ER - F/u with PCP and cardiology on Tuesday - Discussed pt with Dr Doan for potential observation admission due to pt's PMH : Hospitalist recommendation to discharge and follow up with PCP and Cardiology as it sounds like indigestion/ acid reflux. -The patient was seen in the ED, and treated appropriately to presentation at a specific point in time. Patient is informed that there is a possibility that disease and illness can evolve and change in acuity rapidly or slowly after patient is discharged from the ER. Precautionary advice given to the patient for immediate return to ER if symptoms worsen or do not resolve, and to seek emergency care sooner rather than later. Pt also advised on the importance of PCP follow up and compliance with management and follow up plan with PCP and/or specialist, as this is part of the management plan. Pt verbally expressed understanding. 2. ELEVATED D-DIMER: - D-dimer is 2.04 - CTA CHEST: no PE Departure Impression Primary Impression: Chest pain Qualified Codes: R07.9 - Chest pain, unspecified Additional Impression: Acid reflux disease Qualified Codes: K21.9 - Gastro-esophageal reflux disease without esophagitis Disposition: HOME, SELF-CARE Condition: Improved Departure-Patient Inst. Referrals: SELF,BECCA BRITTON (PCP/Family) Primary Care Physician Patient Instructions: Chest Pain, Adult ED, Acid Reflux and Gastroesophageal Reflux Disease in Adults Add. 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 All discharge instructions reviewed with patient and/or family. Voiced understanding. Scripts Mag Hydrox/Al Hydrox/Simeth (Maalox Maximum Strength Susp) 400 Mg-400 Mg-40 Mg/5 Ml Oral.susp 20 ML PO QID PRN for INDIGESTION for 14 Days, #400 ML Prov: ANEL RHOADES MD 08/28/21 Omeprazole (Omeprazole) 40 Mg Capsule.dr 40 MG PO DAILY for 14 Days, #14 CAP Prov: ANEL RHOADES MD 08/28/21 Famotidine (Pepcid) 20 Mg Tablet 20 MG PO BID for 14 Days, #28 TAB Prov: ANEL RHOADES MD 08/28/21 ANEL RHOADES MD Aug 28, 2021 16:01
[2021-08-28 16:13] LABS: BASOPHILS # (AUTO) 0.1 10^3/uL (0.0-0.1); BASOPHILS % (AUTO) 1 % (0-10); EOSINOPHILS # (AUTO) 0.2 10^3/uL (0.0-0.3); EOSINOPHILS % (AUTO) 2 % (0-10); HEMATOCRIT 40 % (35-52); HEMOGLOBIN 13.5 g/dL (11.5-16.0); LYMPHOCYTES # (AUTO) 2.8 10^3/uL (1.0-4.0); LYMPHOCYTES % (AUTO) 30 % (12-44); MEAN CORPUSCULAR HEMOGLOBIN 31 pg (25-34); MEAN CORPUSCULAR HGB CONC 34 g/dL (32-36); MEAN CORPUSCULAR VOLUME 92 fL (80-99); MEAN PLATELET VOLUME 9.7 fL (9.0-12.2); MONOCYTES # (AUTO) 0.7 10^3/uL (0.0-1.0); MONOCYTES % (AUTO) 7 % (0-12); NEUTROPHILS # (AUTO) 5.6 10^3/uL (1.8-7.8); NEUTROPHILS % (AUTO) 61 % (42-75); PLATELET COUNT 335 10^3/uL (130-400); WHITE BLOOD COUNT 9.3 10^3/uL (4.3-11.0)
--- NOTE | 2021-08-28 16:21 | Diagnostic Imaging Report ---
Indication: Chest pain. COMPARISON: 03/10/2021. FINDINGS: Single view the chest demonstrates slight cardiac enlargement. The lungs are otherwise clear. There is no pneumothorax. Osseous structures are age-appropriate. IMPRESSION: Negative chest. Dictated by: Dictated on workstation # [id number]
[2021-08-28 16:25] LABS: PROTHROMBIN TIME PATIENT 13.8 SEC (12.2-14.7)
[2021-08-28 16:30] LABS: ALBUMIN 4.5 GM/DL (3.2-4.5); BILIRUBIN,TOTAL 0.4 MG/DL (0.1-1.0); CALCIUM 9.6 MG/DL (8.5-10.1); CREATININE SERUM 0.93 MG/DL (0.60-1.30); MAGNESIUM 2.1 MG/DL (1.6-2.4); POTASSIUM 3.7 MMOL/L (3.6-5.0)
[2021-08-28 17:00] LABS: BILIRUBIN,URINE NEGATIVE (NEGATIVE); CLARITY,URINE CLEAR; COLOR,URINE YELLOW; GLUCOSE, URINE (UA) NEGATIVE (NEGATIVE); KETONES,URINE NEGATIVE (NEGATIVE); LEUKOCYTE ESTERASE ,URINE NEGATIVE (NEGATIVE); NITRITE,URINE NEGATIVE (NEGATIVE); PH,URINE 6.5 (5-9); PROTEIN,URINE NEGATIVE (NEGATIVE)
[2021-08-28] MEDS ORDERED: NS 100 ML (IVPB) BAG IV ONE (17:00)
[2021-08-28] MEDS ORDERED: IOHEXOL 350 MG/ML 100 ML (OMNIPAQUE 350) VIAL IV ONE (17:00)
[2021-08-28] MEDS ORDERED: HOLD METFORMIN - RECEIVED CONTRAST 20 ML VIAL IV SCH (17:00)
[2021-08-28 17:03] LABS: BACTERIA,URINE TRACE /HPF
[2021-08-28 17:10] LABS: AMPHETAMINE SCREEN, URINE NEGATIVE (NEGATIVE); BARBITURATE SCREEN URINE NEGATIVE (NEGATIVE); BENZODIAZEPINES SCREEN URINE NEGATIVE (NEGATIVE); CANNABINOID SCREEN, URINE NEGATIVE (NEGATIVE); COCAINE SCREEN URINE NEGATIVE (NEGATIVE); METHADONE STAT NEGATIVE (NEGATIVE); OPIATE SCREEN URINE NEGATIVE (NEGATIVE); OXYCODONE STAT NEGATIVE (NEGATIVE); PROPOXYPHENE STAT NEGATIVE (NEGATIVE); TRICYCLIC ANTIDEPRESSANTS SCRE NEGATIVE (NEGATIVE)
[2021-08-28] MEDS ORDERED: ANTACID SUSP 30 ML UDC (MYLANTA) PO ONE (17:15)
[2021-08-28] MEDS ORDERED: FAMOTIDINE 20MG/2ML IV (PEPCID) IVP ONE (17:15)
--- NOTE | 2021-08-28 17:23 | Diagnostic Imaging Report ---
PROCEDURE: CT angiography of the chest with contrast. TECHNIQUE: Multiple contiguous axial images were obtained through the chest after uneventful bolus administration of intravenous contrast. 3D reconstructed CTA MIP acquisitions were also performed. Auto Exposure Controls were utilized during the CT exam to meet ALARA standards for radiation dose reduction. INDICATION: Elevated D-dimer, chest pain There are no pulmonary emboli. There is no evidence for right ventricular strain. There is aortic atherosclerosis with no evidence of aneurysm or dissection. Lungs are clear. There are no effusions or pneumothoraces. IMPRESSION: No acute abnormality seen in the chest Dictated by: Dictated on workstation # [id number]
[2021-08-28] MEDS ORDERED: MAG355OR17 PO (18:27)
[2021-08-28] MEDS ORDERED: OMEP40CA6 PO (18:27)
[2021-08-28] MEDS ORDERED: FAMO-119 PO (18:27)
[2021-08-28] MEDS ORDERED: lisINopril 10 MG (PRINIVIL) TABLET PO ONE (18:30)
[2021-08-28] MEDS ORDERED: lisINopril 10 MG (PRINIVIL) TABLET ONE (18:32)
[2021-08-28 18:34] VITALS: BP 157/75
== END 2021-08-28 18:34 | disposition home or self-care (01) ==
LOC: EDUNIT# 15:51 → ER FS 15:52
DX: K21.9 Gastro-esophageal reflux disease without esophagitis (principal)
CPT/HCPCS: 36415; 71045; 71275; 80053; 80306; 81000; 83690; 83735; 83880; 84484; 85025; 85379; 85610; 85730; 93005; 93041; Q9967

== ENCOUNTER 2021-10-06 15:00 | Day surgery (SDC) | payer MEDICARE ==
[2021-10-06] VITALS (20 sets, daily range): BP systolic 91–159; BP diastolic 38–75
[~2021-10-06] VITALS: Ht 165.1 cm; Wt 63.6 kg
[2021-10-06 13:20] LABS: HEMATOCRIT 44 % (35-52); HEMOGLOBIN 14.3 g/dL (11.5-16.0); MEAN CORPUSCULAR HEMOGLOBIN 31 pg (25-34); MEAN CORPUSCULAR HGB CONC 33 g/dL (32-36); MEAN CORPUSCULAR VOLUME 96 fL (80-99); MEAN PLATELET VOLUME 9.7 fL (9.0-12.2); PLATELET COUNT 356 10^3/uL (130-400); WHITE BLOOD COUNT 8.1 10^3/uL (4.3-11.0)
[2021-10-06 13:31] LABS: CHLORIDE 104 MMOL/L (98-107); SODIUM 138 MMOL/L (135-145)
[2021-10-06 13:32] LABS: ALBUMIN 4.7 GM/DL (3.2-4.5)
[2021-10-06 13:33] LABS: PROTHROMBIN TIME PATIENT 13.3 SEC (12.2-14.7); TRIGLYCERIDES 162 MG/DL (<150); VLDL CHOLESTEROL 32 MG/DL (5-40)
[2021-10-06 13:34] LABS: GLUCOSE 82 MG/DL (70-105); TOTAL PROTEIN 8.6 GM/DL (6.4-8.2)
[2021-10-06 13:35] LABS: CARBON DIOXIDE 23 MMOL/L (21-32)
[2021-10-06 13:36] LABS: BILIRUBIN,TOTAL 0.6 MG/DL (0.1-1.0)
[2021-10-06 13:37] LABS: ALKALINE PHOSPHATASE 148 U/L (40-136); CREATININE SERUM 1.03 MG/DL (0.60-1.30); GFR ESTIMATED 58
[2021-10-06 13:38] LABS: CHOLESTEROL 194 MG/DL (< 200)
[2021-10-06 13:39] LABS: BUN/CREATININE RATIO 17
[2021-10-06 13:40] LABS: HDL CHOLESTEROL 49 MG/DL (40-60)
[2021-10-06 13:41] LABS: ALANINE AMINOTRANSFERASE 17 U/L (0-55)
[2021-10-06] MEDS: NS IV 1000 ML 1,000 ML IV SCH ×3 (14:08→23:21)
[~2021-10-06 15:00] MED LIST changes: +EPTIFIBATIDE BOLUS 20 ML IV ONE; +FAMO-119 PO; +HEParin (CATH LAB) 1,000 ML IV ONE; +HEParin 1000 UNIT/ML (10ML VIAL) FOR BOLUS ONE; +LIDOCAINE 1% INJ 20 ML VIAL ONE; +MAG355OR17 PO; +MIDAZOLAM 5 MG/5 ML (VERSED) VIAL ONE; +NITRO DRIP 25000 MCG/D5W 0 ML IV ONE; +NS IV 1000 ML 1,000 ML ONE; +OMEP40CA6 PO; +fentaNYL INJ 100 MCG/2 ML AMP ONE
[2021-10-06] MEDS ORDERED: ASPIRIN 81 MG CHEW (CHILDREN'S ASA) ONE (15:17)
[2021-10-06] MEDS ORDERED: CLOPIDOGREL 75 MG (PLAVIX) TABLET ONE (15:17)
--- NOTE | 2021-10-06 15:33 | Cardiac Procedure Note-CS/ASA ---
Pre-Procedure Note Pre-Op Procedure Note H&P Reviewed The H&P was reviewed, patient examined and no changes noted. Date H&P Reviewed: Oct 06, 2021 Time H&P Reviewed: 14:15 Conscious Sedation Pre-Proced Time 14:15 ASA Score 3 For ASA 3 and 4: Consider anesthesia and medical clearance. Also, for patients with a history of failed moderate sedation consider anesthesia. Airway Lungs Heart ASA score ASA 1: a normal healthy patient ASA 2: a patient with a mild systemic disease (mid diabetes, controlled hypertension, obesity ASA 3: a patient with a severe systemic disease that limits activity (angina, COPD, prior Myocardial infarction) ASA 4: a patient with an incapacitating disease that is a constant threat to life (CHF, renal failure) ASA 5: a moribund patient not expected to survive 24 hrs. (ruptured aneurysm) ASA 6: a declared brain- patient whose organs are being harvested. For emergent operations, add the letter E after the classification Mallampati Classification Grade 2 Sedation Plan Analgesia, Amnesia, Plan communicated to team members The patient is an appropriate candidate to undergo the planned procedure, sedation, and anesthesia. The patient immediately re-assessed prior to indication. MARCELLA SUBRAMANIAN MD FACP FACC CCDS Oct 06, 2021 15:33
[2021-10-06] MEDS ORDERED: PATIENT MAY USE OWN MEDS, ALL PO SCH (15:45)
[2021-10-06] MEDS ORDERED: ANTACID SUSP 30 ML UDC (MYLANTA) PO PRN (15:45)
[2021-10-06] MEDS ORDERED: ACETAMINOPHEN 325 MG TABLET PO PRN (15:45)
[2021-10-06] MEDS ORDERED: fentaNYL INJ 100 MCG/2 ML AMP IVP ONE (17:00)
[2021-10-06] MEDS ORDERED: ATROPINE INJ 0.4 MG/ML SDV IV ONE (17:00)
[2021-10-06] MEDS ORDERED: fentaNYL INJ 100 MCG/2 ML AMP ONE (17:10)
[2021-10-06] MEDS ORDERED: ATROPINE INJ 0.4 MG/ML SDV ONE (17:10)
--- NOTE | 2021-10-06 18:03 | CARDIAC CATHETERIZATION ---
DATE OF SERVICE: 10/06/2021 CARDIAC CATHETERIZATION AND CORONARY INTERVENTION REPORT INDICATION FOR PROCEDURE: The patient is a 71-year-old lady, who has a history of coronary artery disease and has had multiple interventions to the right coronary. She has recently developed symptoms of unstable angina. Cardiac catheterization was recommended. Informed consent was obtained. DESCRIPTION OF PROCEDURE: She was brought to the cardiac catheterization laboratory in a fasting state. The left groin was prepared and draped in the usual sterile fashion. Lidocaine 1% was used for local anesthesia. Modified Seldinger technique was used to advance a 6-Montserratian sheath into the left femoral artery. All catheter exchanges were made over an exchange length wire. We used 5-Montserratian JL$ catheter for left coronary angiography. A 5-Montserratian JR4 catheter was not resulting in good engagement of the right coronary system. We were able to engage the right coronary artery with a 6-Montserratian Duy right catheter. Subsequently, percutaneous intervention was carried out in the right coronary artery and it is described below. Following completion of the interventional procedure, we carried out left heart catheterization with a 5-Montserratian pigtail catheter. Left ventricular angiography was performed. The catheter was then removed. The sheath was sutured in place and the patient was transferred to the floor for manual sheath removal. PERCUTANEOUS INTERVENTION OF THE RIGHT CORONARY: The distal right coronary within the most distal stent had 95% to 99% stenosis. Antegrade flow beyond the stenosis was KANDI 1. We gave 5000 units of intravenous heparin. We gave a double bolus of Integrilin during the procedure. We used a 6-Montserratian Duy right guide catheter with side holes to engage the right coronary artery. We advanced a BMW wire across the lesion in the distal most stent. The tip was placed in the posterior descending branch of the right coronary. We carried out balloon angioplasty at the site of in-stent restenosis with a 2.0 x 20 mm balloon. Multiple balloon inflations were carried out. Subsequent angiography reveals no significant residual stenosis and flow throughout the vessel is normal. Antegrade flow is KANDI 3, following intervention. She tolerated the procedure well. HEMODYNAMICS: Left ventricular end-diastolic pressure following coronary angiography was 9 mmHg. There is no significant pressure gradient on pullback across the aortic valve. Ascending aortic pressure is 118/52 with a mean of 64 mmHg. CORONARY ANGIOGRAPHY: Left main coronary artery is free of significant disease. The left anterior descending artery has tandem 50% stenosis in its proximal and mid portions. The left circumflex artery has mild to moderate diffuse plaque. The right coronary artery had 95% to 99% stenosis in the distal part of the distal most stent, which was treated with balloon angioplasty with no significant residual stenosis and improvement of flow from KANDI 1 to KANDI 3. LEFT VENTRICULAR ANGIOGRAPHY: The left ventricular angiography was carried out in the right anterior oblique projection. Global left ventricular systolic function appears to be well preserved. Left ventricular ejection fraction is approximately 50% to 55%. CONCLUSIONS: 1. Coronary artery disease primarily consisting of 95% to 99% stenosis in the distal most stent of the right coronary that was treated successfully with balloon angioplasty with improvement of distal flow to KANDI 3. The entire proximal and mid right coronary artery has previously been stented. Other than the lesion mentioned, there is no significant stenosis in the stents. The left anterior descending artery has 50% stenoses in its proximal and mid portions. The left circumflex artery has mild to moderate diffuse disease. 2. Well preserved global systolic function with an ejection fraction of 55% to 60%. 3. Left ventricular end-diastolic pressure 9 mmHg. DISCUSSION AND RECOMMENDATIONS: Dual antiplatelet therapy is being continued. Previous cardiac regimen is being continued. She has been advised to quit smoking immediately and completely. Job ID: [id number] DocumentID: [id number] Dictated Date: 10/06/2021 15:29:05 Division Field Inspector Date: 10/06/2021 18:02:05 Dictated By: MARCELLA SUBRAMANIAN MD, MA, FACP, FACC, MTDD
[2021-10-06] MEDS ORDERED: FAMOTIDINE 20 MG (PEPCID) TABLET PO SCH (21:00)
[2021-10-06] MEDS ORDERED: MELATONIN 3 MG TABLET PO SCH (21:00)
[2021-10-07 00:46] VITALS: BP 105/41
[2021-10-07 01:05] VITALS: BP 103/46
[2021-10-07 02:00] VITALS: BP 117/54
[2021-10-07] MEDS: NS IV 1000 ML 1,000 ML IV SCH ×2 (02:12→08:45)
[2021-10-07 04:00] VITALS: BP 107/42
[2021-10-07 05:13] LABS: BASOPHILS # (AUTO) 0.1 10^3/uL (0.0-0.1); BASOPHILS % (AUTO) 1 % (0-10); EOSINOPHILS # (AUTO) 0.1 10^3/uL (0.0-0.3); EOSINOPHILS % (AUTO) 2 % (0-10); HEMATOCRIT 38 % (35-52); HEMOGLOBIN 12.3 g/dL (11.5-16.0); LYMPHOCYTES # (AUTO) 1.5 10^3/uL (1.0-4.0); LYMPHOCYTES % (AUTO) 26 % (12-44); MEAN CORPUSCULAR HEMOGLOBIN 31 pg (25-34); MEAN CORPUSCULAR HGB CONC 33 g/dL (32-36); MEAN CORPUSCULAR VOLUME 96 fL (80-99); MEAN PLATELET VOLUME 10.2 fL (9.0-12.2); MONOCYTES # (AUTO) 0.5 10^3/uL (0.0-1.0); MONOCYTES % (AUTO) 9 % (0-12); NEUTROPHILS # (AUTO) 3.6 10^3/uL (1.8-7.8); NEUTROPHILS % (AUTO) 62 % (42-75); PLATELET COUNT 296 10^3/uL (130-400); WHITE BLOOD COUNT 5.8 10^3/uL (4.3-11.0)
[2021-10-07 05:26] LABS: POTASSIUM 4.4 MMOL/L (3.6-5.0)
[2021-10-07 05:28] LABS: CALCIUM 8.9 MG/DL (8.5-10.1)
[2021-10-07 05:32] LABS: CREATININE SERUM 1.01 MG/DL (0.60-1.30)
[2021-10-07 05:34] LABS: MAGNESIUM 2.2 MG/DL (1.6-2.4)
[2021-10-07 06:00] VITALS: BP 121/59
[2021-10-07 08:00] VITALS: BP 138/59
--- NOTE | 2021-10-07 08:10 | Progress Note - Cardiology ---
Cardiology SOAP Progress Note Objective: I&O/Vital Signs 10/06/21 10/06/21 10/06/21 10/07/21 21:00 22:00 23:00 00:46 Pulse 61 64 58 58 Resp 23 19 19 27 B/P (MAP) 111/70 (89) 91/38 (64) 109/48 (76) 105/41 (66) Pulse Ox 92 91 90 94 O2 Delivery Room Air Room Air Room Air Room Air 10/07/21 10/07/21 10/07/21 10/07/21 01:00 01:05 02:00 03:00 Pulse 60 56 56 65 Resp 20 21 17 B/P (MAP) 103/46 (68) 117/54 (76) Pulse Ox 93 91 94 O2 Delivery Room Air Room Air Room Air 10/07/21 10/07/21 10/07/21 04:00 05:00 06:00 Pulse 54 52 54 Resp 18 20 38 B/P (MAP) 107/42 (67) 121/59 (79) Pulse Ox 93 94 96 O2 Delivery Room Air Room Air Room Air 10/06/21 23:59 Intake Total 500 ml Balance 500 ml Weight (Pounds): 146 Weight (Ounces): 3.0 Weight (Calculated Kilograms): 66.840060 Results/Procedures: Labs Laboratory Tests 10/06/21 13:10: White Blood Count 8.1, Red Blood Count 4.58, Hemoglobin 14.3, Hematocrit 44, Mean Corpuscular Volume 96, Mean Corpuscular Hemoglobin 31, Mean Corpuscular Hemoglobin Concent 33, Red Cell Distribution Width 13.8, Platelet Count 356, Mean Platelet Volume 9.7, Prothrombin Time 13.3, INR Comment 1.0, Activated Partial Thromboplast Time 29, Sodium Level 138, Potassium Level 4.0, Chloride Level 104, Carbon Dioxide Level 23, Anion Gap 11, Blood Urea Nitrogen 18, Creatinine 1.03, Estimat Glomerular Filtration Rate 58, BUN/Creatinine Ratio 17, Glucose Level 82, Calcium Level 10.0, Corrected Calcium , Total Bilirubin 0.6, Aspartate Amino Transf (AST/SGOT) 21, Alanine Aminotransferase (ALT/SGPT) 17, Alkaline Phosphatase 148H, Total Protein 8.6H, Albumin 4.7H, Triglycerides Level 162H, Cholesterol Level 194, LDL Cholesterol Direct 123, VLDL Cholesterol 32, HDL Cholesterol 49 10/07/21 04:15: White Blood Count 5.8, Red Blood Count 3.93, Hemoglobin 12.3, Hematocrit 38, Mean Corpuscular Volume 96, Mean Corpuscular Hemoglobin 31, Mean Corpuscular Hemoglobin Concent 33, Red Cell Distribution Width 14.0, Platelet Count 296, Mean Platelet Volume 10.2, Sodium Level 139, Potassium Level 4.4, Chloride Level 108H, Carbon Dioxide Level 21, Anion Gap 10, Blood Urea Nitrogen 18, Creatinine 1.01, Estimat Glomerular Filtration Rate 60, BUN/Creatinine Ratio 18, Glucose Level 91, Calcium Level 8.9, Immature Granulocyte % (Auto) 0, Neutrophils (%) (Auto) 62, Lymphocytes (%) (Auto) 26, Monocytes (%) (Auto) 9, Eosinophils (%) (Auto) 2, Basophils (%) (Auto) 1, Neutrophils # (Auto) 3.6, Lymphocytes # (Auto) 1.5, Monocytes # (Auto) 0.5, Eosinophils # (Auto) 0.1, Basophils # (Auto) 0.1, Immature Granulocyte # (Auto) 0.0, Magnesium Level 2.2 Laboratory Tests 10/06/21 13:10 10/07/21 04:15 A/P: Assessment: CAD - h/o cor stent in [place] several years ago (she does not know details) - h/o ac inf wall STEMI, treated with primary PCI on 08/31/20 (see below) - card cath of 08/31/20: cor calcium present, 60-70% mid-LAD, patent stents in prox portion of a dominant RCA, distal occlusion of RCA treated with Zuri 2.75 x 18 stent on 08/31/20, posterobasal & diaphragmatic akinesis, LVEF 40% - echo of 09/01/20 (to f/u on ischemic cardiomyopathy seen at card cath): LVEF 50- 55%, improved motion of inf wall, PASP 20-25% - card cath on 03/10/21: 60% mid LAD, mild to mod LCX, 99% RCA just distal to the distal edge of mid RCA stent (treated with 2.5x18 Skypoint stent, post- dilated with NC 3.0 x12 at the overlap with previous stent), distal RCA has 70% stenosis but vessel is of small caliber, LVEDP 10 mmHg, LVEF 55-60% - Cardiac cath of 10-06-21: primarily consisting of 95% to 99% stenosis in the distal most stent of the right coronary that was treated successfully with ba lloon angioplasty with improvement of distal flow to KANDI 3. The entire proximal and mid right coronary artery has previously been stented. Other than the lesion mentioned, there is no significant stenosis in the stents. The left anterior descending artery has 50% stenoses in its proximal and mid portions. The left circumflex artery has mild to moderate diffuse disease. Well preserved global systolic function with an ejection fraction of 55% to 60%. Left ventricular end-diastolic pressure 9 mmHg. PAD - observations at time of card cath of 08/31/20: kissing stents of ostial common iliacs, stent in R common and sup femoral (prevented sheath insertion) - right fem-pop in Dec [address] Qureshi at [facility] in [place], [place] Chronic tobacco use - currently 4-6 cigs per day H/o COPD CHARLES SINGHP Oct 07, 2021 08:10
[2021-10-07] MEDS ORDERED: PANT40TA52 PO (08:11)
--- NOTE | 2021-10-07 08:12 | Discharge Inst-Cardiology ---
Discharge Inst-Cardiac Discharge Medications New Medications: Pantoprazole Sodium (Pantoprazole Sodium) 40 Mg Tablet.dr 40 MG PO DAILY, #30 TAB 1 Refill Continued Medications: Aspirin (Children's Aspirin) 81 Mg Tab.chew 81 MG PO DAILY, #60 TAB 3 Refills Atorvastatin Calcium (Lipitor) 40 Mg Tablet 40 MG PO HS, #90 TAB 3 Refills Clopidogrel Bisulfate (Clopidogrel) 75 Mg Tablet 75 MG PO DAILY, #90 TAB 3 Refills Famotidine (Pepcid) 20 Mg Tablet 20 MG PO BID for 14 Days, #28 TAB Lisinopril (Lisinopril) 5 Mg Tablet 5 MG PO DAILY, #90 TAB 3 Refills Mag Hydrox/Al Hydrox/Simeth (Maalox Maximum Strength Susp) 400 Mg-400 Mg-40 Mg/5 Ml Oral.susp 20 ML PO QID PRN for INDIGESTION for 14 Days, #400 ML Melatonin (Melatonin) 3 Mg Tablet 3 MG PO HS, TAB Metoprolol Succinate (Metoprolol Succinate) 25 Mg Tab.er.24h 25 MG PO DAILY, #90 TAB 3 Refills Discontinued Medications: Omeprazole (Omeprazole) 40 Mg Capsule.dr 40 MG PO DAILY for 14 Days, #14 CAP New, Converted or Re-Newed RX: Transmitted to Pharmacy Patient Instructions Patient Instructions: Please scheduled follow up appointment to see Dr. Ward in 6 weeks CHARLES SINGH Oct 07, 2021 08:12
[2021-10-07] MEDS ORDERED: lisINopril 5 MG (PRINIVIL) TABLET PO SCH (09:00)
[2021-10-07] MEDS ORDERED: CLOPIDOGREL 75 MG (PLAVIX) TABLET PO SCH (09:00)
[2021-10-07] MEDS ORDERED: PANTOPRAZOLE 40 MG (PROTONIX) TAB PO SCH (09:00)
[2021-10-07] MEDS ORDERED: ASPIRIN 81 MG CHEW (CHILDREN'S ASA) PO SCH (09:00)
[2021-10-07] MEDS ORDERED: NON-FORMULARY MEDICATION 1 EA EA (Omeprazole 40 MG) PO SCH (09:00)
--- NOTE | 2021-10-07 12:57 | Progress Note - Cardiology ---
Cardiology SOAP Progress Note Subjective: No cp or palp or syncope or shortness of breath No groin or leg discomfor No n/v/d Objective: I&O/Vital Signs 10/07/21 10/07/21 10/07/21 10/07/21 01:00 01:05 02:00 03:00 Pulse 60 56 56 65 Resp 20 21 17 B/P (MAP) 103/46 (68) 117/54 (76) Pulse Ox 93 91 94 O2 Delivery Room Air Room Air Room Air 10/07/21 10/07/21 10/07/21 10/07/21 04:00 05:00 06:00 07:00 Pulse 54 52 54 68 Resp 18 20 38 B/P (MAP) 107/42 (67) 121/59 (79) Pulse Ox 93 94 96 O2 Delivery Room Air Room Air Room Air 10/07/21 10/07/21 10/07/21 08:00 08:00 08:00 Temp 36.5 Pulse 62 Resp 26 B/P (MAP) 138/59 (85) Pulse Ox 93 O2 Delivery Room Air Room Air 10/07/21 00:00 Intake Total 500 ml Balance 500 ml Weight (Pounds): 146 Weight (Ounces): 3.0 Weight (Calculated Kilograms): 66.636412 Device Insertion Site: without hematoma Bruising: mild bruising Constitutional: AAO x 3, well-developed, other (thiin-appearing) Respiratory: No accessory muscle use; other (fair air entry, prolonged exp phase) Cardiovascular: regular rate-rhythm, S1 and S2, systolic murmur (soft NOE at card base) Gastrointestional: No tender; soft; No guarding, No rebound; audible bowel sounds Extremities: No clubbing, No cyanosis, No significant edema Neurologic/Psychiatric: oriented x 3, other (moves all limbs equally) Skin: No rash, No ulcerations Results/Procedures: Labs Laboratory Tests 10/06/21 13:10: White Blood Count 8.1, Red Blood Count 4.58, Hemoglobin 14.3, Hematocrit 44, Mean Corpuscular Volume 96, Mean Corpuscular Hemoglobin 31, Mean Corpuscular Hemoglobin Concent 33, Red Cell Distribution Width 13.8, Platelet Count 356, Mean Platelet Volume 9.7, Prothrombin Time 13.3, INR Comment 1.0, Activated Partial Thromboplast Time 29, Sodium Level 138, Potassium Level 4.0, Chloride Level 104, Carbon Dioxide Level 23, Anion Gap 11, Blood Urea Nitrogen 18, Creatinine 1.03, Estimat Glomerular Filtration Rate 58, BUN/Creatinine Ratio 17, Glucose Level 82, Calcium Level 10.0, Corrected Calcium , Total Bilirubin 0.6, Aspartate Amino Transf (AST/SGOT) 21, Alanine Aminotransferase (ALT/SGPT) 17, Alkaline Phosphatase 148H, Total Protein 8.6H, Albumin 4.7H, Triglycerides Level 162H, Cholesterol Level 194, LDL Cholesterol Direct 123, VLDL Cholesterol 32, HDL Cholesterol 49 10/07/21 04:15: White Blood Count 5.8, Red Blood Count 3.93, Hemoglobin 12.3, Hematocrit 38, Me an Corpuscular Volume 96, Mean Corpuscular Hemoglobin 31, Mean Corpuscular Hemoglobin Concent 33, Red Cell Distribution Width 14.0, Platelet Count 296, Mean Platelet Volume 10.2, Sodium Level 139, Potassium Level 4.4, Chloride Level 108H, Carbon Dioxide Level 21, Anion Gap 10, Blood Urea Nitrogen 18, Creatinine 1.01, Estimat Glomerular Filtration Rate 60, BUN/Creatinine Ratio 18, Glucose Level 91, Calcium Level 8.9, Immature Granulocyte % (Auto) 0, Neutrophils (%) (Auto) 62, Lymphocytes (%) (Auto) 26, Monocytes (%) (Auto) 9, Eosinophils (%) (Auto) 2, Basophils (%) (Auto) 1, Neutrophils # (Auto) 3.6, Lymphocytes # (Auto) 1.5, Monocytes # (Auto) 0.5, Eosinophils # (Auto) 0.1, Basophils # (Auto) 0.1, Immature Granulocyte # (Auto) 0.0, Magnesium Level 2.2 Microbiology 10/06/21 MRSA Screen - Final, Complete MRSA not isolated Laboratory Tests 10/06/21 13:10 10/07/21 04:15 A/P: Assessment: CAD - h/o cor stent in [place] several years ago (she does not know details) - h/o ac inf wall STEMI, treated with primary PCI on 08/31/20 (see below) - card cath of 08/31/20: cor calcium present, 60-70% mid-LAD, patent stents in prox portion of a dominant RCA, distal occlusion of RCA treated with Zuri 2.75 x 18 stent on 08/31/20, posterobasal & diaphragmatic akinesis, LVEF 40% - echo of 09/01/20 (to f/u on ischemic cardiomyopathy seen at card cath): LVEF 50- 55%, improved motion of inf wall, PASP 20-25% - card cath on 03/10/21: 60% mid LAD, mild to mod LCX, 99% RCA just distal to the distal edge of mid RCA stent (treated with 2.5x18 Skypoint stent, post- dilated with NC 3.0 x12 at the overlap with previous stent), distal RCA has 70% stenosis but vessel is of small caliber, LVEDP 10 mmHg, LVEF 55-60% - Cardiac cath of 10-06-21: primarily consisting of 95% to 99% stenosis in the distal most stent of the right coronary that was treated successfully with balloon angioplasty with improvement of distal flow to KANDI 3. The entire proximal and mid right coronary artery has previously been stented. Other than the lesion mentioned, there is no significant stenosis in the stents. The left anterior descending artery has 50% stenoses in its proximal and mid portions. The left circumflex artery has mild to moderate diffuse disease. Well preserved global systolic function with an ejection fraction of 55% to 60%. Left ventricular end-diastolic pressure 9 mmHg. PAD - observations at time of card cath of 08/31/20: kissing stents of ostial common iliacs, stent in R common and sup femoral (prevented sheath insertion) - right fem-pop in Dec [address] Qureshi at [facility] in [place], [place] Chronic tobacco use - currently 4-6 cigs per day H/o COPD Plan: * I reviewed her cath findings and interventions with her in detail and answered questions * Compliance with meds advised * Immediate cessation of tobacco use advised * Outpt f/u advised MARCELLA SUBRAMANIAN MD [facility] CCDS Oct 07, 2021 12:57
== END 2021-10-07 11:57 | disposition home or self-care (01) ==
LOC: CATH 15:00 → ICU 16:15 → CATH 10-07 11:57
PROVIDERS: ATTEND Internal Medicine Cardiovascular Disease
DX: I25.10 Atherosclerotic heart disease of native coronary artery without angina pectoris (principal); F17.210 Nicotine dependence, cigarettes, uncomplicated
CPT/HCPCS: 80048; 80053; 80061; 83735; 85025; 85027; 85610; 85730; 87081; 92920; 93005 ×2; 93458; C1725; C1769; C1894 ×2; 36415